=== PATIENT | female | born 1965 | race Caucasian/White ===

== ENCOUNTER → 2017-11-19 | Outpatient (CLI) | payer BC, SELFPAY | PROVIDERS: Visit Provider Internal Medicine Adolescent Medicine | DX: M25.562 Pain in left knee (principal); M25.462 Effusion, left knee | CPT/HCPCS: 73721 ==

== ENCOUNTER → 2018-12-17 15:16 | Outpatient (CLI) | payer MEDICAID, SELFPAY ==
[2018-12-17 15:31] LABS: Basophils # 0.1 K/mm3 (0-0.2); Basophils % 0.6 % (0.1-2.0); Eosinophils # 0.6 K/mm3 (0.0-0.4); Eosinophils % 4.9 % (0.1-12.0); Hematocrit 44.2 % (37.0-47.0); Hemoglobin 14.8 g/dL (12.2-16.2); Lymphocytes # 3.5 K/mm3 (0.7-4.5); Lymphocytes % 28.2 % (10-50); Mean Corpuscular HGB Conc 33.4 g/dL (31.8-35.4); Mean Corpuscular Volume 86.8 fl (81-99); Mean Platelet Volume 7.2 fl (7.4-10.4); Monocytes # 0.8 K/mm3 (0.1-1.0); Monocytes % 6.2 % (1.7-9.3); Neutrophils # 7.4 K/mm3 (1.8-7.8); Neutrophils % 60.1 % (37.0-80.0); Platelet Count 372 K/mm3 (142-424); Red Blood Count 5.09 M/mm3 (4.20-5.40); Red Cell Distribution Width 12.8 % (11.5-17.5); White Blood Count 12.3 K/mm3 (4.8-10.8)
[2018-12-17 17:32] LABS: Hemoglobin A1C 5.9 % (0.0-7.0)
[2018-12-17 18:03] LABS: Alanine Aminotransferase 42 U/L (12-78); Albumin Level 3.7 gm/dL (3.4-5.0); Alkaline Phosphatase 106 U/L (46-116); Anion Gap 14.8 mEq/L (5-15); Aspartate Amino Transferase 24 U/L (15-37); Bilirubin,Total 0.4 mg/dL (0.2-1.0); Blood Urea Nitrogen 11 mg/dL (7-18); Calcium 9.1 mg/dL (8.5-10.1); Carbon Dioxide 27 mmol/L (21.0-32.0); Chloride 102 mmol/L (98-107); Creatinine,Serum 0.85 mg/dL (0.55-1.02); Estimated Glomerular Filt Rate 69 ml/min (>60); GFR (African American) 84 ML/MIN (>60); Globulin 3.7 gm/dl (1.3-3.2); Glucose 114 mg/dL (74-106); Potassium 3.8 mmoL/L (3.5-5.1); Sodium 140 mmol/L (136-145); Thyroid Stimulating Hormone 2.11 uIU/ml (0.358-3.740); Total Protein,Serum 7.4 gm/dL (6.4-8.2)
== END ==
PROVIDERS: Visit Provider Internal Medicine Adolescent Medicine
DX: I10 Essential (primary) hypertension (principal)
CPT/HCPCS: 36415; 80053; 83036; 84443; 85025

== ENCOUNTER 2019-03-16 12:28 | Inpatient (IN) ==
[2019-03-16 13:45] LABS: Basophils # 0.1 K/mm3 (0-0.2); Basophils % 0.5 % (0.1-2.0); Eosinophils # 0.1 K/mm3 (0.0-0.4); Eosinophils % 0.6 % (0.1-12.0); Hematocrit 46.3 % (37.0-47.0); Hemoglobin 15.5 g/dL (12.2-16.2); Lymphocytes # 2.9 K/mm3 (0.7-4.5); Lymphocytes % 25.6 % (10-50); Mean Corpuscular HGB Conc 33.5 g/dL (31.8-35.4); Mean Corpuscular Volume 86.6 fl (81-99); Monocytes # 0.5 K/mm3 (0.1-1.0); Monocytes % 4.7 % (1.7-9.3); Neutrophils # 7.7 K/mm3 (1.8-7.8); Neutrophils % 68.6 % (37.0-80.0); Platelet Count 374 K/mm3 (142-424); Red Blood Count 5.34 M/mm3 (4.20-5.40); Red Cell Distribution Width 13.2 % (11.5-17.5); White Blood Count 11.3 K/mm3 (4.8-10.8)
[2019-03-16 13:56] LABS: Albumin Level 3.5 gm/dL (3.4-5.0); Albumin/Globulin Ratio 0.8 (1.1-1.8); Bilirubin,Total 0.5 mg/dL (0.2-1.0); C-Reactive Protein 0.9 mg/L (0.0-0.9); Calcium 9.3 mg/dL (8.5-10.1); Globulin 4.3 gm/dl (1.3-3.2); Total Protein,Serum 7.8 gm/dL (6.4-8.2)
--- NOTE | 2019-03-16 14:15 | Pharmacy Consult Notes ---
[facility] Pharmacy VTE Monitoring - Patient Demographics Admission date: 03/16/19 Report Date: 03/16/19 Time: 14:14 Allergies/Adverse Reactions: Patient Allergies No Known Allergies Allergy (Verified 03/16/19 13:32) Height: 1.8 m Weight: 110.903 kg - VTE Risk Labs: VTE Related Lab Results Hgb 15.5 g/dL (12.2-16.2) 03/16/19 13:20 Hct 46.3 % (37.0-47.0) 03/16/19 13:20 Plt Count 374 K/mm3 (142-424) 03/16/19 13:20 BUN 12 mg/dL (7-18) 03/16/19 13:20 Creatinine 0.77 mg/dL (0.55-1.02) 03/16/19 13:20 Estimated Creat Clear 143 mL/min (50-200) 03/16/19 13:20 Was VTE Risk Assessment Performed: Yes VTE Score: 4 VTE Risk Level: Low Risk - Prophylaxis VTE Prophylaxis Ordered?: Yes Types of VTE Prophylaxis: TEDS Knee High Location of Applied Device: Bilateral Lower Extremeties - VTE Diagnosis Confirmed Treatment or plan recommended: Continue Current Treatment
--- NOTE | 2019-03-16 21:07 | History & Physical Report ---
*Admission Date: 03/16/19 *Chief complaint: cough, soa *History of present illness: 54-year-old white female with history of asthma, exacerbated by prior history of smoking, who over the past couple of weeks has had 2 different antibiotic therapies for community acquired bronchitis but has failed to improve. Came to my office today, coughing, congested, relatively low oxygen saturations, crackles in left base, and admitted to hospital for IV therapy and hospitalization with oxygen therapy, nebulizer treatments and fluids given failure of 2 rounds of outpatient antibiotics. [facility] History I have reviewed the patient's past medical history: Yes Medical History: Reports:: Hypertension Denies:: Diabetes Mellitus Type 1, Diabetes Mellitus Type 2, MRSA *Have you ever received a pneumonia vaccine?: No *Have you received a flu vaccine this season?: Yes Other Medical History: Reports: Arthritis, Hypothyroidism Other Surgeries: Yes: Appendectomy, - *Social History Educational Level: Completed College Smoking Status: Former smoker Alcohol Intake: never *Occupational Status:: employed *Travel in the last 8 weeks: None - Psychiatric History Expresses thoughts of harming self/others: None Suicide Plan Description: No Plan Family Hx:: No significant family history Review of Systems - Review of Systems Review of systems:: pertinent systems reviewed and negative unless documented below - Constitutional Reports lack of energy, Reports malaise - ENT Reports post nasal drip, Reports sinus pain, Reports sinus pressure - *Cardiovascular Reports shortness of breath - *Respiratory Reports change in phlegm color, Reports shortness of breath with activity, Reports excessive phlegm production Meds Home Medications Medication Instructions Recorded Confirmed Type ALPRAZolam [Xanax 0.5mg tab] 1 mg PO HSP PRN 03/16/19 03/16/19 History Albuterol Sulfate [Proair 1 - 2 puffs IH Q4HP PRN 03/16/19 03/16/19 History Respiclick] Aspirin [Aspirin 81mg EC Tab] 81 mg PO DAILY 03/16/19 03/16/19 History Atorvastatin Calcium [Atorvastatin 80 mg PO HS 03/16/19 03/16/19 History 80mg Tab] Bisoprolol Fumarate [Bisoprolol 10 mg PO DAILY 03/16/19 03/16/19 History 10mg Tablet] Fluticasone/Salmeterol [Advair 1 puff INHALATION BID 03/16/19 03/16/19 History 250/50mcg Diskus] Levalbuterol HCl [Xopenex] 1.25 mg IH TIDP PRN 03/16/19 03/16/19 History Levothyroxine Sodium [Synthroid 50 mcg PO DAILY 03/16/19 03/16/19 History 50mcg (0.05mg) tab] Losartan Potassium 50 mg PO DAILY 03/16/19 03/16/19 History Potassium Chloride [Klor-con 20 20 meq PO DAILY 03/16/19 03/16/19 History mEq tablet] hydroCHLOROthiazide [HCTZ 25mg 25 mg PO DAILY 03/16/19 03/16/19 History tab] Allergies Allergy/AdvReac Type Severity Reaction Status Date / Time codeine AdvReac Verified 03/16/19 16:52 Exam Vital signs and Labs for Last 24 Hours: Temp Pulse Resp BP Pulse Ox 98.3 F 74 18 170/100 H 95 03/16/19 15:52 03/16/19 17:51 03/16/19 15:52 03/16/19 15:52 03/16/19 17:51 Laboratory Results - last 24 hr 03/16/19 13:20: WBC 11.3 H, RBC 5.34, Hgb 15.5, Hct 46.3, MCV 86.6, MCH 29.0, MCHC 33.5, RDW 13.2, Plt Count 374, MPV 7.0 L, Neut % (Auto) 68.6, Lymph % (Auto) 25.6, [place] % (Auto) 4.7, Eos % (Auto) 0.6, Baso % (Auto) 0.5, Neut # (Auto) 7.7, Lymph # (Auto) 2.9, [place] # (Auto) 0.5, Eos # (Auto) 0.1, Baso # (Auto) 0.1 03/16/19 13:20: Sodium 140, Potassium 3.0 L, Chloride 101, Carbon Dioxide 30, Anion Gap 12.0, BUN 12, Creatinine 0.77, Estimated Creat Clear 143, Estimated GFR 78, Est GFR ( Amer) 94, Glucose 109 H, Calcium 9.3, Total Bilirubin 0.5, AST 24, ALT 51, Alkaline Phosphatase 95, C-Reactive Protein 0.9, Total Protein 7.8, Albumin 3.5, Globulin 4.3 H, Albumin/Globulin Ratio 0.8 L 03/16/19 13:20: Mycoplasma pneumon IgM Reactive A I & O for Last 24 hours: Intake & Output 03/14/19 03/15/19 03/16/19 03/17/19 11:59 11:59 11:59 11:59 Intake Total 480 / 480 Balance 480 / 480 Weight 244 lb 8 oz - Constitutional mild distress, average body habitus - *Routine HEENT Exam Head: Present: normocephalic, atraumatic Eye: Present: EOMI, PERRL ENT: Present: mucous membranes dry, sinus tenderness - *Routine Neck Exam Present: supple, full ROM - *Routine Respiratory Exam Present: decreased breath sounds, rales, wheezes - *Routine Cardiovascular Exam Present: RRR, Normal S1, Normal S2 - *Routine Abdominal Exam Present: soft, normoactive bowel sounds - *Routine Extremities Exam Present: full ROM, pulses intact - *Routine Neurological Exam Present: alert, oriented X3, CN II-XII intact Assessment and Plan (1) CAP (community acquired pneumonia) Current visit: Yes Status: Acute Category: Medical Code(s): J18.9 - Pneumonia, unspecified organism Failed OP abx. admit for IV tx... solumedrol, nebs. (2) Wheezing Current visit: Yes Status: Acute Category: Medical Code(s): R06.2 - Wheezing Nebs, IV steroids.
--- NOTE | 2019-03-17 07:29 | Progress Note ---
Internal Medicine - PN: Subj *Date: 03/17/19 *Time: 07:27 Interval history: Feels somewhat better overnight. Continues to have a cough, productive of some yellow sputum. Nebs seem to be helping. Exam Vital signs and Labs for Last 24 Hours: Temp Pulse Resp BP Pulse Ox 97.7 F 79 16 151/83 H 91 L 03/17/19 04:00 03/17/19 06:30 03/17/19 04:00 03/17/19 04:00 03/17/19 06:30 Laboratory Results - last 24 hr 03/16/19 13:20: WBC 11.3 H, RBC 5.34, Hgb 15.5, Hct 46.3, MCV 86.6, MCH 29.0, MCHC 33.5, RDW 13.2, Plt Count 374, MPV 7.0 L, Neut % (Auto) 68.6, Lymph % (Auto) 25.6, [place] % (Auto) 4.7, Eos % (Auto) 0.6, Baso % (Auto) 0.5, Neut # (Auto) 7.7, Lymph # (Auto) 2.9, [place] # (Auto) 0.5, Eos # (Auto) 0.1, Baso # (Auto) 0.1 03/16/19 13:20: Sodium 140, Potassium 3.0 L, Chloride 101, Carbon Dioxide 30, Anion Gap 12.0, BUN 12, Creatinine 0.77, Estimated Creat Clear 143, Estimated GFR 78, Est GFR ( Amer) 94, Glucose 109 H, Calcium 9.3, Total Bilirubin 0.5, AST 24, ALT 51, Alkaline Phosphatase 95, C-Reactive Protein 0.9, Total Protein 7.8, Albumin 3.5, Globulin 4.3 H, Albumin/Globulin Ratio 0.8 L 03/16/19 13:20: Mycoplasma pneumon IgM Reactive A I & O for Last 24 hours: Intake & Output 03/14/19 03/15/19 03/16/19 03/17/19 11:59 11:59 11:59 11:59 Intake Total 3433 / 3433 Balance 3433 / 3433 Weight 245 lb 5 oz Microbiology Reports for the Last 24 Hours: Microbiology 03/16/19 19:30 Sputum - Expectorated Sputum Gram Stain - Final Narrative: Patient is awake, alert, oriented x3. ENT exam clear. No JVD. Lungs have rhonchi and crackles in both lower lung aponte, especially the left, but air movement is better with less wheezing. No clubbing, no cyanosis, no edema. Logic exam intact. Assessment and Plan (1) CAP (community acquired pneumonia) Current visit: Yes Status: Acute Category: Medical Code(s): J18.9 - Pneumonia, unspecified organism (2) Wheezing Current visit: Yes Status: Acute Category: Medical Code(s): R06.2 - Wheezing (3) Hypokalemia Current visit: Yes Status: Acute Category: Medical Code(s): E87.6 - Hypokalemia (4) BMI 34.0-34.9,adult Current visit: Yes Status: Acute Category: Medical Code(s): Z68.34 - Body mass index (BMI) 34.0-34.9, adult - Assessment and plan all Dx Assessment and Plan for all problems:: Overall improving. Replace potassium today. Continue antibiotics. Await culture results.
[2019-03-18 07:10] LABS: Anion Gap 14.1 mEq/L (5-15); Basophils % 0.1 % (0.1-2.0); Calcium 8.9 mg/dL (8.5-10.1); Hematocrit 41.8 % (37.0-47.0); Hemoglobin 13.9 g/dL (12.2-16.2); Lymphocytes # 1.5 K/mm3 (0.7-4.5); Lymphocytes % 13.9 % (10-50); Mean Corpuscular HGB Conc 33.4 g/dL (31.8-35.4); Mean Corpuscular Hemoglobin 29.1 pg (27.0-31.2); Mean Corpuscular Volume 87.1 fl (81-99); Mean Platelet Volume 7.3 fl (7.4-10.4); Monocytes # 0.5 K/mm3 (0.1-1.0); Monocytes % 4.1 % (1.7-9.3); Neutrophils # 9.1 K/mm3 (1.8-7.8); Platelet Count 340 K/mm3 (142-424); Potassium 3.1 mmoL/L (3.5-5.1); Red Blood Count 4.79 M/mm3 (4.20-5.40); White Blood Count 11.1 K/mm3 (4.8-10.8)
--- NOTE | 2019-03-18 09:01 | Discharge Summary ---
General - General Admission date:: 03/16/19 Discharge date: 03/18/19 HPI HPI: 54-year-old white female with history of asthma, exacerbated by prior history of smoking, who over the past couple of weeks has had 2 different antibiotic therapies for community acquired bronchitis but has failed to improve. Came to my office today, coughing, congested, relatively low oxygen saturations, crackles in left base, and admitted to hospital for IV therapy and hospitalization with oxygen therapy, nebulizer treatments and fluids given failure of 2 rounds of outpatient antibiotics. Hospital Course Hospital Course: Patient with difficult to treat pneumonia in the outpatient setting. Admitted due to acute hypoxic respiratory failure in the setting of pneumonia. Sputum cultures grew mycoplasma. Completed 3 doses of 500 mg azithromycin as an inpatient. Tolerated steroids and breathing treatments. Additionally was treated with ceftriaxone. Plan to continue Cefdinir for total of 14-day course. During admission initially required oxygen due to hypoxemia. On day of discharge was walked with sustained O2 sat of 92 or greater. No criteria met for home oxygen. Plan to continue breathing treatments and antibiotics. Blood pressure remains slightly elevated. Has made titration to the outpatient setting we will adjust her losartan to 100 mg daily for improved blood pressure control. Plan to follow-up over the next week as an outpatient. Remains afebrile, no nausea or vomiting, shortness of breath interval improved. Medically stable for discharge home. Objective Vital signs: Temp Pulse Resp BP Pulse Ox 97.7 F 85 18 147/91 H 92 L 03/18/19 08:00 03/18/19 08:00 03/18/19 08:00 03/18/19 08:00 03/18/19 08:39 Narrative: Patient is awake, alert, oriented x3. ENT exam clear. No JVD. Lungs have rhonchi and minimal crackles in both lower lung aponte, especially the left, but air movement is good bilaterally with no wheeze No clubbing, no cyanosis, no edema. Neurologic exam intact. Results Labs on day of discharge: Labs from last 24 hours 03/18/19 03/18/19 06:07 06:07 WBC 11.1 H RBC 4.79 Hgb 13.9 Hct 41.8 MCV 87.1 MCH 29.1 MCHC 33.4 RDW 13.0 Plt Count 340 MPV 7.3 L Neut % (Auto) 82.0 H Lymph % (Auto) 13.9 [place] % (Auto) 4.1 Eos % (Auto) 0.0 L Baso % (Auto) 0.1 Neut # (Auto) 9.1 H Lymph # (Auto) 1.5 [place] # (Auto) 0.5 Eos # (Auto) 0.0 Baso # (Auto) 0.0 Sodium 141 Potassium 3.1 L Chloride 103 Carbon Dioxide 27 Anion Gap 14.1 BUN 14 Creatinine 0.88 Estimated Creat Clear 126 Estimated GFR 66 Est GFR ( Amer) 80 Glucose 159 H Calcium 8.9 Preliminary micro results at discharge 03/16/19 19:30 Sputum Culture - Preliminary Sputum - Expectorated Sputum DS: Diagnosis - Discharge Diagnosis (1) CAP (community acquired pneumonia) Status: Acute (2) Wheezing Status: Resolved (3) Hypokalemia Status: Resolved (4) BMI 34.0-34.9,adult Status: Chronic (5) Hypertension Status: Chronic Discharge Plan - Patient Discharge Instructions ACTIVITY: Continue current activity DIET: continue same diet Patient Instructions: DI for Pneumonia -- Adult - Follow up Plan Follow up with: Tariq Johnston MD [Staff Physician] - Disposition: Home, Self-Correction Medications: Home Medications Medication Instructions Recorded Confirmed Type ALPRAZolam [Xanax 0.5mg tab] 1 mg PO HSP PRN 03/16/19 03/16/19 History Aspirin [Aspirin 81mg EC Tab] 81 mg PO DAILY 03/16/19 03/16/19 History Atorvastatin Calcium [Atorvastatin 80 mg PO HS 03/16/19 03/16/19 History 80mg Tab] Bisoprolol Fumarate [Bisoprolol 10 mg PO DAILY 03/16/19 03/16/19 History 10mg Tablet] Fluticasone/Salmeterol [Advair 1 puff INHALATION BID 03/16/19 03/16/19 History 250/50mcg Diskus] Levalbuterol HCl [Xopenex] 1.25 mg IH TIDP PRN 03/16/19 03/16/19 History Levothyroxine Sodium [Synthroid 50 mcg PO DAILY 03/16/19 03/16/19 History 50mcg (0.05mg) tab] Potassium Chloride [Klor-con 20 20 meq PO DAILY 03/16/19 03/16/19 History mEq tablet] hydroCHLOROthiazide [HCTZ 25mg 25 mg PO DAILY 03/16/19 03/16/19 History tab] Cefdinir [Omnicef 300mg Capsule] 300 mg PO BID 12 Days #15 cap 03/18/19 Rx Ipratropium/Albuterol Sulfate 3 ml IH Q6RT 30 Days #100 ampul.neb 03/18/19 Rx [Duoneb 3mL neb] Losartan Potassium 100 mg PO DAILY 30 Days #60 tab 03/18/19 Rx Prescriptions/Medication Reconciliation: New Ipratropium/Albuterol Sulfate [Duoneb 3mL neb] 3 ml IH Q6RT 30 Days #100 ampul.neb Cefdinir [Omnicef 300mg Capsule] 300 mg PO BID 12 Days #15 cap Continued Potassium Chloride [Klor-con 20 mEq tablet] 20 meq PO DAILY hydroCHLOROthiazide [HCTZ 25mg tab] 25 mg PO DAILY Aspirin [Aspirin 81mg EC Tab] 81 mg PO DAILY Bisoprolol Fumarate [Bisoprolol 10mg Tablet] 10 mg PO DAILY ALPRAZolam [Xanax 0.5mg tab] 1 mg PO HSP PRN PRN Reason: Sleep Fluticasone/Salmeterol [Advair 250/50mcg Diskus] 1 puff INHALATION BID Atorvastatin Calcium [Atorvastatin 80mg Tab] 80 mg PO HS Levalbuterol HCl [Xopenex] 1.25 mg IH TIDP PRN PRN Reason: Wheezing Levothyroxine Sodium [Synthroid 50mcg (0.05mg) tab] 50 mcg PO DAILY Changed Losartan Potassium 100 mg PO DAILY 30 Days #60 tab Discontinued Albuterol Sulfate [Proair Respiclick] 1 - 2 puffs IH Q4HP PRN PRN Reason: shortness of air
== END 2019-03-18 10:40 | disposition home or self-care (01) | DRG 189 ==
LOC: 2ND 12:33
PROVIDERS: ADMIT Internal Medicine Adolescent Medicine; ATTEND Internal Medicine Adolescent Medicine
CPT/HCPCS: 36415; 71020; 71046; 80048; 80053; 85025; 86140; 86738; 87040; 87070; 87205; 93005; 94640; 94761; J0456

== ENCOUNTER → 2019-08-23 13:51 | Outpatient (CLI) | payer BC, SELFPAY | PROVIDERS: PCP Internal Medicine Adolescent Medicine; Visit Provider Internal Medicine Adolescent Medicine | DX: R55 Syncope and collapse (principal); R29.818 Other symptoms and signs involving the nervous system; R00.2 Palpitations | CPT/HCPCS: 93225; 93226 ==

== ENCOUNTER → 2019-08-29 09:44 | Outpatient (CLI) | payer BC, SELFPAY ==
--- NOTE | 2019-08-29 09:47 | MR_ITS ---
PROCEDURE: MR HEAD/BRAIN WO CON CLINICAL INDICATION: SYNCOPE COMPARISON: CT HEAD/BRAIN WO CON from 08/12/2019 TECHNIQUE: Routine multi-echo multiplanar images. FINDINGS: There are no areas restricted diffusion. There is a 1.1 centimeter extra-axial lesion from the mesial superior right frontal area. This has smooth margins and is of equal signal compared to the cortical areas. There is no extra-axial fluid collection or other mass lesions. There is no acute hemorrhage. Ventricles, sulci, cortical areas and brainstem structures are normal. Visualized portions of the optic pathway structures are normal. The visualized vessels are patent and the area of the foramen magnum is normal. There is partially empty sella turcica likely age related. There are no other changes to suggest intracranial hypertension. IMPRESSION: No acute process and no acute ischemic areas. 1.1 centimeters mesial superior right frontal extra-axial lesion likely benign meningioma. Dictated by: Pablo David 08/29/2019 11:56 Electronically signed by Pablo David in [facility] 08/29/2019 11:56
--- NOTE | 2019-08-29 10:42 | CA_ITS ---
APPROVED REPORT EXAM: Comprehensive 2D, Doppler, and color-flow Echocardiogram Staff Auditor: Cecile Salmon RVT Ht: 5 ft 11 in Wt: 250lbs BSA: 2.32 BP: 146/83 mmHg Indications: Syncope, Dizziness and Vertigo, Hyperlipidemia, Hypertension,Hx of smoking, Bubble Study Echo Enhancing Agent Indication: Rule out Shunt Agent(s) / Amount(s) Used: Agitated Saline 5 cc 2D Dimensions IVSd 1.00 cm F: 0.6-1.0 LVEF (Visual) 61.30 % PWd 1.30 cm F: 0.6 - 1.0 LVDd 4.30 cm F: 3.9 - 5.3 LVDs 2.90 cm F: 2.2 - 3.5 LVOT 2.50 cm (M/F) 1.5-2.5 M-Mode Dimensions LA Diam 4.10 cm (1.9-4.0) LVDd 7.80 cm (3.5-5.7) Ao Diam 2.20 cm (2.0-3.7) LVDs 5.70 cm (3.5-5.7) AV Cusp 2.30 cm (1.5-2.6) IVSd 1.40 cm (0.6-1.1) PWd 0.80 cm (0.6-1.1) EF (Teich) 50.90% FS 26.90% EDV (Teich) 326.00 mL ESV (Teich) 160.00 mL LV Diastology E/A Ratio 0.9 MED E' 5.85 (< 7 cm/sec) E'/MED E' Ratio 10.50 (>14) LAT E' 13.20 (<10 cm/sec) E/LAT E' Ratio 4.70 (>14) Aortic Valve AoV Peak Solis. 94.30 (50-130 cm/s) AO Peak GR. 4.00 mmHg Mitral Valve MV E Max Solis. 61.70 (40-130 cm/s) MV A Velocity 72.10 (40-130 cm/s) E/A Ratio 0.90 Pulmonary Valve PA Accel Time 155.00 (>120 msec) Left Ventricle Left atrium is mildly enlarged, left ventricle is normal size, mild concentric left ventricular hypertrophy, visually estimated ejection fraction 55% with no regional wall motion abnormality. Grade 1 diastolic dysfunction seen without tissue Doppler evidence of raise left atrial pressure. Right Ventricle Right atrium and right ventricular mildly enlarged with normal contractility. Atria Interatrial septum is intact, there is no flow across the interatrial septum, agitated saline contrast study fails to identify intracardiac shunt. Aortic Valve Aortic valve is minimally thickened and fibrosed. Mitral Valve Mitral valve is grossly normal, there is mild mitral regurgitation. Tricuspid Valve Tricuspid valve is grossly normal, there is mild tricuspid regurgitation. Tricuspid regurgitation jet velocity is inadequate for calculation of the right ventricular systolic pressure. Pulmonic Valve Pulmonic valve is poorly visualized. Great Vessels Aortic root is normal size. Pericardium No significant pericardial effusion noted. Conclusion 1. Mild biatrial enlargement, normal left ventricular size, mild concentric left ventricular hypertrophy, visually estimated ejection fraction 55% with no regional wall motion abnormality, grade 1 diastolic dysfunction seen without tissue Doppler evidence of raise left atrial pressure. 2. Mildly enlarged right ventricle with normal contractility. 3. Intra-atrial septum is intact, there is no flow across the interatrial septum, agitated saline contrast study fails to identify intracardiac shunt. 4. Mild mitral and tricuspid regurgitation. 5. No significant pericardial effusion noted. Electronically signed by : Jorge Uriostegui, 09/01/2019 16:17:38
== END ==
PROVIDERS: PCP Internal Medicine Adolescent Medicine; Visit Provider Internal Medicine Adolescent Medicine
DX: R55 Syncope and collapse (principal); R00.2 Palpitations; R29.818 Other symptoms and signs involving the nervous system
CPT/HCPCS: 70551; 93306

== ENCOUNTER → 2019-08-31 09:47 | Outpatient (CLI) | payer BC, MEDICAID, SELFPAY | PROVIDERS: PCP Internal Medicine Adolescent Medicine; Visit Provider Internal Medicine Adolescent Medicine | DX: R55 Syncope and collapse (principal) | CPT/HCPCS: 95816 ==

== ENCOUNTER → 2020-05-01 12:27 | Outpatient (CLI) | payer BC, SELFPAY ==
[2020-05-01 13:46] LABS: Alanine Aminotransferase 110 U/L (12-78); Albumin Level 4.8 g/dl (3.5-5.0); Albumin/Globulin Ratio 1.4 (1.1-1.8); Alkaline Phosphatase 122 U/L (38-126); Anion Gap 12.7 mEq/L (5-15); Aspartate Amino Transferase 123 U/L (14-36); Bilirubin,Total 0.9 mg/dl (0.2-1.3); Blood Urea Nitrogen 17 mg/dl (7-17); Calcium 10.6 mg/dl (8.4-10.2); Carbon Dioxide 33 mmol/L (22.0-30.0); Chloride 97 mmol/L (98-107); Chol/HDL Ratio 3.2 (1-3.5); Cholesterol 177 mg/dl (140-200); Estimated Glomerular Filt Rate 103 ml/min (>60); GFR (African American) 125 ML/MIN (>60); Globulin 3.4 g/dL (1.3-3.2); Glucose 115 mg/dl (74-100); HDL Cholesterol 56 mg/dl (40-60); Potassium 3.7 mmoL/L (3.5-5.1); Sodium 139 mmol/L (136-145); Total Protein,Serum 8.2 g/dl (6.3-8.2); Triglycerides 174 mg/dl (30-150); VLDL Cholesterol 35 mg/dL (0-40)
[2020-05-01 13:57] LABS: Direct LDL Cholesterol 104.53 mg/dL (100-129)
[2020-05-04 08:42] LABS: Parathyroid Hormone Intact 34 pg/mL (15-65)
== END ==
PROVIDERS: Visit Provider Internal Medicine Adolescent Medicine
DX: E78.5 Hyperlipidemia, unspecified (principal); I10 Essential (primary) hypertension; E03.9 Hypothyroidism, unspecified
CPT/HCPCS: 36415; 80053; 80061; 82652; 83036; 83970; 84443

== ENCOUNTER → 2020-08-16 10:40 | Outpatient (CLI) | payer BC, SELFPAY ==
[2020-08-17 20:26] LABS: Covid-19 Nasal PCR Sendout Lex Not Detected
== END ==
PROVIDERS: PCP Nurse Practitioner Family; Visit Provider Nurse Practitioner Family
DX: Z03.818 Encounter for observation for suspected exposure to other biological agents ruled out (principal)
CPT/HCPCS: U0004

== ENCOUNTER 2020-12-01 11:58 | Observation (INO) | payer BC, SELFPAY ==
[2020-12-01] VITALS (11 sets, daily range): BP systolic 119–152; BP diastolic 86–102; PULSE 66–87; RESP 14–20; TEMP 36.4–37.4; O2SAT 92–98; BMI 35.9; BMI 34.8; BMI 37.3
--- NOTE | 2020-12-01 13:41 | CT_ITS ---
PROCEDURE: CT ABDOMEN PELVIS WO CON CLINICAL INDICATION: abd pain COMPARISON: CT ABDPELW CT ABD PELVIS W/ CONTRAST from 09/13/2013 TECHNIQUE: Axial images obtained with sagittal and coronal reformats. All CT scans at the facility use one or more dose reduction, viz: automated exposure control, ma/kV adjustment per patient size (including targeted exams where dose is matched to indication, i.e. head), or iterative reconstruction technique. FINDINGS: Lower thorax: [place] are clear of infiltrate and there is no pleural fluid. There is a noncalcified pulmonary nodule approximately 7 mm within the right middle lobe and a possible 2-3 mm noncalcified nodules superior segment right lower lobe. Consider follow-up CT scan of the chest without contrast for better evaluation of these pulmonary nodules ABDOMEN: Liver: There is mild diffuse hypodensity suggesting mild fatty infiltration. There are no focal lesions. Gallbladder: Nondistended. No radio opaque stones. Pancreas: No masses or peripancreatic fluid collections. Spleen: unremarkable Adrenals: unremarkable Kidneys/ureters: The kidneys are normal in size and no calculi and there is no obstructive uropathy. ABDOMEN & PELVIS: Stomach bowel: There is a small hiatal hernia. The stomach duodenal sweep and small bowel appear normal. There is scattered stool and gas seen throughout the colon. There is no diverticulosis identified. Peritoneum: There are few small surgical clips seen just beneath the anterior peritoneal cavity and just beneath the rectus abdominus muscles and these were seen previously. There is a tiny umbilical hernia containing fat only. Lymph nodes: No enlarged lymph nodes apparent. Vasculature: No evidence of abdominal aortic aneurysm. No retroperitoneal hemorrhage evident. Bones: There are moderate degenerative changes T11-12 level. PELVIS: Reproductive: Post hysterectomy Bladder: Moderately decompressed, there is no free fluid in the pelvis. Appendix: Post appendectomy IMPRESSION: Mild fatty infiltration of the liver, no acute abdominal or pelvic pathology identified Dictated by: Dr. Efra Claudio MD 12/01/2020 14:19 Dr. Efra Claudio MD in [place] 12/01/2020 14:19
[2020-12-01 13:51] LABS: Basophils # 0.1 K/mm3 (0-0.2); Basophils % 0.6 % (0.1-2.0); Eosinophils # 0.2 K/mm3 (0.0-0.4); Eosinophils % 1.7 % (0.1-12.0); Hematocrit 43.1 % (37.0-47.0); Hemoglobin 14.8 g/dL (12.2-16.2); Lymphocytes # 2.9 K/mm3 (0.7-4.5); Lymphocytes % 21.9 % (10-50); Mean Corpuscular HGB Conc 34.3 g/dL (31.8-35.4); Mean Corpuscular Hemoglobin 30.1 pg (27.0-31.2); Mean Corpuscular Volume 87.8 fl (81-99); Mean Platelet Volume 7.5 fl (7.4-10.4); Monocytes # 0.7 K/mm3 (0.1-1.0); Monocytes % 5.1 % (1.7-9.3); Neutrophils # 9.4 K/mm3 (1.8-7.8); Neutrophils % 70.7 % (37.0-80.0); Platelet Count 460 K/mm3 (142-424); Red Blood Count 4.91 M/mm3 (4.20-5.40); Red Cell Distribution Width 13.8 % (11.5-17.5); White Blood Count 13.2 K/mm3 (4.8-10.8)
[2020-12-01 13:55] LABS: Amylase 42 U/L (30-110); Anion Gap 14.7 mEq/L (5-15); Blood Urea Nitrogen 12 mg/dl (7-17); Calcium 9.4 mg/dl (8.4-10.2); Carbon Dioxide 32 mmol/L (22.0-30.0); Chloride 97 mmol/L (98-107); Creatinine Clearance Estimated 123 mL/min (50-200); Estimated Glomerular Filt Rate 65 ml/min (>60); GFR (African American) 78 ML/MIN (>60); Glucose 134 mg/dl (74-100); Lipase 93 U/L (23-300); Sodium 141 mmol/L (136-145)
--- NOTE | 2020-12-01 13:56 | HMH.EDGENADL ---
ED Disposition Clinical Impression: Upper abdominal pain, Hypokalemia, Hypomagnesemia Disposition: Admitted As Inpatient Condition on Discharge: Good - Critical Care Critical Care Time: Yes Attestation: On 12/01/20, the high probability of a clinically significant, sudden or life threatening deterioration of the following system(s) required my full and direct attention, intervention and personal management. The time I documented below is in addition to time spent performing reported procedures but includes the following listed in this critical care notation. Total Critical Care Time: 20 Vital system(s) involved:: Metabolic Failure My critical care processes included: Assessment & monitoring of V/S, Initial and Re-exams, Data Review/Interpretation, Coordinating Care, Medication Orders and management, Documentation Medical Decision Making - Carlos Inquiry Pt receiving controlled substance: No Vital Signs: 12/01/20 13:00 12/01/20 13:20 12/01/20 14:52 Temperature 99.3 F 98.3 F Temperature Source Oral Oral Pulse Rate Pulse Rate [Left Radial] 68 66 67 Respiratory Rate 14 20 18 Blood Pressure Blood Pressure [Right Arm] 152/96 H 145/102 H 142/88 H Blood Pressure Mean [Right Arm] 114 116 106 Blood Pressure Source Blood Pressure Source [Right Arm] Automatic Cuff Automatic Cuff Automatic Cuff Blood Pressure Position Blood Pressure Position [Right Arm] Sitting Supine Sitting 02 Sat by Pulse Oximetry 95 98 95 Oxygen Delivery Method Room Air Room Air 12/01/20 15:40 12/01/20 16:34 12/01/20 16:55 Temperature Temperature Source Pulse Rate Pulse Rate [Left Radial] 66 66 71 Respiratory Rate 18 18 20 Blood Pressure Blood Pressure [Right Arm] 149/97 H 131/93 H 131/93 H Blood Pressure Mean [Right Arm] 114 105 105 Blood Pressure Source Blood Pressure Source [Right Arm] Automatic Cuff Automatic Cuff Automatic Cuff Blood Pressure Position Blood Pressure Position [Right Arm] Sitting Sitting Sitting 02 Sat by Pulse Oximetry 96 94 L 92 L Oxygen Delivery Method Room Air 12/01/20 17:00 12/01/20 17:18 Temperature 98.2 F Temperature Source Oral Pulse Rate 87 Pulse Rate [Left Radial] Respiratory Rate 16 Blood Pressure 129/90 Blood Pressure [Right Arm] Blood Pressure Mean [Right Arm] Blood Pressure Source Automatic Cuff Blood Pressure Source [Right Arm] Blood Pressure Position Sitting Blood Pressure Position [Right Arm] 02 Sat by Pulse Oximetry Oxygen Delivery Method Room Air Room Air - Lab Data Lab Results 12/01/20 13:30: Total Bilirubin 0.8, Direct Bilirubin 0.3, Conjugated Bilirubin 0.0, Indirect Bilirubin 0.5, Unconjugated Bilirubin 0.5, AST 65 H, ALT 67, Alkaline Phosphatase 101, Total Protein 8.3 H, Albumin 4.5 12/01/20 13:38: WBC 13.2 H, RBC 4.91, Hgb 14.8, Hct 43.1, MCV 87.8, MCH 30.1, MCHC 34.3, RDW 13.8, Plt Count 460 H, MPV 7.5, Neut % (Auto) 70.7, Lymph % (Auto) 21.9, Iron % (Auto) 5.1, Eos % (Auto) 1.7, Baso % (Auto) 0.6, Neut # (Auto) 9.4 H, Lymph # (Auto) 2.9, Iron # (Auto) 0.7, Eos # (Auto) 0.2, Baso # (Auto) 0.1 12/01/20 13:38: Sodium 141, Potassium 2.7 L*, Chloride 97 L, Carbon Dioxide 32 H, Anion Gap 14.7, BUN 12, Creatinine 0.90, Estimated Creat Clear 123, Estimated GFR 65, Est GFR ( Amer) 78, Glucose 134 H, Calcium 9.4, Magnesium 0.7 L, Amylase 42, Lipase 93 12/01/20 13:38: Troponin I < 0.01 12/01/20 13:39: SARS-CoV-2 IgG Ab (Rapid) Negative, SARS-CoV-2 IgM Ab (Rapid) Negative Result diagrams: 12/01/20 13:38 12/01/20 13:38 Orders (Tests/Meds): ED MEDICATIONS Generic Name Dose Route Start Last Admin Trade Name Freq PRN Reason Stop Dose Admin Sodium Chloride 1,000 mls @ 50 mls/hr 12/01/20 15:30 12/01/20 15:31 Sod Chlor 0.9% 1000ml Bag IV 12/31/20 15:29 50 mls/hr .Q20H JESSICA Administration Magnesium Sulfate 2 gm/ Sodium 104 mls @ 100 mls/hr 12/01/20 18:15 12/01/20 18:47 Chloride IV 12/01/20 20:14 100 mls/hr Q1H JESSICA
[2020-12-01 13:57] LABS: Magnesium 0.7 mg/dl (1.6-2.3); Potassium 2.7 mmoL/L (3.5-5.1)
[2020-12-01 14:06] LABS: Alanine Aminotransferase 67 U/L (12-78); Albumin Level 4.5 g/dl (3.5-5.0); Alkaline Phosphatase 101 U/L (38-126); Aspartate Amino Transferase 65 U/L (14-36); Bilirubin,Direct 0.3 mg/dl (0.0-0.4); Bilirubin,Indirect 0.5 mg/dL (0.0-0.9); Bilirubin,Total 0.8 mg/dl (0.2-1.3); Bilirubin,Unconjugated 0.5 mg/dL (0.0-1.1); Total Protein,Serum 8.3 g/dl (6.3-8.2)
--- NOTE | 2020-12-01 14:41 | ECG_ITS ---
APPROVED REPORT Exam: Resting ECG HR:63 bpm ECG Measurements Heart Rate 63 AXES CO 146 P 70 QRSd 102 QRS -12 QT 450 T 2 QTc 460 Conclusion Normal sinus rhythm Incomplete right bundle branch block Abnormal ECG Electronically signed by : Adolfo Weber, 12/02/2020 13:35:32
--- NOTE | 2020-12-01 15:11 | PC.NURSE ---
speaking with Dr. Headley
[2020-12-01 15:13] LABS: Troponin I < 0.01 ng/ml (0.00-0.034)
[2020-12-01 16:14] LABS: Coronavirus 19 IgG Antibody Negative (Negative); Coronavirus 19 IgM Antibody Negative (Negative)
--- NOTE | 2020-12-01 17:58 | PC.NURSE ---
spoke with pharmacist [employer]al food service supervisor theo nguyen about mixing magnesium. order is for 4gm in a 100 ml bag. pharmacist stated to mix only 2gm in a 100ml ns bag and to give two runs. each will run over 1 hour.
[2020-12-01 18:41] LABS: Troponin I < 0.01 ng/ml (0.00-0.034)
--- NOTE | 2020-12-01 19:28 | PC.NURSE ---
SHE IS AOX4, ABLE OT MAKE NEEDS KNOWN TO STAFF, NSR ON TELE, TOLERATING RA WELL, AMBULATES TOLERATED, DENIES PAIN AT THIS TIME, TOLERATING REGULAR DIET WELL, NO NEEDS AT THIS TIME
[2020-12-01 22:51] LABS: Anion Gap 11.5 mEq/L (5-15); Blood Urea Nitrogen 10 mg/dl (7-17); Calcium 9.1 mg/dl (8.4-10.2); Carbon Dioxide 32 mmol/L (22.0-30.0); Chloride 97 mmol/L (98-107); Creatinine Clearance Estimated 149 mL/min (50-200); Estimated Glomerular Filt Rate 74 ml/min (>60); GFR (African American) 89 ML/MIN (>60); Glucose 114 mg/dl (74-100); Sodium 138 mmol/L (136-145)
[2020-12-01 22:53] LABS: Magnesium 2.2 mg/dl (1.6-2.3); Potassium 2.5 mmoL/L (3.5-5.1)
--- NOTE | 2020-12-01 23:03 | P.CONPHA_ITS ---
[facility] VTE Monitoring - Patient Demographics Admission date: 12/01/20 Report Date: 12/01/20 Time: 23:04 Allergies/Adverse Reactions: Patient Allergies codeine Adverse Reaction (Verified 03/16/19 16:52) Height: 1.8 m Weight: 121.251 kg Patient Problems: Current Active Problems Upper abdominal pain (Acute) Hypokalemia (Acute) Hypomagnesemia (Acute) - VTE Risk Labs: VTE Related Lab Results Hgb 14.8 g/dL (12.2-16.2) 12/01/20 13:38 Hct 43.1 % (37.0-47.0) 12/01/20 13:38 Plt Count 460 K/mm3 (142-424) H 12/01/20 13:38 BUN 10 mg/dl (7-17) 12/01/20 22:30 Creatinine 0.80 mg/dl (0.52-1.04) 12/01/20 22:30 Estimated Creat Clear 149 mL/min (50-200) 12/01/20 22:30 Was VTE Risk Assessment Performed: Yes VTE Score: 8 VTE Risk Level: Moderate Risk Clinical Trial Participant: No - Prophylaxis VTE Prophylaxis Ordered?: Yes Types of VTE Prophylaxis: TEDS Knee High
--- NOTE | 2020-12-01 23:11 | HMH.PHAINT ---
COMPLETED HOME MEDICATION RECONCILIATION LIST USING LIST FROM CLINIC PHARMACY
[2020-12-02] VITALS: PULSE 60
[2020-12-02 04:00] VITALS: BP 139/85; PULSE 60; PULSE 61; RESP 18; TEMP 36.4; O2SAT 91
[2020-12-02 05:01] VITALS: BMI 37.5
--- NOTE | 2020-12-02 06:04 | PC.NURSE ---
pt iv infusing per order. pt did report having a panic attack this shift. pt was able to calm down quickly after reassured that telemetry was NSR and a break from iv infusion. vss. alert and oriented. ambulates independently. call light in reach. will continue to monitor pt condition.
[2020-12-02 07:00] LABS: Blood Urea Nitrogen 9 mg/dl (7-17); Carbon Dioxide 33 mmol/L (22.0-30.0); Chloride 99 mmol/L (98-107); Creatinine Clearance Estimated 149 mL/min (50-200); Estimated Glomerular Filt Rate 74 ml/min (>60); GFR (African American) 89 ML/MIN (>60); Glucose 116 mg/dl (74-100); Magnesium 1.9 mg/dl (1.6-2.3); Sodium 140 mmol/L (136-145)
--- NOTE | 2020-12-02 07:51 | HMH.HPDC ---
General - General Admission date:: 12/01/20 Discharge date: 12/02/20 *Admission Date: 12/01/20 *Chief complaint: Abdominal pain *History of present illness: Ms. Chandler is a 55-year-old female who presented to the ER yesterday because of worsening abdominal pain over the past week. Pain is prominent across her upper abdomen when she lays down, better when she sits up. Has had poor p.o. intake for a day or 2. Denies any vomiting but complains of nausea. No shortness of breath or chest pain. On initial assessment was found to have significant electrolyte disturbances with hypokalemia and hypomagnesemia. Was given a dose of Protonix with some slight improvement in her abdominal discomfort. Poor p.o. tolerance during stay in ER. Admitted for further management of her electrolyte disturbances and abdominal pain. CT obtained of her abdomen that showed some steatohepatitis but otherwise no significant abnormalities. Gallbladder and kidneys appeared normal. [facility] History I have reviewed the patient's past medical history: Yes Medical History: Reports:: Hypertension Denies:: Cancer, Diabetes Mellitus Type 1, Diabetes Mellitus Type 2, MRSA *Have you ever received a pneumonia vaccine?: Yes *Have you received a flu vaccine this season?: Yes Other Medical History: Reports: Arthritis, Hypothyroidism Laterality Cases: Bilateral: Tonsillectomy Other Surgeries: Yes: Appendectomy, Amputation: No - *Social History Last grade of school completed: Advanced degree Smoking Status: Former smoker Tobacco Type: cigarettes Alcohol Intake: current Alcohol Intake Frequency:: holidays/special occasions only *Occupational Status:: employed Housing: house Household Members: spouse *Travel in the last 8 weeks: None Family Hx:: Cancer, Hypertension Review of Systems - Review of Systems Review of systems:: pertinent systems reviewed and negative unless documented below (14 point review of systems performed, pertinent positives and negatives as per HPI) Exam Vital signs and Labs for Last 24 Hours: Temp Pulse Resp BP Pulse Ox 97.6 F 61 18 139/85 91 L 12/02/20 04:00 12/02/20 04:00 12/02/20 04:00 12/02/20 04:00 12/02/20 04:00 Laboratory Results - last 24 hr 12/01/20 13:30: Total Bilirubin 0.8, Direct Bilirubin 0.3, Conjugated Bilirubin 0.0, Indirect Bilirubin 0.5, Unconjugated Bilirubin 0.5, AST 65 H, ALT 67, Alkaline Phosphatase 101, Total Protein 8.3 H, Albumin 4.5 12/01/20 13:38: WBC 13.2 H, RBC 4.91, Hgb 14.8, Hct 43.1, MCV 87.8, MCH 30.1, MCHC 34.3, RDW 13.8, Plt Count 460 H, MPV 7.5, Neut % (Auto) 70.7, Lymph % (Auto) 21.9, Bond % (Auto) 5.1, Eos % (Auto) 1.7, Baso % (Auto) 0.6, Neut # (Auto) 9.4 H, Lymph # (Auto) 2.9, Bond # (Auto) 0.7, Eos # (Auto) 0.2, Baso # (Auto) 0.1 12/01/20 13:38: Sodium 141, Potassium 2.7 L*, Chloride 97 L, Carbon Dioxide 32 H, Anion Gap 14.7, BUN 12, Creatinine 0.90, Estimated Creat Clear 123, Estimated GFR 65, Est GFR ( Amer) 78, Glucose 134 H, Calcium 9.4, Magnesium 0.7 L, Amylase 42, Lipase 93 12/01/20 13:38: Troponin I < 0.01 12/01/20 13:39: SARS-CoV-2 IgG Ab (Rapid) Negative, SARS-CoV-2 IgM Ab (Rapid) Negative 12/01/20 18:03: Troponin I < 0.01 12/01/20 22:30: Sodium 138, Potassium 2.5 L*, Chloride 97 L, Carbon Dioxide 32 H, Anion Gap 11.5, BUN 10, Creatinine 0.80, Estimated Creat Clear 149, Estimated GFR 74, Est GFR ( Amer) 89, Glucose 114 H, Calcium 9.1, Magnesium 2.2 D 12/02/20 06:26: Sodium 140, Potassium 3.0 L, Chloride 99, Carbon Dioxide 33 H, Anion Gap 11.0, BUN 9, Creatinine 0.80, Estimated Creat Clear 149, Estimated GFR 74, Est GFR ( Amer) 89, Glucose 116 H, Calcium 9.0, Magnesium 1.9 D I & O for Last 24 hours: Intake & Output 12/11/30/20 12/01/20 12/02/20 23:59 23:59 23:59 23:59 Intake Total 653 / 653 Output Total 550 / 550 950 / 950 Balance -550 / -550 -297 / -297 Weight 121.251 kg 121.619 kg - Constitutional no acute distress, obese
[2020-12-02 07:57] VITALS: BP 135/90; PULSE 75; RESP 18; TEMP 36.6; O2SAT 96
[2020-12-02 08:00] VITALS: PULSE 80
--- NOTE | 2020-12-02 09:24 | PC.NURSE ---
PT STATES THAT SHE DOES NOT WANT TO TAKE HOSPITAL MEDS AND THAT SHE WILL TAKE MEDICATIONS UPON D/C. SHE IS AGREEABLE TO RECEIVING HER 2 RUNS OF KCL ORDERED. DISCHARGE ORDER HAS BEEN ENTERED. WILL CONTINUE TO MONITOR PT.
== END 2020-12-02 12:00 | disposition home or self-care (01) ==
LOC: UTC 12:00 → ER 13:16 → 2ND 17:38
PROVIDERS: Emergency Medicine; Admitting Provider Family Medicine; Emergency Provider Nurse Practitioner Family; PCP Internal Medicine Adolescent Medicine; Visit Provider Internal Medicine Adolescent Medicine
DX: R10.9 Unspecified abdominal pain (principal); I10 Essential (primary) hypertension; Z87.891 Personal history of nicotine dependence; E87.6 Hypokalemia; E83.42 Hypomagnesemia; Z79.899 Other long term (current) drug therapy; Z79.51 Long term (current) use of inhaled steroids
CPT/HCPCS: 36415; 74176; 80048; 80076; 82150; 83690; 83735; 84484; 85025; 86328; 93005; 96365; 96375; 99284; G0378

== ENCOUNTER → 2022-09-19 07:37 | Outpatient (CLI) | payer BC, SELFPAY ==
--- NOTE | 2022-09-19 07:42 | CT_ITS ---
FINAL REPORT CLINICAL HISTORY: H/O NICOTINE DEPENDENCE. former smoker quit 4 years ago. smoked 1/2 ppd x 30 years. no family hx of cancer. FINDINGS: Low-Dose Chest CT Axial images were obtained from the lung apex to the mid abdomen by computed tomography. Low-dose protocol was utilized. CTDI vol (mGy): 2.90 DLP (mGy-cm): 110.98 There is no axillary adenopathy. There is no hilar or mediastinal adenopathy. The heart is proper size. There are moderate left coronary artery calcifications. There is no pericardial or pleural effusion. Lung window images demonstrate mild changes of emphysema with mild pulmonary scarring. There is a 5 mm medial right upper lobe nodule on image 29. There is a 5 mm right lower lobe nodule on image 53. There is a 6 mm nodule along the minor fissure which is likely an intra fissural lymph node. Limited images of the upper abdomen are unremarkable. IMPRESSION: Pulmonary nodules as above. Lung RADS category 2. Recommend 12 month follow-up low-dose chest CT. Reviewed, Interpreted and Dictated by Ranjit Mcgee III, MD Transcribed by Stephanie Patton Authenticated and [facility]
--- NOTE | 2022-09-19 07:43 | XR_ITS ---
FINAL REPORT TECHNIQUE: Bone densitometry calculations of the lumbar spine and hip were obtained. CLINICAL HISTORY: . screening FINDINGS: DEXA BONE DENSITY AXIAL SKELETON Using L1-4, the bone mineral density of the spine is 1.076 g/cm2, corresponding to T-score of 0.3. Normal bone mineral density. Using the right hip, the bone mineral density of the femoral neck is 0.720 g/cm2, corresponding to a T-score of -1.2. Diminished bone mineral density. NOTE: T-score: Standard deviation compared with peak bone mass of young adult mean. *Following the recommendations of the International Society of Bone densitometry, classification of hip BMD is based on the lower of two T-scores; total hip or femoral neck. IMPRESSION: Diminished bone mineral density of the lumbar spine and left hip consistent with osteopenia. FRAX 10 year fracture risk is 0.7% for a hip fracture and 11% for a major osteoporotic fracture. Reviewed, Interpreted and Dictated by Ranjit Mcgee III, MD Transcribed by Stephanie Patton Authenticated and [facility]
--- NOTE | 2022-09-19 07:43 | MM_ITS ---
PROCEDURE INFORMATION: Exam: MG Bilateral Screening 3D Mammography Exam date and time: 09/19/2022 8:03 AM Age: 57 years old Clinical indication: Screening examination. A maternal cousin and a maternal aunt had breast cancer. TECHNIQUE: Imaging protocol: Bilateral Screening tomosynthesis and 2D mammography including computer-aided detection (CAD) when performed. COMPARISON: 1. MG DMSB DIG MAMM-SCREEN MARQUEZ 06/20/2016 9:57 AM 2. MG DMDXUR DIG MAMM-DX UNILATERAL-RT 02/10/2012 10:20 AM 3. MG DMDXUAVR DIG MAMM-DX UNIL ADD VIEWS-RT 06/23/2011 8:24 AM 4. MG DMSB DIGITAL MAMM-SCREEN BILATERAL 06/09/2011 8:45 AM FINDINGS: MAMMOGRAPHY: Breast composition: There are scattered areas of fibroglandular density. Mass: None. Architectural distortion: None. Calcifications: No suspicious calcifications. Asymmetric density: None. Skin thickening: None. Axillary adenopathy: None. IMPRESSION: No mammographic evidence of malignancy. Annual screening is recommended unless otherwise clinically indicated. ASSESSMENT: BI-RADS Category 1: Negative
== END ==
PROVIDERS: PCP Internal Medicine Adolescent Medicine; Visit Provider Internal Medicine Adolescent Medicine
DX: Z00.00 Encounter for general adult medical examination without abnormal findings (principal); Z12.31 Encounter for screening mammogram for malignant neoplasm of breast; Z78.0 Asymptomatic menopausal state; Z87.891 Personal history of nicotine dependence; Z12.2 Encounter for screening for malignant neoplasm of respiratory organs
CPT/HCPCS: 71271; 77063; 77067; 77080

== ENCOUNTER → 2023-10-09 07:43 | Outpatient (CLI) | payer BC, SELFPAY ==
--- NOTE | 2023-10-09 07:47 | CT_ITS ---
FINAL REPORT TECHNIQUE: Thin section axial images were obtained through the lungs using a low-dose technique per lung cancer screening protocol. Reconstruction images were obtained using the axial data. Exam was performed using dose reduction technique. CLINICAL HISTORY: H/O TOBACCO USE FORMER SMOKER, QUIT 5 YEARS AGO, 1PPD X40 YEARS WHEN SMOKING COMPARISON: 09/19/2022 FINDINGS: CTDLvol: 2.90 DLP: 109.94 Former smoker 40 pack year history Lungs: There is a stable 7 mm nodule along the right major fissure which is likely an intrafissural lymph node. There is a 4 mm nodule in the medial right upper lobe on image 24 which is stable. A right lower lobe 5 mm nodule on image 47 is stable. There is no new mass or nodule. There is no consolidation. Lymph nodes: No thoracic lymphadenopathy. Mediastinum: Heart size is normal. Pleura/pericardium: No pleural or pericardial effusion. Other: No acute abnormality in the upper abdomen. IMPRESSION: Stable pulmonary nodules. Lung RADS: 2 Recommendation: 12-month low-dose chest CT Reviewed, Interpreted and Dictated by Carolina Moralez MD Transcribed by Irma Lucero Authenticated and [facility]
--- NOTE | 2023-10-09 07:47 | MM_ITS ---
PROCEDURE INFORMATION: Exam: MG Bilateral Screening 3D Mammography Exam date and time: 10/09/2023 7:48 AM Age: 58 years old Clinical indication: Screening examination. A maternal cousin and a maternal aunt had breast cancer. TECHNIQUE: Imaging protocol: Bilateral Screening tomosynthesis and 2D mammography including computer-aided detection (CAD) when performed. COMPARISON: 1. MG MM DIG SCREENING MAMM BI W/CAD 09/19/2022 8:03 AM 2. MG DMSB DIG MAMM-SCREEN MARQUEZ 06/20/2016 9:57 AM 3. MG DMDXUR DIG MAMM-DX UNILATERAL-RT 02/10/2012 10:20 AM 4. MG DMDXUAVR DIG MAMM-DX UNIL ADD VIEWS-RT 06/23/2011 8:24 AM FINDINGS: MAMMOGRAPHY: Breast composition: There are scattered areas of fibroglandular density. Mass: None. Architectural distortion: None. Calcifications: No suspicious calcifications. Asymmetric density: None. Skin thickening: None. Axillary adenopathy: None. IMPRESSION: No mammographic evidence of malignancy. Annual screening is recommended unless otherwise clinically indicated. ASSESSMENT: BI-RADS Category 1: Negative
== END ==
PROVIDERS: PCP Internal Medicine Adolescent Medicine; Visit Provider Internal Medicine Adolescent Medicine
DX: Z00.00 Encounter for general adult medical examination without abnormal findings (principal); Z87.891 Personal history of nicotine dependence
CPT/HCPCS: 71271; 77063; 77067

== ENCOUNTER 2024-01-15 08:10 | Emergency (ER) | payer OTHER, SELFPAY ==
--- NOTE | 2024-01-15 08:19 | XR_ITS ---
FINAL REPORT CLINICAL HISTORY: epigastric/chest pain COMPARISON: 08/12/2019 FINDINGS: A single portable view of the chest was obtained. The heart size and pulmonary vascularity are within normal limits. The mediastinum is within normal limits. Mild bibasilar pulmonary opacities are favored to represent atelectasis. The bony thorax is intact. IMPRESSION: Mild bibasilar pulmonary opacities favor atelectasis. Reviewed, Interpreted and Dictated by Ranjit Mcgee III, MD Transcribed by Ros Merrill Authenticated and [facility] [place] [place]
--- NOTE | 2024-01-15 08:20 | CT_ITS ---
PROCEDURE INFORMATION: Exam: CT Abdomen And Pelvis With Contrast Exam date and time: 01/15/2024 9:11 AM Age: 58 years old Clinical indication: Abdominal pain; Generalized; Additional info: Gnawing epigastric pain radiating to back TECHNIQUE: Imaging protocol: Computed tomography of the abdomen and pelvis with contrast. Radiation optimization: All CT scans at this facility use at least one of these dose optimization techniques: automated exposure control; mA and/or kV adjustment per patient size (includes targeted exams where dose is matched to clinical indication); or iterative reconstruction. Contrast material: ISOVUE; Contrast volume: 75 ml; Contrast route: IV; COMPARISON: CT ABDOMEN PELVIS WO CON 12/01/2020 1:52 PM FINDINGS: Lungs: visualized portions of the lung bases normal other than mild atelectasis within the middle lobe.. Diaphragm: Elevation left hemidiaphragm Liver: Mild nodularity of the liver is present. Correlate regarding risk factors for hepatocellular disease. Gallbladder and bile ducts: Possible gallstones. Pancreas: Normal. No ductal dilation. Spleen: Normal. No splenomegaly. Adrenal glands: Normal. No mass. Kidneys and ureters: Question subtle masslike region midpole left kidney. Likely fortuitous imaging of the adjacent cortex. See image number 39 series 3. Follow-up ultrasound recommended. Subcentimeter cystic lesion left kidney superiorly. Stomach and bowel: Large amount of stool throughout the large bowel. Question mild thickening of the gastric antrum. Correlate. Followup. Appendix: The appendix is not visualized. Intraperitoneal space: No acute intra-abdominal process. No inflammatory process. No obstruction. No free fluid within the pelvis or within the dependent portions of the peritoneum. Vasculature: Calcification of the aorta. Flow within the superior mesenteric artery, celiac trunk and inferior mesenteric arteries. Lymph nodes: Unremarkable. No enlarged lymph nodes. Urinary bladder: Unremarkable as visualized. Reproductive: Prior hysterectomy. Bones/joints: osseous structures are unremarkable other than mild degenerative disk disease. No fracture. Soft tissues: Unremarkable. IMPRESSION: 1. No acute intra-abdominal process. No inflammatory process. No obstruction. 2. No free fluid within the pelvis or within the dependent portions of the peritoneum. 3. Large amount of stool throughout the large bowel. 4. Mild nodularity of the liver is present. Correlate regarding risk factors for hepatocellular disease. 5. Possible gallstones. 6. Question subtle masslike region midpole left kidney. Likely fortuitous imaging of the adjacent cortex. See image number 39 series 3. Follow-up ultrasound recommended. Non emergent. 7. Question mild thickening of the gastric antrum. Correlate. Followup. COMMENTS: Consistent with the [employer]'s Incidental Findings Committee white paper (J Am Magaly Radiol 2018): Any incidental renal lesion less than 1 cm or classified as too small to characterize, or any incidental cystic renal lesion characterized as simple-appearing, is likely benign. No follow-up imaging is recommended for these lesions per consensus recommendations based on imaging criteria.
--- NOTE | 2024-01-15 08:21 | HMH.EDGENADL ---
Discharge Plan Disposition Patient Disposition: Home, Self-Care Condition: Good Prescriptions Prescriptions: No Action losartan 25 MG tablet 100 mg PO DAILY cholecalciferol (vitamin D3) 1,000 UNIT capsule 1,000 unit PO DAILY magnesium oxide 500 MG capsule 500 mg PO DAILY ergocalciferol (vitamin D2) 50,000 UNIT capsule 50,000 units PO WEEKLY Patient Comments: TAKE 1 CAPSULE BY MOUTH ONCE A WEEK alprazolam 0.5 MG tablet extended release 24 hr 1 mg PO HS pantoprazole 40 MG tablet,delayed release (DR/EC) 40 mg PO BID 30 Days Qty: 60 1RF bisoprolol fumarate 10 MG Tablet 20 mg PO DAILY potassium chloride 20 MEQ Tablet 20 meq PO DAILY fluticasone propion-salmeterol [Advair Diskus] 28 PUFFS/50 MCG Inhaler 1 puff inhalation BID Patient Comments: INHALE 1 DOSE BY MOUTH TWICE DAILY. RINSE MOUTH AFTER USE atorvastatin 80 MG Tablet 80 mg PO HS Referrals Follow up/Referrals: Rosy Plummer MD [Physician] - See instructions (Dyspepsia, antral thickening, on pantoprazole) Adolfo Weber MD [Primary Care Provider] - See instructions Activity Restrictions/Add. Instructions Additional Instructions/Restrictions: You were evaluated in the ER today for abdominal pain. Increase your pantoprazole to twice daily as was previously prescribed. As discussed, avoid antacids that contain calcium since yours is already a little high. You have been referred to GI for follow-up. Make an appointment with them as soon as possible for reevaluation. As discussed, you had a few abnormalities on your CT scan including nodularity of the liver which you are already aware of. He also had questionable gallstones as discussed. With the slight abnormality in your left kidney, please discuss scheduling an outpatient ultrasound for reevaluation of the kidney with your primary care physician. Make an appointment with your primary care physician for reevaluation as soon as possible. Return to the ER with new, worsening, or otherwise concerning symptoms. Clinical Impressions Clinical Impression: Abdominal pain, epigastric, Hypercalcemia Instructions Patient Instructions: DI for Acute Abdominal Pain Discharge ED Provider: Almita Giordano General Adult HPI General Chief complaint: Abdominal Pain Stated complaint: ABD Pain Time Seen by Provider: 01/15/24 08:19 History of Present Illness HPI narrative: This 58-year-old female with a history of dyspepsia, hypomagnesemia, hypokalemia presents to the ER with 1 month of epigastric abdominal pain. Patient states she has a history of dyspepsia and had been on twice a day omeprazole. She states she decreased her dose to once a day over a year ago because she was doing well. She states in the last months she has been having gnawing epigastric pain and her primary care physician placed her on Levaquin and steroids empirically to cover possible diverticulitis. Patient states she has not had any diarrhea, no bloody or black stools. She will have occasional nausea but no vomiting. Patient states they are trying to get prior authorization for CT abdomen pelvis but that has not yet happened and her pain continues to be persistent and worsening. She states it is now radiating to her mid back as well which is new. She does state it improves with eating. Patient takes a statin but does not have a history of [place] or stents. No fevers, no shortness of breath, no dysuria. Related Data Home Medications Medication Instructions Recorded Confirmed atorvastatin 80 mg tablet 80 mg PO HS Cholesterol 03/16/19 12/02/20 bisoprolol fumarate 10 mg tablet 20 mg PO DAILY Hypertension 03/16/19 12/02/20 fluticasone 250 mcg-salmeterol 50 1 puff inhalation BID COPD 03/16/19 12/02/20 mcg/dose blistr powdr for inhalation (Advair Diskus) potassium chloride 20 mEq 20 meq PO DAILY Supplement 03/16/19 12/02/20 tablet,extended release(part/cryst) alprazolam 0.5 mg tablet,extended 1 mg PO HS SLEEP 12/01/20 12/02/20 release 24 hr cholecalciferol (vitamin D3) 25 1,000 unit PO DAILY Supplement 12/01/20 12/02/20 mcg (1,000 unit) capsule ergocalciferol (vitamin D2) 1,250 50,000 units PO WEEKLY Supplement 12/01/20 12/02/20 mcg (50,000 unit) capsule losartan 25 mg tablet 100 mg PO DAILY High blood pressure 12/01/20 12/02/20 magnesium oxide 500 mg capsule 500 mg PO DAILY Supplement 12/01/20 12/02/20 Previous Rx's Medication Instructions Recorded pantoprazole 40 mg tablet,delayed 40 mg PO BID 30 days #60 tabs 12/02/20 release Allergies Allergy/AdvReac Type Severity Reaction Status Date / Time codeine AdvReac Verified 03/16/19 16:52 [facility] Disclaimer: The information contained in this section may have been updated after the patient was seen, as this information can be updated by other users. Social History Smoking Status: Former smoker tobacco type: cigarettes alcohol intake: current current occupational status: employed Travel in the last 8 weeks: None household members: spouse housing: house current occupation: TEACHER current occupational exposures/hazards: No caffeine: Yes ROS Obtained: Yes All systems reviewed & no additional complaints except as documented Constitutional Constitutional: Denies chills, Denies fever(s), Denies headache(s) and Denies weakness Eyes Eyes: Denies change in vision ENT Ears, Nose, Mouth, and Throat: Denies dizziness, Denies headache(s), Denies nasal congestion and Denies sore throat Cardiovascular Cardiovascular: Denies chest pain, Denies dyspnea and Denies leg edema Respiratory Respiratory: Denies cough and Denies dyspnea Gastrointestinal Gastrointestingal: Reports abdominal pain and nausea; Denies constipation, diarrhea or vomiting Genitourinary Female Genitourinary: Denies dysuria Musculoskeletal Musculoskeletal: Denies arthralgias, Denies myalgias, Denies numbness and Denies tingling Integumentary/Breasts Skin/Breast: Denies change in pigmentation Neurologic Neurologic: Denies dizziness, Denies headache(s), Denies numbness, Denies tingling and Denies weakness Physical Exam General General appearance: alert and in no apparent distress Head Head exam: atraumatic and normocephalic Eye Eye exam: Present PERRL and EOMI ENT ENT exam: Present mucous membranes moist Neck Neck exam: Present normal inspection and full ROM Chest Chest inspection: Present symmetric chest wall rise Respiratory Respiratory exam: Present normal lung sounds bilaterally; Absent respiratory distress or stridor Cardiovascular Cardiovascular exam: Present regular rate and normal rhythm Abdominal Exam Abdominal exam: Present soft and tenderness (Epigastric); Absent distention, guarding or rebound Extremities Exam Extremities exam: Present full ROM Back Exam Back exam: Absent CVA tenderness (R), CVA tenderness (L) or paraspinal tenderness Neurological Exam Neurological exam: Present alert and oriented X3; Absent motor sensory deficit Psychiatric Psychiatric exam: Present normal affect and normal mood Skin Skin exam: Present warm and dry Medical Decision Making Medical Records Medical records reviewed: Yes I reviewed the patient's medical records. Carlos Inquiry Pt receiving controlled substance: No Vital Signs: 01/15/24 08:23 01/15/24 09:43 Temperature 98.3 F Temperature Source Oral Pulse Rate 58 L Pulse Rate [Left] 69 Respiratory Rate 16 Blood Pressure 139/89 Blood Pressure [Right Arm] 152/105 H Blood Pressure Mean 105 Blood Pressure Mean [Right Arm] 120 Blood Pressure Source [Right Arm] Automatic Cuff Blood Pressure Position [Right Arm] Sitting 02 Sat by Pulse Oximetry 98 95 Oxygen Delivery Method Room Air Lab Data Lab Results 01/15/24 08:21: WBC 11.5 H, RBC 5.22, Hgb 15.6, Hct 45.4, MCV 87.0, MCH 29.9, MCHC 34.3, RDW 13.6, Plt Count 477 H, MPV 8.2, Neut % (Auto) 59.8, Lymph % (Auto) 31.7, [place] % (Auto) 6.5, Eos % (Auto) 1.2, Baso % (Auto) 0.7, Neut # (Auto) 6.9, Lymph # (Auto) 3.6, [place] # (Auto) 0.8, Eos # (Auto) 0.1, Baso # (Auto) 0.1, Sodium 140, Potassium 3.5, Chloride 103, Carbon Dioxide 33 H, Anion Gap 7.5, BUN 19 H, Creatinine 0.90, Estimated Creat Clear 119, Estimated GFR 64, Est GFR ( Amer) 77, Glucose 115 H, Lactate 1.2, Calcium 10.3 H, Magnesium 2.0, Total Bilirubin 1.1, AST 37 H, ALT 44, Alkaline Phosphatase 108, Troponin I < 0.01, Total Protein 8.1, Albumin 4.5, Globulin 3.6 H, Albumin/Globulin Ratio 1.3, Lipase 105 01/15/24 08:52: Urine Color Yellow, Urine Appearance Sl cloudy, Urine pH 5.5, Ur Specific [place] 1.025, Urine Protein Negative, Urine Glucose (UA) Negative, Urine Ketones Negative, Urine Blood Trace-i, Urine Nitrate Negative, Urine Bilirubin Negative, Urine Urobilinogen 0.2, Ur Leukocyte Esterase 1+ A, Urine RBC Occasional, Urine WBC 10-20, Ur Squamous Epith Cells 3-5, Urine Bacteria 1+ 02/16/24 08:21 01/15/24 08:21 Orders (Tests/Meds): ED MEDICATIONS Discontinued Medications Generic Name Dose Route Start Last Admin Trade Name Norma PRN Reason Stop Dose Admin Belladonna Alkaloids 60 ml 01/15/24 08:20 01/15/24 08:36 Belladonna Alkaloids 60 Ml Ml PO 01/15/24 08:21 60 ml ONCE ONE Administration Lactated Ringer's 500 mls @ 999 mls/hr 01/15/24 09:14 01/15/24 09:25 Lactated Ringer's 500ml IV 01/15/24 09:44 999 mls/hr .Q31M ONE Administration Iopamidol 75 ml 01/15/24 09:13 01/15/24 09:13 Iopamidol-370 (76%);100ml Bottle IV 01/15/24 09:14 75 ml ONCE ONE Administration Sodium Chloride 10 ml 01/15/24 09:13 01/15/24 09:13 Sodium Chloride 0.9% 10ml Syr (Rad Only) IV 01/15/24 09:14 10 ml ONCE ONE Administration ORDERS Category Date Time Status CT abdomen pelvis w con Stat Cat Scan 01/15/24 08:20 Completed CXR --portable [XR chest portable] Stat Exams 01/15/24 08:19 Taken CBC w/Auto Diff [Complete Blood Count Auto Diff] Stat Lab 01/15/24 08:21 Received CMP [Comprehensive Metabolic Panel] Stat Lab 01/15/24 08:21 Completed Lactic Acid Stat Lab 01/15/24 08:21 Completed Lipase Stat Lab 01/15/24 08:21 Completed Magnesium Stat Lab 01/15/24 08:21 Completed Trop I [Troponin I] Stat Lab 01/15/24 08:21 Completed Troponin I Q3H Lab 01/15/24 11:30 Ordered Troponin I Q3H Lab 01/15/24 14:30 Ordered Urinalysis and Microscopic Stat Lab 01/15/24 08:52 Completed Urine Culture Stat Micro 01/15/24 08:52 Received ECG Request Stat Y 01/15/24 08:19 Ordered Medical Decision Narrative: In summary, this 58year old female presents to the emergency department today with concerns of gnawing epigastric abdominal pain now radiating to the back after having pain for 1 month. On initial evaluation patient is hemodynamically stable, afebrile, abdominal exam notable from epigastric tenderness without rebound or guarding, nonacute abdomen. Differential diagnosis includes but is not limited to pancreatitis, lactic acidosis, bowel obstruction, enteritis, GI bleed, pyelonephritis, cholecystitis, cholelithiasis, nephrolithiasis, ACS, viral syndrome, medication noncompliance, given patient's medical history of electrolyte derangements which are comorbidities of current condition, she will be evaluated for electrolyte abnormalities today. Given patient's symptoms improved with eating, the possibility of peptic ulcer disease cannot be ruled out. Based on these concerns, I ordered basic labs, magnesium, lipase, lactic, CT imaging, cardiac workup. Review of recent records demonstrates patient had screening mammogram in September 2023 which did not demonstrate any findings that would be concerning for malignancy. ECG personally interpreted demonstrates normal sinus rhythm, rate 60, borderline left axis deviation, no interval abnormalities, no STEMI. Patient received IV fluids, GI cocktail for treatment. Labs personally reviewed demonstrate CMP with trace prerenal azotemia so patient is receiving IV fluids, potassium and magnesium as well as other electrolytes are normal except for trace hyperkalemia at 10.3, nonactionable at this time, initial troponin undetectably low at less than 0.01, given patient's duration of symptoms I do not believe repeat troponin is necessary. Lipase normal at 105 reassuring against pancreatitis, CBC with trace leukocytosis, no anemia, mild thrombocythemia, nonspecific and nonactionable. UA with 10-20 WBCs but contaminated with squamous cells. Bacteria is present without nitrates. Given patient does not have any dysuria or lower abdominal pain, will not treat for urinary tract infection at this time. XR personally interpreted demonstrates likely faint pulmonary edema versus atelectasis at the bases, no lobar infiltrate. See radiology read for final interpretation. CT imaging personally interpreted demonstrate no obvious epigastric mass, no findings of bowel obstruction, stool present throughout the colon. See radiology read for final interpretation which is notable for questionable masslike structure on the kidney as well as mild thickening of the gastric antrum which would correlate with patient's symptoms, possible hepatocellular disease and gallstones. I discussed incidental findings with the patient, she was already aware of fatty liver disease and I encouraged her to have outpatient ultrasound of the kidney for follow-up. On reassessment patient states she has had improvement of symptoms after receiving GI cocktail. She still states that she has mild generalized abdominal discomfort but the epigastric pain has improved. Patient's prescriptions were reviewed and I recommended that the patient continue taking her PPI twice daily as previously prescribed since she had reduced it to once daily herself. I provided referral to GI for follow-up. Patient is appropriate for discharge at this time. Patient was given instructions on symptomatic management, follow up instructions, and return precautions for the emergency department. Patient indicated understanding and was discharged in stable condition. Critical Care Critical Care Time Critical Care Time: No
[2024-01-15 08:23] VITALS: BP 152/105; PULSE 69; RESP 16; TEMP 36.8; O2SAT 98; BMI 34.8
--- NOTE | 2024-01-15 08:25 | PC.NURSE ---
xray at bs
--- NOTE | 2024-01-15 08:31 | ECG_ITS ---
APPROVED REPORT Exam: Resting ECG HR:60 bpm ECG Measurements Heart Rate 60 AXES KS 164 P 43 QRSd 106 QRS -21 QT 392 T 1 QTc 393 Conclusion SINUS RHYTHM LEFT AXIS DEVIATION [QRS AXIS < -20] MINIMAL ST DEPRESSION [0.025+ mV ST DEPRESSION] BORDERLINE ECG UNCONFIRMED REPORT Electronically signed by : Adolfo Weber MD 01/16/2024 08:19:41
[2024-01-15] MEDS: BELLADONNA ALKALOIDS 60 ML ML PO (08:36)
[2024-01-15 08:48] LABS: Chloride 103 mmol/L (98-107); Potassium 3.5 mmoL/L (3.5-5.1); Sodium 140 mmol/L (136-145)
[2024-01-15 08:50] LABS: Blood Urea Nitrogen 19 mg/dl (7-17); Creatinine Clearance Estimated 119 mL/min (50-200); Estimated Glomerular Filt Rate 64 ml/min (>60); GFR (African American) 77 ML/MIN (>60)
[2024-01-15 08:51] LABS: Alanine Aminotransferase 44 U/L (12-78); Albumin Level 4.5 g/dl (3.5-5.0); Albumin/Globulin Ratio 1.3 (1.1-1.8); Alkaline Phosphatase 108 U/L (38-126); Anion Gap 7.5 mEq/L (5-15); Aspartate Amino Transferase 37 U/L (14-36); Bilirubin,Total 1.1 mg/dl (0.2-1.3); Calcium 10.3 mg/dl (8.4-10.2); Carbon Dioxide 33 mmol/L (22.0-30.0); Globulin 3.6 g/dL (1.3-3.2); Glucose 115 mg/dl (74-100); Lactic Acid 1.2 mmol/L (0.7-2.1); Lipase 105 U/L (23-300); Total Protein,Serum 8.1 g/dl (6.3-8.2)
[2024-01-15 09:08] LABS: Troponin I < 0.01 ng/ml (0.00-0.034)
[2024-01-15] MEDS: IOPAMIDOL-370 (76%);100ML BOTTLE 75 ML IV (09:13)
[2024-01-15] MEDS: SODIUM CHLORIDE 0.9% 10ML SYR (RAD ONLY) 10 ML IV (09:13)
[2024-01-15] MEDS: RINGERS SOLUTION,LACTATED 500 ML 999 ML IV (09:25)
[2024-01-15 09:35] LABS: Microscopic, Urine URINE MICROSCOPIC (MICROSCOPIC)
[2024-01-15 09:39] LABS: Appearance,Urine SL CLOUDY (Clear); Bilirubin,Urine Negative (Negative); Blood, Urine TRACE-I (Negative); Color,Urine YELLOW (Yellow); Glucose,Urine (UA) Negative (Negative); Ketones,Urine Negative (Negative); Leukocyte Esterase,Urine 1+ (Negative); Nitrate,Urine Negative (Negative); PH,Urine 5.5 (5.0-8.5); Protein,Urine Negative (Negative); Specific Gravity, Urine 1.025 (1.005-1.030); Urobilinogen,Urine 0.2 EU/dl (0.2)
[2024-01-15 09:43] VITALS: BP 139/89; PULSE 58; O2SAT 95
--- NOTE | 2024-01-15 09:46 | PC.NURSE ---
rounded on pt states she was fine no needs at this time,call light placed back at pt bs
[2024-01-15 09:56] LABS: Bacteria,Urine 1+ /lpf; RBC,Urine Occasional #/hpf (0-3)
[2024-01-15 10:12] LABS: Basophils # 0.1 K/mm3 (0-0.2); Basophils % 0.7 % (0.1-2.0); Eosinophils # 0.1 K/mm3 (0.0-0.4); Eosinophils % 1.2 % (0.1-12.0); Hematocrit 45.4 % (37.0-47.0); Hemoglobin 15.6 g/dL (12.2-16.2); Lymphocytes # 3.6 K/mm3 (0.7-4.5); Lymphocytes % 31.7 % (10-50); Mean Corpuscular HGB Conc 34.3 g/dL (31.8-35.4); Mean Corpuscular Hemoglobin 29.9 pg (27.0-31.2); Mean Platelet Volume 8.2 fl (7.4-10.4); Monocytes # 0.8 K/mm3 (0.1-1.0); Monocytes % 6.5 % (1.7-9.3); Neutrophils # 6.9 K/mm3 (1.8-7.8); Neutrophils % 59.8 % (37.0-80.0); Platelet Count 477 K/mm3 (142-424); Red Blood Count 5.22 M/mm3 (4.20-5.40); Red Cell Distribution Width 13.6 % (11.5-17.5); White Blood Count 11.5 K/mm3 (4.8-10.8)
[2024-01-15 10:53] VITALS: BP 139/89; PULSE 58; RESP 18; TEMP 36.8; O2SAT 95
== END 2024-01-15 10:54 | disposition home or self-care (01) ==
PROVIDERS: Emergency Provider Emergency Medicine; PCP Internal Medicine Adolescent Medicine
DX: R10.13 Epigastric pain (principal); E83.52 Hypercalcemia
CPT/HCPCS: 71045; 74177; 80053; 81001; 83605; 83690; 83735; 84484; 85025; 87086; 93005; 99285; Q9967

== ENCOUNTER 2024-01-28 06:46 | Outpatient (CLI) | payer OTHER, SELFPAY ==
--- NOTE | 2024-01-28 | US_ITS ---
FINAL REPORT TECHNIQUE: Sonographic images of the abdomen were obtained in all four quadrants. CLINICAL HISTORY: ? renal cyst FINDINGS: LIVER: There is fatty infiltration of the liver.. No focal hepatic lesion or intrahepatic biliary dilatation. GALLBLADDER: No gallstones. No pericholecystic fluid collection or gallbladder wall thickening. The common duct measures mm. This is within normal limits for age. PANCREAS: Unremarkable. RIGHT KIDNEY: 11.1 cm. No hydronephrosis, mass or stone. LEFT KIDNEY: 11.1 cm. No hydronephrosis, cyst or stone. SPLEEN: 10.4 cm. No focal splenic lesion. AORTA/IVC: No abdominal aortic aneurysm. Visualized IVC within normal limits. OTHER: No ascites. IMPRESSION: Fatty liver. No left renal cyst identified. Reviewed, Interpreted and Dictated by Carolina Moralez MD Transcribed by Gabi Tripp Authenticated and [facility]
== END 2024-01-28 23:59 ==
LOC: RAD 06:47
PROVIDERS: PCP Internal Medicine Adolescent Medicine; Visit Provider Internal Medicine Adolescent Medicine
DX: N28.1 Cyst of kidney, acquired (principal)
CPT/HCPCS: 76700

== ENCOUNTER 2024-06-28 10:33 | Emergency (ER) | payer OTHER, SELFPAY ==
--- NOTE | 2024-06-28 10:32 | ECG_ITS ---
APPROVED REPORT Exam: Resting ECG HR:70 bpm ECG Measurements Heart Rate 70 AXES SC 158 P 70 QRSd 97 QRS -20 QT 360 T -6 QTc 381 Conclusion SINUS RHYTHM NORMAL ECG Electronically signed by : FRANCO MEZA, 06/29/2024 07:30:49
[2024-06-28 10:34] VITALS: BP 170/86; PULSE 79; RESP 16; TEMP 36.8; O2SAT 97; BMI 32.1
[2024-06-28 11:01] VITALS: BP 130/63; PULSE 59; RESP 10; O2SAT 92
[2024-06-28 11:01] LABS: Basophils # 0.1 K/mm3 (0-0.2); Basophils % 1.2 % (0.1-2.0); Eosinophils # 0.5 K/mm3 (0.0-0.4); Eosinophils % 5.1 % (0.1-12.0); Hematocrit 40.7 % (37.0-47.0); Hemoglobin 14.4 g/dL (12.2-16.2); Lymphocytes # 2.3 K/mm3 (0.7-4.5); Lymphocytes % 25.8 % (10-50); Mean Corpuscular HGB Conc 35.5 g/dL (31.8-35.4); Mean Corpuscular Hemoglobin 30.7 pg (27.0-31.2); Mean Corpuscular Volume 86.4 fl (81-99); Mean Platelet Volume 8.5 fl (7.4-10.4); Monocytes # 0.5 K/mm3 (0.1-1.0); Monocytes % 5.7 % (1.7-9.3); Neutrophils # 5.5 K/mm3 (1.8-7.8); Neutrophils % 62.1 % (37.0-80.0); Platelet Count 321 K/mm3 (142-424); Red Blood Count 4.71 M/mm3 (4.20-5.40); Red Cell Distribution Width 14.7 % (11.5-17.5); White Blood Count 8.8 K/mm3 (4.8-10.8)
[2024-06-28 11:03] LABS: Albumin Level 4.5 g/dl (3.5-5.0); Chloride 107 mmol/L (98-107); Potassium 3.6 mmoL/L (3.5-5.1); Sodium 144 mmol/L (136-145)
[2024-06-28 11:06] LABS: Alanine Aminotransferase 24 U/L (12-78); Albumin/Globulin Ratio 1.3 (1.1-1.8); Alkaline Phosphatase 115 U/L (38-126); Anion Gap 12.6 mEq/L (5-15); Aspartate Amino Transferase 29 U/L (14-36); Bilirubin,Total 0.8 mg/dl (0.2-1.3); Blood Urea Nitrogen 11 mg/dl (7-17); Calcium 10.4 mg/dl (8.4-10.2); Carbon Dioxide 28 mmol/L (22.0-30.0); Creatinine Clearance Estimated 97 mL/min (50-200); Estimated Glomerular Filt Rate 64 ml/min (>60); GFR (African American) 77 ML/MIN (>60); Globulin 3.5 g/dL (1.3-3.2); Glucose 116 mg/dl (74-100); Magnesium 1.6 mg/dl (1.6-2.3)
--- NOTE | 2024-06-28 11:06 | HMH.EDCP ---
Discharge Plan Disposition Patient Disposition: Home, Self-Care Condition: Good Prescriptions Prescriptions: No Action losartan 25 MG tablet 100 mg PO DAILY cholecalciferol (vitamin D3) 1,000 UNIT capsule 1,000 unit PO DAILY magnesium oxide 500 MG capsule 500 mg PO DAILY ergocalciferol (vitamin D2) 50,000 UNIT capsule 50,000 units PO WEEKLY Patient Comments: TAKE 1 CAPSULE BY MOUTH ONCE A WEEK alprazolam 0.5 MG tablet extended release 24 hr 1 mg PO HS pantoprazole 40 MG tablet,delayed release (DR/EC) 40 mg PO BID 30 Days Qty: 60 1RF bisoprolol fumarate 10 MG Tablet 20 mg PO DAILY potassium chloride 20 MEQ Tablet 20 meq PO DAILY fluticasone propion-salmeterol [Advair Diskus] 28 PUFFS/50 MCG Inhaler 1 puff inhalation BID Patient Comments: INHALE 1 DOSE BY MOUTH TWICE DAILY. RINSE MOUTH AFTER USE atorvastatin 80 MG Tablet 80 mg PO HS Referrals Follow up/Referrals: Gutierrez Yeager MD [Staff Physician] - See instructions () Activity Restrictions/Add. Instructions Additional Instructions/Restrictions: You were evaluated in the ER. You are appropriate for discharge at this time. Make an appointment with your primary care physician for reevaluation. Also follow-up with cardiology for reevaluation and to discuss your medication side effects. Return to the ER with new, worsening, or otherwise concerning symptoms. Clinical Impressions Clinical Impression: Chest pain Print Language Print Language: [place] Discharge ED Provider: Almita Giordano General Chief Complaint: Chest Pain Stated Complaint: chest pain Time Seen by Provider: 06/28/24 10:40 Mode of Arrival: Ambulatory Source of Information: Patient Limitations: No Limitations Description of Symptoms (Recalled from ER Triage Doc. by RN): Patient complaint of chest discomfort since Thursday. States that she saw Cardiology on in regards to her Bisoprolol and they changed the dose. Thursday she began to have chest pressure and SOB. Today she began to have chest discomfort and sweaty palms and came to the ER to make sure it wasn't her heart. History of Present Illness HPI narrative: 59-year-old female presents to the ER for concerns of chest discomfort. Patient has a protracted history of chest and epigastric pain, she had a recent scope with chronic gastritis. She states this discomfort is different than her previous epigastric pain. Patient has lost weight and was being weaned off her bisoprolol, approximately 9 days ago she had a spike in her heart rate and was started back on the bisoprolol but then became bradycardic at a dose of 2.5 mg. She was guided by her primary care physician to decrease the dose to 1.25 which she has tolerated but she has continued to have chest pressure in the left side of the chest since and it worsened on Thursday. She has felt slightly lightheaded if she moves too quickly and states she occasionally gets short of breath when walking the dog but nothing seems to specifically exacerbate or palliate the pain. Today she had chest discomfort and sweaty palms and came to the ER to rule out cardiac abnormality. Related Data Home Medications ?Medication ?Instructions ?Recorded ?Confirmed atorvastatin 80 mg tablet 80 mg PO HS Cholesterol 03/16/19 12/02/20 bisoprolol fumarate 10 mg tablet 20 mg PO DAILY Hypertension 03/16/19 12/02/20 fluticasone 250 mcg-salmeterol 50 1 puff inhalation BID COPD 03/16/19 12/02/20 mcg/dose blistr powdr for inhalation (Advair Diskus) potassium chloride 20 mEq 20 meq PO DAILY Supplement 03/16/19 12/02/20 tablet,extended release(part/cryst) alprazolam 0.5 mg tablet,extended 1 mg PO HS SLEEP 12/01/20 12/02/20 release 24 hr cholecalciferol (vitamin D3) 25 1,000 unit PO DAILY Supplement 12/01/20 12/02/20 mcg (1,000 unit) capsule ergocalciferol (vitamin D2) 1,250 50,000 units PO WEEKLY Supplement 12/01/20 12/02/20 mcg (50,000 unit) capsule losartan 25 mg tablet 100 mg PO DAILY High blood pressure 12/01/20 12/02/20 magnesium oxide 500 mg capsule 500 mg PO DAILY Supplement 12/01/20 12/02/20 Previous Rx's ?Medication ?Instructions ?Recorded pantoprazole 40 mg tablet,delayed 40 mg PO BID 30 days #60 tabs 12/02/20 release Allergies Allergy/AdvReac Type Severity Reaction Status Date / Time codeine AdvReac Verified 03/16/19 16:52 [facility] Disclaimer: The information contained in this section may have been updated after the patient was seen, as this information can be updated by other users. Social History Smoking Status: Never smoker alcohol intake: current alcohol intake frequency: holidays/special occasions only current occupational status: employed Travel in the last 8 weeks: None household members: spouse housing: house current occupation: TEACHER current occupational exposures/hazards: No caffeine: Yes ROS Obtained: Yes All systems reviewed & no additional complaints except as documented Constitutional Constitutional: Denies chills, Denies fever(s), Denies headache(s) and Denies weakness Eyes Eyes: Denies change in vision ENT Ears, Nose, Mouth, and Throat: Denies dizziness, Denies headache(s), Denies nasal congestion and Denies sore throat Cardiovascular Cardiovascular: Reports chest pain, Reports dyspnea and Denies leg edema Respiratory Respiratory: Denies cough and Reports dyspnea Gastrointestinal Gastrointestingal: Denies constipation, diarrhea, nausea or vomiting Genitourinary Female Genitourinary: Denies dysuria Musculoskeletal Musculoskeletal: Denies arthralgias, Denies myalgias, Denies numbness and Denies tingling Integumentary/Breasts Skin/Breast: Denies change in pigmentation Neurologic Neurologic: Denies dizziness, Denies headache(s), Denies numbness, Denies tingling and Denies weakness Physical Exam General General appearance: alert and in no apparent distress Head Head exam: atraumatic and normocephalic Eye Eye exam: Present PERRL and EOMI ENT ENT exam: Present mucous membranes moist Neck Neck exam: Present normal inspection and full ROM Chest Chest inspection: Present symmetric chest wall rise Respiratory Respiratory exam: Present normal lung sounds bilaterally; Absent respiratory distress, wheezes or stridor Cardiovascular Cardiovascular exam: Present regular rate and normal rhythm Abdominal Exam Abdominal exam: Present soft; Absent distention or tenderness Extremities Exam Extremities exam: Present full ROM and edema Neurological Exam Neurological exam: Present alert and oriented X3; Absent motor sensory deficit Psychiatric Psychiatric exam: Present normal affect and normal mood Skin Skin exam: Present warm and dry HEART Score HEART Score HEART Score assessment performed?: Yes History (anamnesis): Slightly suspicious ECG: Non-specific disturbance Age: 45-65 years Risk factors: 1-2 risk factors Troponin: </= normal limit HEART Score: 3 Critical Care Critical Care Time Critical Care Time: No Medical Decision Making Medical Records Medical records reviewed: Yes I reviewed the patient's medical records. MR Comment: Patient had admission in 2020 for hypertension and electrolyte abnormalities. She has been on electrolyte supplementation since that time. Carlos Inquiry Pt receiving controlled substance: No Vital Signs Vital Signs: 06/28/24 10:34 06/28/24 11:01 06/28/24 11:31 Temperature 98.2 F Temperature Source Oral Pulse Rate 59 L 60 Pulse Rate [Radial] 79 Respiratory Rate 16 10 L Blood Pressure 130/63 115/61 Blood Pressure [Right Arm] 170/86 H Blood Pressure Mean 93 Blood Pressure Mean [Right Arm] 114 Blood Pressure Source [Right Arm] Automatic Cuff Blood Pressure Position [Right Arm] Sitting 02 Sat by Pulse Oximetry 97 92 L 97 Oxygen Delivery Method Room Air Room Air 06/28/24 12:00 06/28/24 12:30 06/28/24 13:05 Temperature 98.2 F Temperature Source Oral Pulse Rate 57 L 62 60 Pulse Rate [Radial] Respiratory Rate 14 14 17 Blood Pressure 125/84 123/84 120/84 Blood Pressure [Right Arm] Blood Pressure Mean Blood Pressure Mean [Right Arm] Blood Pressure Source [Right Arm] Blood Pressure Position [Right Arm] 02 Sat by Pulse Oximetry 98 93 L Oxygen Delivery Method Room Air Room Air Room Air Lab Data Labs: Lab Results 06/28/24 10:40: WBC 8.8, RBC 4.71, Hgb 14.4, Hct 40.7, MCV 86.4, MCH 30.7, MCHC 35.5 H, RDW 14.7, Plt Count 321, MPV 8.5, Neut % (Auto) 62.1, Lymph % (Auto) 25.8, [place] % (Auto) 5.7, Eos % (Auto) 5.1, Baso % (Auto) 1.2, Neut # (Auto) 5.5, Lymph # (Auto) 2.3, [place] # (Auto) 0.5, Eos # (Auto) 0.5 H, Baso # (Auto) 0.1, Sodium 144, Potassium 3.6, Chloride 107, Carbon Dioxide 28, Anion Gap 12.6, BUN 11, Creatinine 0.90, Estimated Creat Clear 97, Estimated GFR 64, Est GFR ( Amer) 77, Glucose 116 H, Calcium 10.4 H, Magnesium 1.6, Total Bilirubin 0.8, AST 29, ALT 24, Alkaline Phosphatase 115, Troponin I < 0.01, Total Protein 8.0, Albumin 4.5, Globulin 3.5 H, Albumin/Globulin Ratio 1.3 06/28/24 11:08: PT 11.0, INR 0.98, D-Dimer 0.54 H 06/28/24 10:40 06/28/24 10:40 Response Orders (Tests/Meds): ORDERS Category Date Time Status CXR --portable [XR chest portable] Stat Exams 06/28/24 12:35 Completed CBC w/Auto Diff [Complete Blood Count Auto Diff] Stat Lab 06/28/24 10:40 Completed CMP [Comprehensive Metabolic Panel] Stat Lab 06/28/24 10:40 Completed D-Dimer Stat Lab 06/28/24 11:08 Completed Magnesium Stat Lab 06/28/24 10:40 Completed PT INR [Prothrombin Time INR] Stat Lab 06/28/24 11:08 Completed Trop I [Troponin I] Stat Lab 06/28/24 10:40 Completed MDM Narrative Medical Decision Narrative: In summary, this 59-year-old female presents to the emergency department today with chest discomfort, mild intermittent shortness of breath. On initial evaluation patient is hemodynamically stable, afebrile, cardiopulmonary exam is reassuring. Differential diagnosis includes but is not limited to ACS, PE, electrolyte abnormality, medication side effect. Based on these concerns, I ordered cardiac workup, D-dimer, serum labs. ECG personally interpreted demonstrates normal sinus rhythm, rate 70, normal axis, normal AL and QTc, no STEMI, no significant changes from ECG performed in December which I reviewed. Patient received [] for treatment. Labs personally reviewed demonstrate CBC with no leukocytosis or anemia, PT/INR normal, D-dimer slightly elevated at 0.54, however when adjusted for age this is within normal limits and patient is very low risk of VTE, no further action necessary regarding D-dimer, CMP with trace hypercalcemia consistent with prior, initial troponin undetectably low at less than 0.01, given duration of symptoms and reassuring ECG, patient does not require serial troponin and this is very reassuring. Chest x-ray was interpreted does not demonstrate any acute intrathoracic abnormality. See radiology read for final interpretation. Patient is appropriate for discharge at this time. She continues to be stable and has not had any changes on the monitor. Her workup is very reassuring. I believe her symptoms are related to medication side effect. I have referred her to cardiology due to her history of heart rate variability and now increasing sensitivity to beta-blockers. Patient was given instructions on symptomatic management, follow up instructions, and return precautions for the emergency department. Patient indicated understanding and was discharged in stable condition.
[2024-06-28 11:19] LABS: Troponin I < 0.01 ng/ml (0.00-0.034)
[2024-06-28 11:31] VITALS: BP 115/61; PULSE 60; O2SAT 97
[2024-06-28 11:32] LABS: INR 0.98 (0.9-1.1)
[2024-06-28 12:00] VITALS: BP 125/84; PULSE 57; RESP 14; O2SAT 98
--- NOTE | 2024-06-28 12:17 | PC.NURSE ---
Called lab to check on the time remaining on d-dimer results, Kalei states 12 min left as they had to re-run the other coag studies with the same tube .Dr. Giordano notified of this.
[2024-06-28 12:25] LABS: D-Dimer 0.54 ug/mL (0.0-0.5)
[2024-06-28 12:30] VITALS: BP 123/84; PULSE 62; RESP 14; O2SAT 93
--- NOTE | 2024-06-28 12:35 | XR_ITS ---
FINAL REPORT CLINICAL HISTORY: Nonspecific chest pain COMPARISON: 01/15/2024 FINDINGS: The heart size is normal. The mediastinum is normal. The lungs are underinflated. Right lower lobe atelectasis is increased compared to the prior study. There are no pleural effusions. There is no pneumothorax. There is no osseous abnormality. IMPRESSION: Increased right lower lobe atelectasis. Reviewed, Interpreted and Dictated by Alberto Reina MD Transcribed by Ros Merrill Authenticated and [facility]
[2024-06-28 13:05] VITALS: BP 120/84; PULSE 60; RESP 17; TEMP 36.8; O2SAT 98
== END 2024-06-28 13:06 | disposition home or self-care (01) ==
PROVIDERS: Emergency Provider Emergency Medicine
DX: R07.9 Chest pain, unspecified (principal); R06.02 Shortness of breath; R42 Dizziness and giddiness; I10 Essential (primary) hypertension
CPT/HCPCS: 71045; 80053; 83735; 84484; 85025; 85378; 85610; 93005; 99284

== ENCOUNTER 2024-07-04 10:39 | Outpatient (CLI) | payer OTHER, SELFPAY | END 2024-07-04 23:59 | disposition home or self-care (01) | LOC: RT 10:41 | PROVIDERS: PCP Internal Medicine Adolescent Medicine; Visit Provider Obstetrics & Gynecology | DX: R00.2 Palpitations (principal); R07.9 Chest pain, unspecified; I10 Essential (primary) hypertension | CPT/HCPCS: 93270 ==

== ENCOUNTER 2024-08-04 10:10 | Outpatient (CLI) | payer OTHER, SELFPAY ==
[2024-08-04 10:29] LABS: Basophils # 0.1 K/mm3 (0-0.2); Basophils % 1.1 % (0.1-2.0); Eosinophils # 0.5 K/mm3 (0.0-0.4); Eosinophils % 4.9 % (0.1-12.0); Hematocrit 43.6 % (37.0-47.0); Lymphocytes # 2.4 K/mm3 (0.7-4.5); Mean Corpuscular HGB Conc 32.1 g/dL (31.8-35.4); Mean Corpuscular Hemoglobin 28.1 pg (27.0-31.2); Mean Corpuscular Volume 87.6 fl (81-99); Mean Platelet Volume 8.4 fl (7.4-10.4); Monocytes # 0.6 K/mm3 (0.1-1.0); Monocytes % 6.8 % (1.7-9.3); Neutrophils # 5.9 K/mm3 (1.8-7.8); Neutrophils % 62.4 % (37.0-80.0); Platelet Count 360 K/mm3 (142-424); Red Blood Count 4.98 M/mm3 (4.20-5.40); Red Cell Distribution Width 14.5 % (11.5-17.5); White Blood Count 9.5 K/mm3 (4.8-10.8)
[2024-08-04 11:58] LABS: Alanine Aminotransferase 19 U/L (12-78); Albumin Level 4.1 g/dl (3.5-5.0); Alkaline Phosphatase 97 U/L (38-126); Aspartate Amino Transferase 28 U/L (14-36); Bilirubin,Direct 0.2 mg/dl (0.0-0.4); Bilirubin,Indirect 0.4 mg/dL (0.0-0.9); Bilirubin,Total 0.6 mg/dl (0.2-1.3); Bilirubin,Unconjugated 0.4 mg/dL (0.0-1.1); Blood Urea Nitrogen 16 mg/dl (7-17); Calcium 10.1 mg/dl (8.4-10.2); Carbon Dioxide 30 mmol/L (22.0-30.0); Chloride 107 mmol/L (98-107); Chol/HDL Ratio 3.7 (1-3.5); Cholesterol 145 mg/dl (140-200); Estimated Glomerular Filt Rate 85 ml/min (>60); GFR (African American) 103 ML/MIN (>60); Glucose 97 mg/dl (74-100); HDL Cholesterol 39 mg/dl (40-60); Magnesium 1.8 mg/dl (1.6-2.3); Sodium 141 mmol/L (136-145); Total Protein,Serum 7.4 g/dl (6.3-8.2); Triglycerides 192 mg/dl (30-150); VLDL Cholesterol 38 mg/dL (0-40)
[2024-08-04 12:09] LABS: Direct LDL Cholesterol 60.89 mg/dL (100-129)
[2024-08-04 12:15] LABS: Free T4 (Free Thyroxine) 1.05 ng/dl (0.78-2.19)
[2024-08-04 12:29] LABS: Thyroid Stimulating Hormone 2.02 uIU/mL (0.465-4.68)
[2024-08-04 14:24] LABS: Anion Gap 8.1 mEq/L (5-15); Potassium 4.1 mmoL/L (3.5-5.1)
== END 2024-08-04 23:59 | disposition home or self-care (01) ==
LOC: LAB 10:10
PROVIDERS: PCP Internal Medicine Adolescent Medicine; Visit Provider Nurse Practitioner Family
DX: R00.2 Palpitations (principal); E78.2 Mixed hyperlipidemia; E83.42 Hypomagnesemia; E87.6 Hypokalemia; I10 Essential (primary) hypertension
CPT/HCPCS: 36415; 80048; 80061; 80076; 83735; 84439; 84443; 85025

== ENCOUNTER 2024-09-22 07:46 | Outpatient (CLI) | payer OTHER, SELFPAY ==
--- NOTE | 2024-09-22 07:49 | MM_ITS ---
PROCEDURE INFORMATION: Exam: MG Bilateral Screening 3D Mammography Exam date and time: 09/22/2024 7:46 AM Age: 59 years old Clinical indication: Screening examination TECHNIQUE: Imaging protocol: Bilateral Screening tomosynthesis and 2D mammography including computer-aided detection (CAD) when performed. COMPARISON: 1. MG MM DIG SCREENING MAMM BI W/CAD 10/09/2023 7:48 AM 2. MG MM DIG SCREENING MAMM BI W/CAD 09/19/2022 8:03 AM FINDINGS: MAMMOGRAPHY: Breast composition: There are scattered areas of fibroglandular density. Mass: No suspicious masses. Architectural distortion: None. Calcifications: No suspicious calcifications. Asymmetric density: None. Skin thickening: None. Axillary adenopathy: None. IMPRESSION: No mammographic evidence of malignancy. Annual screening is recommended unless otherwise clinically indicated. ASSESSMENT: BI-RADS Category 1: Negative.
--- NOTE | 2024-09-22 07:49 | CT_ITS ---
FINAL REPORT TECHNIQUE: Thin section axial images were obtained from the lung apices to the upper abdomen by computed tomography. Reformatted images were obtained and reviewed. This study was performed with techniques to keep radiation doses al low as reasonably achievable (ALARA). Individualized dose reduction techniques using automated exposure control or adjustment of mA and/or kV according to the patient's size were employed. CLINICAL HISTORY: former smoker quit 5 years ago 1ppd x30 years whens smoking COMPARISON: 10/09/2023 FINDINGS: CHEST CT LOW DOSE CTDI vol (mGy): 2.90 DLP (mGy-cm): 108.90 There is no axillary adenopathy. There is no mediastinal or hilar mass or adenopathy. The heart is normal in size. There are moderate to severe left coronary artery calcifications. There is no pericardial or pleural effusion. Lung window images demonstrate stable nodules including a medial right upper lobe 4 mm nodule on series 3 image 25, a 7 mm nodule at the minor fissure likely representing an intrafissural node, and a posterior right lower lobe 5 mm nodule on series 3 image 48. No new mass or pulmonary nodule identified. Limited images of the upper abdomen are unremarkable. IMPRESSION: Stable lung nodules. Lung-RADS category 2S. Recommend 12 month follow up low dose chest CT. Modifier S: Moderate to severe left coronary artery calcifications. Reviewed, Interpreted and Dictated by Ranjit Mcgee III, MD Transcribed by Ros Merrill Authenticated and [facility]
== END 2024-09-22 23:59 | disposition home or self-care (01) ==
LOC: RAD 07:47
PROVIDERS: PCP Internal Medicine Adolescent Medicine; Visit Provider Internal Medicine Adolescent Medicine
DX: Z12.31 Encounter for screening mammogram for malignant neoplasm of breast (principal); Z87.891 Personal history of nicotine dependence
CPT/HCPCS: 71271; 77063; 77067

== ENCOUNTER 2025-05-22 11:22 | Emergency (ER) | payer OTHER, SELFPAY ==
[2025-05-22] VITALS (10 sets, daily range): BP systolic 125–162; BP diastolic 83–111; PULSE 72–82; RESP 16–18; TEMP 37–37.2; O2SAT 94–97; BMI 31.9
--- NOTE | 2025-05-22 11:31 | ECG_ITS ---
APPROVED REPORT Exam: Resting ECG HR:81 bpm ECG Measurements Heart Rate 81 AXES MD 149 P 37 QRSd 101 QRS -24 QT 364 T -3 QTc 401 Conclusion SINUS RHYTHM BORDERLINE LEFT AXIS DEVIATION [QRS AXIS < -20] LOW QRS VOLTAGE IN PRECORDIAL LEADS [QRS DEFLECTION < 1.0 mV IN CHEST LEADS] PATTERN CONSISTENT WITH PULMONARY DISEASE MINIMAL ST DEPRESSION [0.025+ mV ST DEPRESSION] ABNORMAL ECG UNCONFIRMED REPORT Electronically signed by : BRIAN STARR, 05/23/2025 06:34:17
--- OUTSIDE RECORDS SUMMARY | 2025-05-22 11:49 | XMS_ITS | Clinical Summary ---
Author Organization [facility] Address [address] [place] [address] Care Team Providers Care Websphere Architect Name Role Phone Adolfo Weber MD Primary Care Provider [phone] Allergies No known active allergies Medications ALPRAZolam (Xanax) 0.5 MG tablet TAKE 2 TAB(S) ORALLY EVERY NIGHT NEEDED 90 DAYS 2 Active bisoprolol (Zebeta) 10 MG tablet TAKE 2 TABLETS ORALLY ONCE A DAY 2 Active busPIRone (Buspar) 10 MG tablet TAKE 1 TABLET BY MOUTH TWICE A DAY FOR 90 DAYS 2 Active ergocalciferol 1.25 MG (64135 UT) capsule Take 1 capsule by mouth 1 (one) time per week. 2 Active Advair Diskus 250-50 MCG/ACT diskus inhaler USE 1 INHALATION BY MOUTH TWICE A DAY DIRECTED FOR 90 DAYS 30 2 Active furosemide (Lasix) 40 MG tablet Take 40 mg by mouth 1 (one) time each day. 2 Active losartan (Cozaar) 100 MG tablet TAKE 1 TABLET BY MOUTH EVERY DAY FOR 90 DAYS 2 Active omeprazole (PriLOSEC) [address] capsule 2 Active KLOR-CON 20 MEQ ER tablet Take 20 mEq by mouth 1 (one) time each day. 2 Active magnesium oxide (Mag-Ox) 400 mg tablet 400 mg 1 (one) time each day. Active Active Problems Problem Noted Date Diagnosed Date Dysphonia 10/20/2022 Social History Tobacco Use Types Packs/Day Years Used Date Smoking Tobacco: Former Cigarettes Smokeless Tobacco: Never Tobacco Cessation:Counseling Given: Not Answered Comments Unknown Sex and Gender Information Value Date Recorded Sex Assigned at Not on file Legal Sex Female 8:00 PM EDT Gender Identity Not on file Sexual Orientation Not on file Last Filed Vital Signs Vital Sign Reading Time Taken Comments Blood Pressure 146/90 10/20/2022 10:00 AM EST Pulse 62 10/20/2022 10:00 AM EST Temperature - - Respiratory Rate - - Oxygen Saturation - - Inhaled Oxygen Concentration - - Weight 107 kg (235 lb) 09/22/2022 8:54 AM EDT Height 180.3 cm (5' 11 ) 09/22/2022 8:54 AM EDT Body Mass Index 32.78 09/22/2022 8:54 AM EDT Plan of Treatment Health Maintenance Due Date Last Done Comments [facility]-Depression Screening 1965 [facility]-HIV Screening 1965 [facility]-Hepatitis C Screening 1965 [facility]-/Child/Adol SDOH Screenings 1965 [facility]- SDOH Screenings 1981 [facility]-Adult SDOH Screenings 1981 [facility]-Pap Smear 02/04/1984 [facility]-Cervical Cancer Screening 1993 [facility]-HPV/Cotest 1993 CT Colonography 02/04/2008 Colonoscopy 02/04/2008 FIT-DNA 02/04/2008 FIT 02/04/2008 FOBT 02/04/2008 Sigmoidoscopy 02/04/2008 [facility]-Colorectal Cancer Screening 02/04/2008 [facility]-Breast Cancer Screening 2013 [facility]-Zoster Vaccines (1 of 2) 2013 [facility]-Pneumococcal Vaccine: 50+ Years (2 of 2 - PCV) 03/25/2020 03/25/2019 [id number] Vaccine (4 - season) 2024 08/23/2021, 01/09/2021, 12/12/2020 [facility]-Influenza Vaccine (Season Ended) 2025 09/08/2022, 09/10/2021, 10/02/2020, Additional history exists [facility]-DTaP,Tdap,and Td Vaccines (3 - Td or Tdap) 03/06/2027 03/06/2017, 07/24/2008 [facility]-RSV Vaccine: 60+ Years or (1 - 1-dose 75+ series) 2038 [facility]-Obesity Intervention Completed , 10/20/2022, 10/20/2022, Additional history exists HPV Vaccines Aged Out No longer eligi ble based on patient's age to complete this topic [facility]-HIB Vaccines Aged Out No longer e ligible based on patient's age to complete this topic [facility]-Hepatitis A Vaccines Aged Out No longer eligible based on patient's age to complete this topic [facility]-IPV Vaccines Aged Out No longer e ligible based on patient's age to complete this topic [facility]-Rotavirus Vaccines Aged Out No lo nger eligible based on patient's age to complete this topic Insurance Care Teams Websphere Architect Relationship Specialty Start Date End Date Adolfo Weber MD [address] [place] [id number] PCP - General Internal Medicine 09/22/22
--- NOTE | 2025-05-22 12:05 | CT_ITS ---
FINAL REPORT TECHNIQUE: Thin section axial CT with contrast with multiplanar reconstruction This study was performed with techniques to keep radiation doses as low as reasonably achievable, (ALARA). Individualized dose reduction techniques using automated exposure control or adjustment of mA and/or kV according to the patient's size were employed. CLINICAL HISTORY: Palpitations, shortness of breath COMPARISON: LDCT 09/22/2024 FINDINGS: Pulmonary vessels enhance in normal fashion without evidence of embolism. Thoracic aorta shows no dissection or aneurysm. Motion artifact is present without obvious pneumonia. There are right sided lung nodules on images #31, 63, and 64, which are stable when compared to the prior LDCT, all measuring 6 mm or less in size. The left lung is clear. There is no significant pleural effusion. There is no significant pericardial effusion. No mediastinal or hilar adenopathy is present. IMPRESSION: 1. No evidence of pulmonary embolism 2. Stable nodules as described above, 6 mm or less in size, in the right lung. Continue LDCT follow-up, which will be due in August 2025. Reviewed, Interpreted and Dictated by Fiona Puga MD Transcribed by Rakel Daniels Authenticated and [facility]
--- NOTE | 2025-05-22 12:05 | ED_ITS ---
Discharge Plan Disposition Patient Disposition: Home, Self-Care Condition: Good Prescriptions Prescriptions: New cefadroxil 500 mg capsule 500 mg PO Q12H 7 Days Qty: 14 0RF No Action furosemide 40 mg tablet 40 mg PO DAILY Patient Comments: TAKE 1 TABLET BY MOUTH EVERY DAY omeprazole 40 mg capsule,delayed release(DR/EC) 40 mg PO BID buspirone 10 mg tablet 10 mg PO BID Patient Comments: TAKE 1 TABLET BY MOUTH TWICE A DAY FOR 90 DAYS Trelegy Ellipta 100-62.5-25 mcg blister with device 1 inh inhalation DAILY Patient Comments: INHALE 1 PUFF ONCE DAILY alprazolam 0.5 mg tablet 0.5 mg PO DAILY metoprolol succinate 25 mg tablet extended release 24 hr 25 mg PO DIRECTED Qty: 180 5RF Rx Instructions: take 25 mg am and 50mg pm. aspirin 81 mg tablet,delayed release (DR/EC) See Rx Instructions .ROUTE .COMPLEX Qty: 30 5RF Dose Instruction: TAKE 1 TABLET BY MOUTH EVERY DAY Rx Instructions: TAKE 1 TABLET BY MOUTH EVERY DAY losartan 25 MG tablet 100 mg PO DAILY magnesium oxide 500 mg capsule 1,000 mg PO DAILY potassium chloride 20 MEQ tablet 20 meq PO DAILY atorvastatin 80 MG tablet 80 mg PO HS Referrals Follow up/Referrals: Adolfo Weber MD [Primary Care Provider, Internal Medicine] - See instructions Activity Restrictions/Add. Instructions Additional Instructions/Restrictions: Please follow-up with the bureau director tomorrow for your echo. Please take your updated metoprolol dosing as prescribed. If you continue to have symptoms please come back to the emergency department. Clinical Impressions Clinical Impression: Heart palpitations Print Language Print Language: Persian Discharge ED Provider: Ronaldo Hull Adult HPI General Chief complaint: Arrhythmia/Palpitations Stated complaint: elevated HR, brought by cardiology Time Seen by Provider: 05/22/25 11:39 Mode of Arrival: Ambulatory Source of Information: Patient Description of Symptoms (Recalled from ER Triage Doc. by RN): Patient states she has been feeling like her heart is racing since Thursday05/19/25- was seen at the ER in [place] that day, had bloodwork done, had fluids and magnesium replaced. Was sent from PCP office this morning after no improvement in symptoms, states increasing her metoprolol had been discussed but no changes have been made to her medication yet. History of Present Illness HPI narrative: Krissy Chandler is a 60-year-old female past medical history of CAD, hypertension, hypomagnesemia presenting for palpitations. Patient is on metoprolol every day but noticed over the last 2 days that she has had an episode of her heart racing. She initially presented to an outside facility and was given a dose of metoprolol which improved her tachycardia. Over the last 2 days she has been feeling off and increased her magnesium and potassium supplements as she was told that they were low at the outside hospital. She then saw her primary doctor today as she had another episode while she was at breakfast for these symptoms. She typically checks her heart rate by palpation and said that it was around 100 this morning. She has not recently changed her metoprolol dose, and has been about 6 months. At this time denies leg swelling, chest pain, shortness of breath, abdominal pain, nausea, vomiting, fevers or chills Related Data Home Medications ?Medication ?Instructions ?Recorded ?Confirmed atorvastatin 80 mg tablet 80 mg PO HS Cholesterol 02/2805/22/25 potassium chloride 20 mEq 20 meq PO DAILY Supplement 0 03/16/19 05/22/25 tablet,extended release(part/cryst) losartan 25 mg tablet 100 mg PO DAILY High blood p ressure 12/01/20 05/22/25 buspirone 10 mg tablet 10 mg PO BID 07/04/24 fluticasone fur. 100 mcg-umeclid 1 inh inhalation CAMMY Y 07/04/24 05/22/25 62.5 mcg-vilant 25 mcg inhalat.powder (Trelegy Ellipta) furosemide 40 mg tablet 40 mg PO DAILY 07/04/2405/01 magnesium oxide 500 mg capsule 1,000 mg PO DAILY Suppl ement 07/04/24 05/22/25 omeprazole 40 mg capsule,delayed 40 mg PO BID 07/04/24 05/22/25 release alprazolam 0.5 mg tablet 0.5 mg PO DAILY 05/22/25 Previous Rx's ?Medication ?Instructions ?Recorded aspirin 81 mg tablet,delayed See Rx Instructions .Rout e 01/17/25 release .COMPLEX #30 tabs cefadroxil 500 mg capsule 500 mg PO Q12H 7 days #14 ca ps 05/22/25 metoprolol succinate 25 mg 25 mg PO DIRECTED #180 t abs 05/22/25 tablet,extended release 24 hr Allergies Allergy/AdvReac Type Severity Reaction Status Date / Time codeine AdvReac Nausea Verified 05/22/25 10:43 [facility] Disclaimer: The information contained in this section may have been updated after the patient was seen, as this information can be updated by other users. Medical History Skin cancer PVC (premature ventricular contraction) PAC (premature atrial contraction) SVT (supraventricular tachycardia) HLD (hyperlipidemia) Tonsillectomy planned Colonoscopy planned Asthma High cholesterol Surgical History History of appendectomy H/O: hysterectomy Family History Mother Cancer Hypertension Father Cancer Sister Heart attack Hypertension Social History Smoking Status: Former smoker tobacco type: cigarettes alcohol intake: never current occupational status: retired Travel in the last 8 weeks?: None household members: spouse housing: house current occupation: TEACHER current occupational exposures/hazards: No caffeine: Yes Have you lived/traveled outside [place] in past 30 days?: No Contact w/someone who lives/traveled outside US past 30 days?: No Exposure to someone with infectious disease in past 14 days?: No Do you have a fever (greater than 100.4 F or 38 C)?: No Have you tested positive for COVID-19?: No Exposed to someone with COVID-19 in past 14 days?: No Do you have a sore throat?: No Do you have a cough?: No Do you have any weakness?: No Do you have any diarrhea?: No Are you experiencing any unusual bleeding?: No Do you have any muscle aches/pain?: No Do you have any abdominal pain?: No Are you experiencing loss of taste or smell?: No Other Medical History Have you received the Flu Vaccine for this season: No Have you received the Pneumonia Vaccine: No ROS Obtained: Yes All systems reviewed & no additional complaints except as documented Physical Exam General General appearance: alert and in no apparent distress ENT ENT exam: Present normal exam Neck Neck exam: Present normal inspection Chest Chest inspection: Present normal inspection and symmetric chest wall rise Respiratory Respiratory exam: Present normal lung sounds bilaterally; Absent respiratory distress or wheezes Cardiovascular Cardiovascular exam: Present regular rate and normal rhythm Abdominal Exam Abdominal exam: Present soft; Absent distention or tenderness Back Exam Back exam: Present normal inspection Neurological Exam Neurological exam: Present alert; Absent oriented X3 Skin Skin exam: Present warm Medical Decision Making Medical Records Screening: Per USPSTF and CDC recommendations, given the prevalence of disease in our region, it is our hospital?s policy to screen for HIV and viral Hepatitis for all patients aged 18 and over and those with ongoing risk factors. Carlos Inquiry Pt receiving controlled substance: No Vital Signs: 05/22/25 11:30 05/22/25 11:33 05/22/25 11:33 Temperature 98.9 F Temperature Source Oral Pulse Rate 77 75 Pulse Rate [Right Radial] 72 Respiratory Rate 17 Blood Pressure 162/111 H 155/92 H Blood Pressure [Right Arm] 155/92 H Blood Pressure Mean 136 113 Blood Pressure Mean [Right Arm] 113 Blood Pressure Source Blood Pressure Source [Right Arm] Automatic Cuff Blood Pressure Position Blood Pressure Position [Right Arm] Sitting 02 Sat by Pulse Oximetry 96 96 94 L Oxygen Delivery Method Room Air 05/22/25 12:00 05/22/25 12:30 05/22/25 13:01 Temperature Temperature Source Pulse Rate 75 77 82 Pulse Rate [Right Radial] Respiratory Rate 18 18 Blood Pressure 133/97 H 135/94 H 125/95 H Blood Pressure [Right Arm] Blood Pressure Mean 116 107 100 Blood Pressure Mean [Right Arm] Blood Pressure Source Blood Pressure Source [Right Arm] Blood Pressure Position Blood Pressure Position [Right Arm] 02 Sat by Pulse Oximetry 94 L 94 L 94 L Oxygen Delivery Method 05/22/25 13:30 05/22/25 14:00 05/22/25 14:12 Temperature Temperature Source Pulse Rate 72 72 Pulse Rate [Right Radial] Respiratory Rate Blood Pressure 135/83 145/103 H 148/100 H Blood Pressure [Right Arm] Blood Pressure Mean 108 118 114 Blood Pressure Mean [Right Arm] Blood Pressure Source Blood Pressure Source [Right Arm] Blood Pressure Position Blood Pressure Position [Right Arm] 02 Sat by Pulse Oximetry 96 96 Oxygen Delivery Method 05/22/25 14:30 05/22/25 15:11 Temperature 98.6 F Temperature Source Oral Pulse Rate 81 81 Pulse Rate [Right Radial] Respiratory Rate 16 Blood Pressure 135/85 135/85 Blood Pressure [Right Arm] Blood Pressure Mean 107 Blood Pressure Mean [Right Arm] Blood Pressure Source Automatic Cuff Blood Pressure Source [Right Arm] Blood Pressure Position Supine Blood Pressure Position [Right Arm] 02 Sat by Pulse Oximetry 97 Oxygen Delivery Method Room Air Lab Data Lab Results 05/22/25 11:31: Urine Color Yellow, Urine Appearance Clear, Urine pH 5.5, Ur Specific [place] 1.010, Urine Protein Negative, Urine Glucose (UA) Negative, Urine Ketones Negative, Urine Blood Trace-l, Urine Nitrate Negative, Urine Bilirubin Negative, Urine Urobilinogen 0.2, Ur Leukocyte Esterase 1+ A, Urine RBC Occasional, Urine WBC 10-20, Ur Squamous Epith Cells 3-5, Urine Bacteria 2+ 05/22/25 11:34: WBC 10.7, RBC 5.49 H, Hgb 15.0, Hct 46.9, MCV 85.4, MCH 27.3, MCHC 32.0, RDW 13.5, Plt Count 412, MPV 10.5 H, Neut % (Auto) 71.7, Lymph % (Auto) 19.3, [place] % (Auto) 5.5, Eos % (Auto) 2.5, Baso % (Auto) 0.6, Neut # (Auto) 7.7, Lymph # (Auto) 2.1, [place] # (Auto) 0.6, Eos # (Auto) 0.3, Baso # (Auto) 0.1, Sodium 142, Potassium 4.2, Chloride 102, Carbon Dioxide 30, Anion Gap 14.2, BUN 13, Creatinine 0.90, Estimated Creat Clear 96, Estimated GFR 63, Est GFR ( Amer) 77, Glucose 135 H, Calcium 9.9, Phosphorus 2.6, Magnesium 1.9, Total Bilirubin 0.5, AST 32, ALT 18, Alkaline Phosphatase 119, Troponin I < 0.01, NT-Pro-B Natriuret Pep 147 H, Total Protein 8.8 H, Albumin 4.7, Globulin 4.1 H, Albumin/Globulin Ratio 1.1, TSH 2.42, Free T4 1.28 05/22/25 14:29: Troponin I < 0.01 05/22/25 11:34 05/22/25 11:34 Orders (Tests/Meds): ED MEDICATIONS Discontinued Medications Generic Name Dose Route Start Last Admin Trade Name Ananthq PRN Reason Stop Dose Admin Iopamidol 80 ml 05/22/25 13:16 05/22/25 13:17 Iopamidol-370 (76%);100ml Bottle IV 05/22/25 13:17 80 ml ONCE ONE Administration Nitroglycerin 0.4 mg 05/22/25 12:06 Nitroglycerin 0.4mg Sl Tablet SL 05/23/25 12:06 Q5MINP PRN Chest Pain Sodium Chloride 50 ml 05/22/25 13:16 05/22/25 13:17 0.9 % Sodium Chloride 50 Ml Vial IV 05/22/25 13:17 50 ml ONCE ONE Administration Sodium Chloride 10 ml 05/22/25 13:16 Sodium Chloride 0.9% 10ml Syr (Rad Only) IV 06/21/25 13:15 NEEDED PRN Maintain IV Site ORDERS Category Date Time Status CT angio chest PE protocol Stat Cat Scan 05/22/25 12:05 Completed CA 2 week event monitor Routine Exams 05/22/25 14:53 Completed Complete Blood Count Auto Diff Stat Lab 05/22/25 11:34 Completed Comprehensive Metabolic Panel Stat Lab 05/22/25 11:34 Completed Free T4 (Free Thyroxine) Stat Lab 05/22/25 11:34 Completed Magnesium Stat Lab 05/22/25 11:34 Completed NT Pro Brain Natriuretic Pep. Stat Lab 05/22/25 11:34 Completed Phosphorous Stat Lab 05/22/25 11:34 Completed Thyroid Stimulating Hormone Stat Lab 05/22/25 11:34 Completed Troponin I Q3H Lab 05/22/25 14:29 Completed Troponin I Stat Lab 05/22/25 11:34 Completed Urinalysis and Microscopic Stat Lab 05/22/25 11:31 Completed Urine Culture Stat Micro 05/22/25 11:31 Received Medical Decision Narrative: In summary, this 60-year-old female presents to the emergency department today with palpitations. On initial evaluation patient is hemodynamically stable, nontachycardic and hemodynamically stable. She was initially seen in cardiology office that showed no obvious arrhythmia on EKG. She has been seen recently and had electrolyte abnormalities. Differential diagnosis includes but is not limited to arrhythmia, electrolyte abnormality, dehydration. Based on these concerns, I ordered labs and imaging as she was seen a couple of days ago and did not have a CT at that time ECG personally interpreted demonstrates sinus rhythm, no ST elevation, QTc within normal limits. Labs personally reviewed demonstrate no electrolyte abnormality, no leukocytosis, questionable UTI on urinalysis. CT imaging personally interpreted demonstrate no large pulmonary embolism or pneumothorax. I had an interactive discussion with the cardiology service and they came down to see her and changed her metoprolol dosing. On reassessment hemodynamically stable in no acute distress. She has not had an episode of tachycardia while in the emergency department but has been on telemetry. I discussed with patient at bedside about her urine and patient's again said that she had no dysuria, weird smells with urination, fevers or abdominal pain. With shared decision making I prescribed her antibiotics but discussed that she does not necessarily have to start them today and we can watch and wait. Additionally cardiology set her up for a echo tomorrow. Patient given strict return precautions, discharged in stable condition. Admission as considered and ultimately patient was discharged. I offered admission for her symptoms and she did not want to be admitted at this time.. . Critical Care Critical Care Time Critical Care Time: No
[2025-05-22 12:15] LABS: Microscopic, Urine URINE MICROSCOPIC (MICROSCOPIC)
[2025-05-22 12:16] LABS: Basophils # 0.1 K/mm3 (0-0.2); Basophils % 0.6 % (0.1-2.0); Eosinophils # 0.3 Kmm3 (0.0-0.4); Eosinophils % 2.5 % (0.1-12.0); Hematocrit 46.9 % (37.0-47.0); Immature Granulocytes # 0.04 10^3uL; Immature Granulocytes % 0.4 %; Lymphocytes # 2.1 K/mm3 (0.7-4.5); Lymphocytes % 19.3 % (10-50); Mean Corpuscular Hemoglobin 27.3 pg (27.0-31.2); Mean Corpuscular Volume 85.4 fl (81-99); Mean Platelet Volume 10.5 fl (7.4-10.4); Monocytes # 0.6 K/mm3 (0.1-1.0); Monocytes % 5.5 % (1.7-9.3); Neutrophils # 7.7 K/mm3 (1.8-7.8); Neutrophils % 71.7 % (37.0-80.0); Nucleated Red Blood Cells # 0 10^3/uL; Nucleated Red Blood Cells % 0 %; Platelet Count 412 K/mm3 (142-424); Red Blood Count 5.49 M/mm3 (4.20-5.40); Red Cell Distribution Width 13.5 % (11.5-17.5); Red Cell Distribution Width-SD 42.1 fL; White Blood Count 10.7 K/mm3 (4.8-10.8)
[2025-05-22 12:20] LABS: Appearance,Urine CLEAR (Clear); Bilirubin,Urine Negative (Negative); Blood, Urine TRACE-L (Negative); Color,Urine YELLOW (Yellow); Glucose,Urine (UA) Negative (Negative); Ketones,Urine Negative (Negative); Leukocyte Esterase,Urine 1+ (Negative); Nitrate,Urine Negative (Negative); PH,Urine 5.5 (5.0-8.5); Protein,Urine Negative (Negative); Urobilinogen,Urine 0.2 EU/dl (0.2)
[2025-05-22 12:25] LABS: Chloride 102 mmol/L (98-107)
[2025-05-22 12:26] LABS: Albumin Level 4.7 g/dl (3.5-5.0); Potassium 4.2 mmoL/L (3.5-5.1); Sodium 142 mmol/L (136-145)
[2025-05-22 12:28] LABS: Alanine Aminotransferase 18 U/L (12-78); Anion Gap 14.2 mEq/L (5-15); Aspartate Amino Transferase 32 U/L (14-36); Bilirubin,Total 0.5 mg/dl (0.2-1.3); Blood Urea Nitrogen 13 mg/dl (7-17); Carbon Dioxide 30 mmol/L (22.0-30.0); Creatinine Clearance Estimated 96 mL/min (50-200); Estimated Glomerular Filt Rate 63 ml/min (>60); GFR (African American) 77 ML/MIN (>60); Magnesium 1.9 mg/dl (1.6-2.3); Phosphorous 2.6 mg/dl (2.5-4.5)
[2025-05-22 12:29] LABS: Albumin/Globulin Ratio 1.1 (1.1-1.8); Alkaline Phosphatase 119 U/L (38-126); Calcium 9.9 mg/dl (8.4-10.2); Globulin 4.1 g/dL (1.3-3.2); Glucose 135 mg/dl (74-100); Total Protein,Serum 8.8 g/dl (6.3-8.2)
[2025-05-22 12:33] LABS: NT Pro Brain Natriuretic Pep. 147 pg/mL (0-125)
[2025-05-22 12:34] LABS: Bacteria,Urine 2+ /lpf; RBC,Urine Occasional #/hpf (0-3)
[2025-05-22 12:36] LABS: Troponin I < 0.01 ng/ml (0.00-0.034)
[2025-05-22] MEDS: 0.9 % SODIUM CHLORIDE 50 ML VIAL IV (13:17)
[2025-05-22] MEDS: IOPAMIDOL-370 (76%);100ML BOTTLE 80 ML IV (13:17)
--- NOTE | 2025-05-22 13:17 | PC.NURSE ---
pt back from RAD at this time
--- NOTE | 2025-05-22 14:38 | PC.NURSE ---
Dr Sargent paged for this pt
[2025-05-22 14:56] LABS: Free T4 (Free Thyroxine) 1.28 ng/dl (0.78-2.19)
[2025-05-22 15:07] LABS: Troponin I < 0.01 ng/ml (0.00-0.034)
[2025-05-22 15:10] LABS: Thyroid Stimulating Hormone 2.42 uIU/mL (0.465-4.68)
== END 2025-05-22 15:32 | disposition home or self-care (01) ==
PROVIDERS: Emergency Provider Student in an Organized Health Care Education/Training Program; PCP Internal Medicine Adolescent Medicine
DX: R00.2 Palpitations (principal); I25.10 Atherosclerotic heart disease of native coronary artery without angina pectoris; I10 Essential (primary) hypertension; E78.5 Hyperlipidemia, unspecified; Z87.891 Personal history of nicotine dependence
CPT/HCPCS: 71275; 80053; 81001; 83735; 83880; 84100; 84439; 84443; 84484; 85025; 87086; 93005; 93270; 99285; Q9967

== ENCOUNTER 2025-05-24 09:31 | Outpatient (CLI) | payer OTHER, SELFPAY ==
--- OUTSIDE RECORDS SUMMARY | 2025-03-04 17:30 | XMS_ITS ---
Author Organization [facility] PE D JOHNY Address [address] [facility] [address] [place] [address] Care Team Providers Care Surgical Coordinator Name Role Phone Adolfo Weber Primary Care Provider Migration, Provider Unavailable Unavailable Allergies Allergen (clinical drug ingredient) Drug/Non Drug Allergy documented on EMR Reaction Allergy Type Onset Date Status codeine Codeine stomach upset Drug Allergy Act j[facility] Conversion Encounter Medications Medication SIG (Take, Route, Frequency, Duration) Notes Start Date End Date Status Atorvastatin Calcium 80 MG 1 tab(s) orally once a day; Duration: 90 Active Magnesium Oxide 500 MG 1 TAB ORALLY ONCE A DAY *Please review and pick correct strength-formulatio n from [employer] options. If intended option is not shown, discontinue and re-order from Quick Search* Active Metoprolol Succinate ER 50 MG 1 TAB(S) ORALLY ONCE A DAY *Please review and pick correct strength-formulatio n from [employer] options. If intended option is not shown, discontinue and re-order from Quick Search* Active Combivent Respimat 20-100 MCG/ACT 1 INH inhaled 4 times a day; Duration: 30 days Active Klor-Con M20 20 MEQ TAKE 1 TABLET BY MOUTH EVERY DAY; Duration: 90 Active ALPRAZolam 0.5 MG 2 tab(s) orally every night PRN; Duration: 90 days 01/21/2025 Active Losartan Potassium 100 MG 1 tab(s) orally once a day; Duration: 90 day(s) Active Trelegy Ellipta 100 MCG-62.5 MCG-25 MCG/INH INHALE 1 PUFF ONCE DAILY; Duration: 30 *Please review and pick correct strength-formulatio n from Medispan options. If intended option is not shown, discontinue and re-order from Quick Search* Active Omeprazole 40 MG twice daily; Duration: 90 days Active busPIRone HCl 10 MG 1 tab(s) orally 2 times a day; Duration: 90 days Active Furosemide 40 MG 1 tab(s) orally once a day; Duration: 90 Active Encounters Encounter Location Date Provider Diagnosis 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 Assessments Encounter Date Diagnosis (ICD Code) Assessment Notes Treatment Notes Treatment Clinical Notes Section Notes 03/04/2025 COPD with chronic bronchitis (ICD-10 - J44.89) Plan Of Treatment Medication Medication Name Sig Start Date Stop Date Notes Combivent Respimat 20-100 MCG/ACT 1 INH inhaled 4 times a day; Duration: 30 days Next Appt Details Provider Name:Adolfo Weber, 09/05/2025 10:15:00 AM, [address] [place] [address], [id number], Progress Notes * Krissy CHANDLERDOB:1965 (60 yo F)Acc No.[id number]:03/04/2025 Patient: Krissy KINGSTON Provider: Denton Chowdhury :1965 A ge:60 Y S ex:Female Date:03/04/2025 Address:[address] [place] [address], [address] [place] [id number] Pcp:Adolfo Weber Subjective: * Chief Complaints: * 1 . Multum To Medispan Conversion Encounter. * Medical History: * Medications: T aking Metoprolol Succinate ER 50 MG CAPSULE, EXTENDED RELEASE 1 TAB(S) ORALLY ONCE A DAY , Notes to Pharmacist: *Please review and pick correct strength-formulation from Medispan options. If intended option is not shown, discontinue and re-order from Quick Search*, Taking Magnesium Oxide 500 MG TABLET 1 TAB ORALLY ONCE A DAY , Notes to Pharmacist: *Please review and pick correct strength-formulation from [employer] options. If intended option is not shown, discontinue and re-order from Quick Search*, Taking Atorvastatin Calcium 80 MG Tablet 1 tab(s) orally once a day , Taking Klor-Con M20 20 MEQ Tablet Extended Release TAKE 1 TABLET BY MOUTH EVERY DAY , Taking Furosemide 40 MG Tablet 1 tab(s) orally once a day , Taking busPIRone HCl 10 MG Tablet 1 tab(s) orally 2 times a day , Taking Omeprazole 40 MG Capsule Delayed Release twice daily , Taking Trelegy Ellipta 100 MCG-62.5 MCG-25 MCG/INH POWDER INHALE 1 PUFF ONCE DAILY , Notes to Pharmacist: *Please review and pick correct strength-formulation from [employer] options. If intended option is not shown, discontinue and re-order from Quick Search*, Taking Losartan Potassium 100 MG Tablet 1 tab(s) orally once a day , Taking ALPRAZolam 0.5 MG Tablet 2 tab(s) orally every night PRN * Allergies: C odeine: stomach upset. Objective: * Vitals: Assessment: * Assessment: 1. C OPD with chronic bronchitis - J44.89 Plan: * Treatment: * * Electronic signature of Citlali yin Migration on 05/24/2025 at 09:34 AM EDT Sign off status: Pending * Provider: Denton longoria Migration Date: 0 03/04/2025 Generated for Fatmata villalba/Eugenio/Demi on: 0 05/24/2025 09:34 AM EDT
--- OUTSIDE RECORDS SUMMARY | 2025-05-24 09:34 | XMS_ITS ---
Author Organization Unknown Medications Medication Instructions Effective Dates (start - stop) Status 60 ACTUAT fluticasone propio jaleel 0.25 MG/ACTUAT / salmeterol 0.05 MG/ACTUAT Dry Powder Inhaler [Advair] [id number]:00:00.000+00: 00 - Completed 60 ACTUAT fluticasone propio jaleel 0.25 MG/ACTUAT / salmeterol 0.05 MG/ACTUAT Dry Powder Inhaler [Advair] [id number]:00:00.000+00: 00 - Completed alprazolam 0.5 MG Oral Tablet 21-07-15:00:00.000+00: 00 - Completed - [id number]:00 :00.000+00: 00 - Completed buspirone hydrochloride 10 M G Oral Tablet 5504-13-26L98:00:00.000+00: 00 - Completed buspirone hydrochloride 10 M G Oral Tablet 9926-74-69E31:00:00.000+00: 00 - Completed 60 ACTUAT fluticasone propio jaleel 0.25 MG/ACTUAT / salmeterol 0.05 MG/ACTUAT Dry Powder Inhaler [Advair] [id number]:00:00.000+00: 00 - Completed 60 ACTUAT fluticasone propio jaleel 0.25 MG/ACTUAT / salmeterol 0.05 MG/ACTUAT Dry Powder Inhaler [Advair] [id number]:00:00.000+00: 00 - Completed nystatin 100 UNT/MG Topical Powder 7100-94-04O22:00:00.000+00: 00 - Completed molnupiravir 200 MG Oral Capsule 6809-77-52E10:00:00.000+00: 00 - Completed 60 ACTUAT fluticasone propio jaleel 0.25 MG/ACTUAT / salmeterol 0.05 MG/ACTUAT Dry Powder Inhaler [Advair] 8029-49-19S05:00:00.000+00: 00 - Completed ergocalciferol 1.25 MG Oral Capsule [id number]:00:00.000+00: 00 - Completed 60 ACTUAT fluticasone propio jaleel 0.25 MG/ACTUAT / salmeterol 0.05 MG/ACTUAT Dry Powder Inhaler [Advair] [id number]:00:00.000+00: 00 - Completed atorvastatin 80 MG Oral Tablet 2 708-02-49T72:00:00.000+00: 00 - Completed buspirone hydrochloride 10 M G Oral Tablet 4074-91-17C92:00:00.000+00: 00 - Completed furosemide 40 MG Oral Tablet 02-02-29:00:00.000+00: 00 - Completed atorvastatin 80 MG Oral Tablet 2 308-78-26D54:00:00.000+00: 00 - Completed 60 ACTUAT fluticasone propio jaleel 0.25 MG/ACTUAT / salmeterol 0.05 MG/ACTUAT Dry Powder Inhaler [Advair] [id number]:00:00.000+00: 00 - Completed 60 ACTUAT fluticasone propio jaleel 0.25 MG/ACTUAT / salmeterol 0.05 MG/ACTUAT Dry Powder Inhaler [Advair] 0059-04-21M68:00:00.000+00: 00 - Completed 60 ACTUAT fluticasone propio jaleel 0.25 MG/ACTUAT / salmeterol 0.05 MG/ACTUAT Dry Powder Inhaler [Advair] [id number]:00:00.000+00: 00 - Completed 60 ACTUAT fluticasone propio jaleel 0.25 MG/ACTUAT / salmeterol 0.05 MG/ACTUAT Dry Powder Inhaler [Advair] 4075-02-57Z67:00:00.000+00: 00 - Completed atorvastatin 80 MG Oral Tablet 2 389-42-17F97:00:00.000+00: 00 - Completed ergocalciferol 1.25 MG Oral Capsule 4691-02-13T80:00:00.000+00: 00 - Completed 60 ACTUAT fluticasone propio jaleel 0.25 MG/ACTUAT / salmeterol 0.05 MG/ACTUAT Dry Powder Inhaler [Advair] [id number]:00:00.000+00: 00 - Completed buspirone hydrochloride 10 M G Oral Tablet 7491-42-47M74:00:00.000+00: 00 - Completed ergocalciferol 1.25 MG Oral Capsule 1909-85-10V20:00:00.000+00: 00 - Completed ergocalciferol 1.25 MG Oral Capsule 9654-88-44L65:00:00.000+00: 00 - Completed 60 ACTUAT fluticasone propio jaleel 0.25 MG/ACTUAT / salmeterol 0.05 MG/ACTUAT Dry Powder Inhaler [Advair] 1941-48-90S92:00:00.000+00: 00 - Completed alendronic acid 35 MG Oral Tablet 8465-83-10H76:00:00.000+00: 00 - Completed fluconazole 150 MG Oral Tablet 871-53-11O62:00:00.000+00: 00 - Completed bisoprolol fumarate 10 MG Or al Tablet 8780-27-69N73:00:00.000+00: 00 - Completed furosemide 40 MG Oral Tablet 01-11-29:00:00.000+00: 00 - Completed losartan potassium 100 MG Or al Tablet 5688-94-55O95:00:00.000+00: 00 - Completed losartan potassium 100 MG Or al Tablet 9030-66-29F18:00:00.000+00: 00 - Completed alendronic acid 35 MG Oral Tablet 2503-99-47O09:00:00.000+00: 00 - Completed alendronic acid 35 MG Oral Tablet 9030-35-63E00:00:00.000+00: 00 - Completed bisoprolol fumarate 10 MG Or al Tablet 4460-26-52O05:00:00.000+00: 00 - Completed omeprazole 40 MG Delayed Rel ease Oral Capsule 4438-42-62E00:00:00.000+00: 00 - Completed {21 (methylprednisolone 4 MG Oral Tablet) } Pack [id number]:00:00.000+00: 00 - Completed losartan potassium 100 MG Or al Tablet 9588-09-79Z63:00:00.000+00: 00 - Completed prednisone 20 MG Oral Tablet 01-09-10:00:00.000+00: 00 - Completed omeprazole 40 MG Delayed Rel ease Oral Capsule [id number]:00:00.000+00: 00 - Completed alprazolam 0.5 MG Oral Tablet 21-10-13:00:00.000+00: 00 - Completed furosemide 40 MG Oral Tablet 01-08-10:00:00.000+00: 00 - Completed omeprazole 40 MG Delayed Rel ease Oral Capsule 3264-35-84X86:00:00.000+00: 00 - Completed omeprazole 40 MG Delayed Rel ease Oral Capsule [id number]:00:00.000+00: 00 - Completed bisoprolol fumarate 10 MG Or al Tablet 8421-12-02G72:00:00.000+00: 00 - Completed alendronic acid 35 MG Oral Tablet [id number]:00:00.000+00: 00 - Completed losartan potassium 100 MG Or al Tablet 6664-13-76G05:00:00.000+00: 00 - Completed doxycycline monohydrate 100 MG Oral Tablet 1993-21-66C49:00:00.000+00: 00 - Completed Microencapsulated potassium chloride 20 MEQ Extended Release Oral Tablet [Klor-Con] [id number]:00:00.000+00: 00 - Completed alprazolam 0.5 MG Oral Tablet 22-01-13:00:00.000+00: 00 - Completed Microencapsulated potassium chloride 20 MEQ Extended Release Oral Tablet [Klor-Con] [id number]:00:00.000+00: 00 - Completed furosemide 40 MG Oral Tablet 202 01-30-26:00:00.000+00: 00 - Completed alprazolam 0.5 MG Oral Tablet 20 23-05-14T00:00:00.000+00: 00 - Completed Microencapsulated potassium chloride 20 MEQ Extended Release Oral Tablet [Klor-Con] [id number]:00:00.000+00: 00 - Completed prednisone 20 MG Oral Tablet 01-07-15T:00:00.000+00: 00 - Completed Microencapsulated potassium chloride 20 MEQ Extended Release Oral Tablet [Klor-Con] [id number]:00:00.000+00: 00 - Completed Patient Care team information Name Category Status Period Participants - - Proposed period not known -
--- OUTSIDE RECORDS SUMMARY | 2025-05-24 09:34 | XMS_ITS | Data Portability ---
Author Organization [facility] [place] [facility] Aleman ADMIN Address [address] [place] [id number] Assessment No assessment recorded. Plan of Treatment Reminders Order Date Submit Date Provider Last Modified By Organization Details Last Modified Time Details Appointments None recorded. Lab influenza virus A + B + SARS-CoV-2 (COVID19) Ag panel, rapid IA, upper respiratory specimen 2022 023 [email or web address] Not available 11:36:15 Referral None recorded. Procedures None recorded. Surgeries None recorded. Imaging None recorded. Medication Orders None recorded. Patient TargetsNo targets recorded. Patient Instructions Encounter Date Encounter Id Patient Instructions Last Modified By Organization Details Last Modified Time 12/16/2022 [id number] viral infections : care instructions [email or web address] Not available 12/16/2022 10:32:33 Reason for Referral None Reported. Results Created Date Observation Date Name Description Value Unit Range Abnormal Flag Note LastModifiedBy Organization Detail LastModifiedTime 12/16/19 23 12/16/2022 influ garrett virus A + B + SARS- CoV-2 (COVI D19) Ag panel , rapid IA, upper respi rator y speci men FLU A negati ve Not Available [facility] [address], [place], [address], 12/16/2022 10:10:44 12/16/19 23 12/16/2022 influ garrett virus A + B + SARS- CoV-2 (COVI D19) Ag panel , rapid IA, upper respi rator y speci men FLU B negati ve Not Available [facility] [address], [place], [address], 12/16/2022 10:10:44 12/16/19 23 12/16/2022 influ garrett virus A + B + SARS- CoV-2 (COVI D19) Ag panel , rapid IA, upper respi rator y speci men SARS COV + SARS OV 2 negati ve Not Available [facility] [address] [facility] [address], [place], [address], 12/16/2022 10:10:44 01/19/20 24 01/15/2024 CT, abdom en + pelvi s, w/wo contr ast No observ ation record ed. [email or web address] Not Available 01/01 11:25:06 Result Notes None recorded. Medical Equipment None Reported. Allergies No known drug allergies Medications Name Sig Start Date Stop Date Status Note LastModified by Organization Details LastModified Time nifedipine ER 30 mg tablet,exte nded release 24 hr TAKE 1 TABLET BY MOUTH EVERY DAY FOR 30 DAYS active Not Available Not Available No t Available furosemide 40 mg tablet TAKE 1 TABLET BY MOUTH EVERY DAY active Not Available Not Available No t Available ipratropium 0.5 mg-albutero l 3 mg (2.5 mg base)/3 mL nebulizatio n soln USE 1 VIAL BY NEBULIZER 4 TIMES A DAY 30 DAY(S) active Not Available Not Available No t Available fluconazole 150 mg tablet TAKE ONE TABLET BY MOUTH ONCE. MAY REPEAT in 3 DAYS if symptoms persist. 12/16 completed Not Available Not Available Not Available meloxicam 15 mg tablet TAKE 1 TABLET BY MOUTH EVERY DAY active Not Available Not Available No t Available prednisone 20 mg tablet 3 TABS ORALLY ONCE A DAY FOR TWO DAYS, THEN 2 DAILY FOR 2 DAYS, THEN ONE DAILY FOR TWO DAYS 6 DAY(S) 12/16 completed Not Available Not Available Not Available omeprazole 40 mg capsule,del ayed release TAKE 1 CAPSULE ORAL TWICE A DAY DIRECTED TAKE EACH CAPSULE 30 MINUTES PRIOR TO MEALS. 12/16 completed Not Available Not Available Not Available bisoprolol fumarate 10 mg tablet TAKE 2 TABLETS ORALLY ONCE A DAY active Not Available Not Available No t Available alprazolam 0.5 mg tablet TAKE 2 TAB(S) ORALLY EVERY NIGHT NEEDED 90 DAYS active Not Available Not Available No t Available pantoprazol e 40 mg tablet,vanna yed release TAKE 1 TABLET BY MOUTH TWICE A DAY 12/16 completed Not Available Not Available Not Available buspirone 10 mg tablet TAKE 1 TABLET BY MOUTH TWICE A DAY FOR 90 DAYS active Not Available Not Available No t Available Advair Diskus 250 mcg-50 mcg/dose powder for inhalation USE 1 INHALATIO N BY MOUTH TWICE A DAY DIRECTED FOR 90 DAYS 30 active Not Available Not Available No t Available omeprazole 20 mg capsule,del ayed release TAKE 1 CAPSULE BY MOUTH TWICE A DAY 12/16 completed Not Available Not Available Not Available ergocalcife rol (vitamin D2) 1,250 mcg (50,000 unit) capsule TAKE 1 CAPSULE ORALLY ONCE A WEEK 84 active Not Available Not Available No t Available nystatin 100,000 unit/gram topical powder APPLY ONE APPLICATO R TOPICALLY 3 TIMES A DAY FOR 10 DAYS 12/16 completed Not Available Not Available Not Available losartan 100 mg tablet TAKE 1 TABLET BY MOUTH EVERY DAY FOR 90 DAYS active Not Available Not Available No t Available amoxicillin 875 mg-potassiu m clavulanate 125 mg tablet TAKE ONE TABLET BY MOUTH EVERY TWELVE HOURS FOR 10 DAYS -- FINISH ALL MEDICINE -- 12/16 completed Not Available Not Available Not Available Klor-Con M20 mEq tablet,exte nded release TAKE 1 TABLET BY MOUTH EVERY DAY active Not Available Not Available No t Available Combivent Respimat 20 mcg-100 mcg/actuati on solution for inhalation INHALE 1 PUFF(S) INHALED 4 TIMES A DAY 30 DAY(S) active Not Available Not Available No t Available Vitals Date Recorded Body height Body mass index (BMI) Body weight Body temperature Oxygen saturation Oxygen saturation in Arterial blood by Pulse oximetry Heart rate Systolic blood pressure Diastolic blood pressure Provider Name and Address Organization Details Last Updated DateTime 3 180.34 cm 33.1 kg/m2 010773. 83 g 97.2 [degF] 97 % 97 % 60 /min 146 mm[Hg] 75 mm[Hg] Jaki Dos Santos [place] - [facility] - [place] & [place] 3 10:09:06 Social History None recorded. Functional Status None recorded. Mental Status None recorded. Family History Nothing Reported. Medical History No medical history recorded. Gynecological HistoryNo gynecological history recorded. Obstetrics History GPAL:G 0 P 0 0 0 0 Immunizations Vaccine Type Date Status Note Provider Nam e and Address Organization Details Recorded Time Influenza, MDCK, quadrivalent, PF 8 completed Jaki Cowherd null, [place] - [facility] [place] [facility] [place] 12/16/2022 10:09:24 Hep B, adult 1 completed Jaki Cowherd null, [place] - [facility] [place] [facility] [place] 12/16/2022 10:09:24 COVID-19, mRNA, LNP-S, PF, 100 mcg/0.5mL dose or 50 mcg/0.25mL dose 1 completed Jaki Cowherd null, [place] - [facility] [place] & [place] 12/16/2022 10:09:24 pneumococcal polysaccharide PPV23 9 completed Jaki Cowherd null, [place] - [facility] [place] [facility] [place] 12/16/2022 10:09:24 Influenza, recombinant, quadrivalent, PF 2 completed Jaki Cowherd null, [place] - [facility] [place] [facility] [place] 12/16/2022 10:09:24 COVID-19, mRNA, LNP-S, PF, 100 mcg/0.5mL dose or 50 mcg/0.25mL dose 1 completed Jaki Cowherd null, [place] - [facility] [place] [facility] [place] 12/16/2022 10:09:24 Hep B, adult 0 completed Jaki Cowherd null, [place] [facility] [place] [facility] [place] 12/16/2022 10:09:24 Influenza, split virus, quadrivalent, PF 9 completed Jaki Cowherd null, [place] - [facility] [place] [facility] [place] 12/16/2022 10:09:24 Influenza, recombinant, quadrivalent, PF 0 completed Jaki Cowherd null, [place] - [facility] [place] [facility] [place] 12/16/2022 10:09:24 Influenza, split virus, quadrivalent, PF 1 completed Jaki Cowherd null, [place] - [facility] [place] [facility] [place] 12/16/2022 10:09:25 Td (adult), 5 Lf tetanus toxoid, preservative free, adsorbed 7 completed Jaki reina, [facility] & [place] 12/16/2022 10:09:25 COVID-19, mRNA, LNP-S, PF, 100 mcg/0.5mL dose or 50 mcg/0.25mL dose 1 completed [facility] & [place] 12/16/2022 10:09:25 Past Encounters Encounter ID Performer Location Encounter Start Date Encounter Closed Date Diagnosis/Indication Diagnosis SNOMED-CT Code Diagnosis ICD10 Code Diagnosis Note [id number] Bridget Conner DNP, MANAGER BODY-C, DISTILLERY MANAGER [facility] [address] [facility] [address] [place] [address] 12/16/2022 09:57:07 12/16/2022 10:32:29 Cough 70003017 R05.9 Viral syndrome 542272045 B34.9 Health Concerns Section Related Observation LastModified by Organization Detai ls LastModified Time None Recorded Concern Status LastModified by Organization Details LastModified Time None Recorded Advance Directives Directive None Recorded Payers Insurance Date Sequence Insurance Name Policy Number Policy Fonseca Covered Member ID Fonseca Member ID Guarantor Name 01/20/2024 1 [employer] Krissy Chandler [id number] 1 Krissy Chandler 02/04/2024 1 [employer] Krissy Ayalanett [id number] Krissy Chandler 01/20/2024 1 [facility] [place] [id number] Krissy Chandler [id number] Krissy Chandler Notes Date Note Type Note Provider Name and Address Organization Details Recorded Time 12/16/2022 text/html Per patient she started feeling ill yesterday. patient has had body aches, chills, and fever. Patient has not had headache or sore throat. Patient has had nasal congestion and post nasal drip. Patient has had a cough that is worse at night. patient has not had nausea/vomiting or diarrhea. Patient says her daughter and grandaughter had the flu two weeks ago. Bridget Conner DNP, MANAGER BODY-C, DISTILLERY MANAGER [address] [facility], [place], [address], [place] - [facility] [place] & [place] 12/16/2022 10:32:55 OBGyn Episode No OBEpisode recorded.
--- OUTSIDE RECORDS SUMMARY | 2025-05-24 09:34 | XMS_ITS | Clinical Summary ---
Author Organization [facility] Address [address] [place] [address] Care Team Providers Care Supervisor [employer]aning And Anne[employer] Name Role Phone Adolfo Weber MD Primary Care Provider [phone] Allergies No known active allergies Medications ALPRAZolam (Xanax) 0.5 MG tablet TAKE 2 TAB(S) ORALLY EVERY NIGHT NEEDED 90 DAYS 2 Active bisoprolol (Zebeta) 10 MG tablet TAKE 2 TABLETS ORALLY ONCE A DAY 2 Active busPIRone (Buspar) 10 MG tablet TAKE 1 TABLET BY MOUTH TWICE A DAY FOR 90 DAYS 2 Active ergocalciferol 1.25 MG (82545 UT) capsule Take 1 capsule by mouth [...] (2 of 2 - PCV) 03/25/2020 03/25/2019 [id number] Vaccine (4 - season) 2024 08/23/2021, 01/09/2021, [...] to complete this topic Insurance Care Teams Supervisor [employer]aning [employer] Relationship Specialty Start Date End Date Adolfo Weber MD [address] [place] [place] [id number] PCP - General Internal Medicine 09/22/22
--- OUTSIDE RECORDS SUMMARY | 2025-05-24 09:35 | XMS_ITS | Patient Health Record ---
Author Organization [facility] PE D JOHNY Address [address] [place] [address] Care Team Providers Care Wrapper Stripper Name Role Phone Adolfo Weber Primary Care Provider Laly Gunter Unavailable [phone] Migration, Provider Unavailable Unavailable Allergies Allergen (clinical drug ingredient) Drug/Non Drug Allergy documented on EMR Reaction Allergy Type Onset Date Status codeine Codeine stomach upset Drug Allergy Act jordan Results Component Value Reference Range Notes CT Scan : Chest, Lung Cancer Screening Reviewed date:10/11/2024 10:02:40 AM Interpretation: Performing Lab: Notes/Report: Mammogram : Bilateral Reviewed date:09/28/2024 04:29:45 PM Interpretation: Performing Lab: Notes/Report: THYROID PANEL WITH TSH (7444 ) Reviewed date:03/01/2025 02:01:07 PM Interpretation: Performing Lab:CB, [facility] [id number] [facility], [place] HospitalZukeFV[address] Kalin Thakkar Notes/Report: FASTING: NO FASTING:NO NON-FASTING; NON-FASTING; NON-FASTING; NON-FASTING; NON-FAST T3 UPTAKE 27 22-35 % T4 (THYROXINE), TOTAL 7.9 5.1-11.9 mcg/dL FREE T4 INDEX (T7) 2.1 1.4-3.8 TSH 2.64 0.40-4.50 mIU/L LIPID PANEL, STANDARD (7600) Reviewed date:03/01/2025 02:01:07 PM Interpretation: Performing Lab:JANAY [facility] [id number] [facility], [facility] ServicesTgsyVP[address] Kalin Thakkar Notes/Report: NON-FASTING; NON-FASTING; NON-FASTING; NON-FASTING; NON-FAST FASTING:NO FASTING: NO CHOLESTEROL, TOTAL 150 <200 mg/dL HDL CHOLESTEROL 39 > OR = 50 mg/dL TRIGLYCERIDES 216 <150 mg/dL If a non-fasting specimen was collected, consider repeat triglyceride testing on a fasting specimen if clinically indicated. Carmen et al. J. of Clin. Lipidol. 2015;9:129-169. LDL-CHOLESTEROL 80 Reference range: <100 Desirable range <100 mg/dL for primary prevention; <70 mg/dL for patients with CHD or diabetic patients with > or = 2 CHD risk factors. LDL-C is now calculated using the Woo-Yanez calculation, which is a validated novel method providing better accuracy than the Friedewald equation in the estimation of LDL-C. Woo SS et al. HUONG. 2013;310(19): 1709-0655 (http://education.Medopad/faq/RNW258) CHOL/HDLC RATIO 3.8 <5.0 (calc) NON HDL CHOLESTEROL 111 <130 mg/dL (calc) For patients with diabetes plus 1 major ASCVD risk factor, treating to a non-HDL-C goal of <100 mg/dL (LDL-C of <70 mg/dL) is considered a therapeutic option. COMPREHENSIVE METABOLIC [facility] [place] ([address]) Reviewed date:03/01/2025 02:01:07 PM Interpretation: Performing Lab:[facility] Blwv[address] [facility], [facility] ServicesIaljKV[address] Kalin Thakkar Notes/Report: NON-FASTING; NON-FASTING; NON-FASTING; NON-FASTING; NON-FAST FASTING:NO FASTING: NO GLUCOSE 105 65-139 mg/dL Non-fasting reference interval UREA NITROGEN (BUN) 12 7-25 mg/dL CREATININE 0.86 0.50-1.05 mg/dL EGFR 76 > OR = 60 mL/min/1.73m2 BUN/CREATININE RATIO SEE NOTE: 6-22 (calc) Not Reported: BUN and Creatinine are within reference range. SODIUM 141 135-146 mmol/L POTASSIUM 4.5 3.5-5.3 mmol/L CHLORIDE 103 98-110 mmol/L CARBON DIOXIDE 28 20-32 mmol/L CALCIUM 10.4 8.6-10.4 mg/dL PROTEIN, TOTAL 7.6 6.1-8.1 g/dL ALBUMIN 4.4 3.6-5.1 g/dL GLOBULIN 3.2 1.9-3.7 g/dL (calc) ALBUMIN/GLOBULIN RATIO 1.4 1.0-2.5 (calc) BILIRUBIN, TOTAL 0.7 0.2-1.2 mg/dL ALKALINE PHOSPHATASE 128 37-153 U/L AST 15 10-35 U/L ALT 12 6-29 U/L MAGNESIUM (622) Reviewed date:03/01/2025 02:01:08 PM Interpretation: Performing Lab:JANAY [facility] [place], [facility] CenterVjzhEA[address] Kalin Thakkar Notes/Report: NON-FASTING; NON-FASTING; NON-FASTING; NON-FASTING; NON-FAST FASTING:NO FASTING: NO MAGNESIUM 2.2 1.5-2.5 mg/dL CBC (INCLUDES DIFF/PLT) (899 9) Reviewed date:03/01/2025 02:01:08 PM Interpretation: Performing Lab:JANAY [facility] [place], DigiMeldVjjsCB[address] Kalin hTakkar Notes/Report: NON-FASTING; NON-FASTING; NON-FASTING; NON-FASTING; NON-FAST FASTING:NO FASTING: NO WHITE BLOOD CELL COUNT 10.3 3.8-10.8 Thousand/ uL RED BLOOD CELL COUNT 5.30 3.80-5.10 Million/uL HEMOGLOBIN 14.6 11.7-15.5 g/dL HEMATOCRIT 45.5 35.0-45.0 % MCV 85.8 80.0-100.0 fL MCH 27.5 27.0-33.0 pg MCHC 32.1 32.0-36.0 g/dL For adults, a slight decrease in the calculated MCHC value (in the range of 30 to 32 g/dL) is most likely not clinically significant; however, it should be interpreted with caution in correlation with other red cell parameters and the patient's clinical condition. RDW 13.0 11.0-15.0 % PLATELET COUNT 427 140-400 Thousand/uL MPV 10.3 7.5-12.5 fL ABSOLUTE NEUTROPHILS 5923 0425-9545 cells/uL ABSOLUTE LYMPHOCYTES 2771 850-3900 cells/uL ABSOLUTE MONOCYTES 979 200-950 cells/uL ABSOLUTE EOSINOPHILS 546 15-500 cells/uL ABSOLUTE BASOPHILS 82 0-200 cells/uL NEUTROPHILS 57.5 LYMPHOCYTES 26.9 MONOCYTES 9.5 EOSINOPHILS 5.3 BASOPHILS 0.8 VITAMIN D,25-OH,TOTAL,IA (17 306) Reviewed date:03/01/2025 02:01:08 PM Interpretation: Performing Lab:CB, [facility] [address], [place] HospitalZstmPD[address] aKlin Thakkar Notes/Report: NON-FASTING; NON-FASTING; NON-FASTING; NON-FASTING; NON-FAST FASTING:NO FASTING: NO VITAMIN D,25-OH,TOTAL,IA 40 30-100 ng/mL Vitamin D Status 25-OH Vitamin D: Deficiency: <20 ng/mL Insufficiency: 20 - 29 ng/mL Optimal: > or = 30 ng/mL For 25-OH Vitamin D testing on patients on D2-supplementation and patients for whom quantitation of D2 and D3 fractions is required, the QuestAssureD(TM) 25-OH VIT D, (D2,D3), LC/MS/MS is recommended: order code 77351 (patients >2yrs). See Note 1 Note 1 For additional information, please refer to http://education.Rethink Autism/faq/TLX280 (This link is being provided for informational/ educational purposes only.) Reason For Referral No Information Medications Medication SIG (Take, Route, Frequency, Duration) Notes Start Date End Date Status ALPRAZolam 0.5 MG 2 tab(s) orally every night PRN; Duration: 90 days 01/21/2025 Active Losartan Potassium 100 MG 1 tab(s) orally once a day; Duration: 90 day(s) Active Furosemide 40 MG TAKE 1 TABLET BY MOUTH EVERY DAY; Duration: 90 Active Omeprazole 40 MG twice daily; Duration: 90 days Active Atorvastatin Calcium 80 MG 1 tab(s) orally once a day; Duration: 90 Active Magnesium Oxide 500 MG 1 TAB ORALLY ONCE A DAY *Please review and pick correct strength-formulatio n from Med[employer]pan options. If intended option is not shown, discontinue and re-order from Quick Search* Active busPIRone HCl 10 MG TAKE 1 TABLET BY MOUTH TWICE A DAY FOR 90 DAYS; Duration: 90 Active Metoprolol Succinate ER 50 MG 1 TAB(S) ORALLY ONCE A DAY *Please review and pick correct strength-formulatio n from [employer] options. If intended option is not shown, discontinue and re-order from Quick Search* Active Trelegy Ellipta 100-62.5-25 MCG/ACT INHALE 1 PUFF ONCE DAILY; Duration: 30 Active Combivent Respimat 20-100 MCG/ACT 1 INH inhaled 4 times a day; Duration: 30 days Active Klor-Con M20 20 MEQ TAKE 1 TABLET BY MOUTH EVERY DAY; Duration: 90 Active Immunizations Vaccine Route Administration Date Status Comme nts Tenivac (Td) 7 + yrs IM Intramuscular 03/06/2017 Administe red SHINGRIX IM Intramuscular 08/30/2024 Administered Pneumovax 23 IM Intramuscular 03/25/2019 Administered MMR-ll SC Subcutaneous 07/24/2008 Administered Fluzone High Dose IM Intramuscular 09/16/2023 Administered Flublok IM Intramuscular 09/08/2022 Administered Flublok IM Intramuscular 08/30/2024 Administered Adacel (Tdap) IM Intramuscular 07/24/2008 Administered Social History Tobacco Use: Social History Observation Description Date Details (start date - stop date) Former Smoker NA - NA Smoking: Question Answer Notes Are you a: former smoker How long has it been since you last smoked? 1-5 years Problems Problem Type SNOMED Code ICD Code Onset Dates Problem Status W/U Status Risk Notes Problem Generalized anxiety disorder (65149583) Generalized anxiety disorder (F41.1) Active confirmed Problem Allergic rhinitis caused by pollen (disorder) (60889398) Allergic rhinitis due to pollen (J30.1) Active confirmed Problem Palpitations (01448775) Palpitations (R00.2) Active confirmed Problem Hypothyroid (37108677) Hypothyroid (E03.9) Active confirmed Problem Vitamin D deficiency (89166354) Vitamin D deficiency (E55.9) Active confirmed Problem Tobacco use (204036430) Tobacco use disorder (Z72.0) Active confirmed Problem Hyperlipidemia (84611530) Hyperlipidemia (E78.5) Active confirmed Problem Gastroesophageal reflux disease (981963325) GERD without esophagitis (K21.9) Active confirmed Problem Essential hypertension (20389811) Hypertension, essential (I10) Active confirmed Problem Acute exacerbation of chronic obstructive airways disease (454075530) COPD exacerbation (J44.1) Active confirmed Problem Obstructive sleep apnea (73202868) Obstructive sleep apnea (G47.33) Active confirmed Problem Obesity (467566205) Obesity (BMI 35.0-39.9 without comorbidity) (E66.9) Active confirmed Problem Raynaud's disease (666873290) Raynaud's phenomenon without gangrene (I73.00) Active confirmed Problem Gastroesophageal reflux disease with esophagitis (disorder) (986193179) Gastroesophageal reflux disease with esophagitis without hemorrhage (K21.00) Active confirmed Problem COPD with chroni c bronchitis (J44.89) Active confirmed Problem History of hysterectomy (648403812) S/P hysterectomy (Z90.710) Active confirmed Vital Signs Heart Rate 72 /min 02/28/2025 Temperature 98.1 degrees Fahrenheit 02/28/2025 Blood pressure diastolic 90 mm Hg 02/28/2025 Height 5 ft 11 in in 02/28/2025 Blood pressure systolic 122 mm Hg 02/28/2025 Weight 239 lbs 02/28/2025 BMI 33.33 kg/m2 02/28/2025 Encounters Encounter Location Date Provider Diagnosis [facility] [address] [facility] [address] [place] [address] 09/28/2024 Adolfo Besson [facility] [address] [address] 10/21/2024 Adolfo Besson [facility] [address] [facility] [address] [place] [address] 11/28/2024 Adolfo Besson [facility] [address] [address] 02/28/2025 Adolfo Besson [facility] [address] [address] 10/26/2024 Laly Gunter Acute bronchitis, unspecified organism J20.9 [facility] [address] [place] [address] 02/28/2025 Adolfo Besson Hypertension, essential I10 ; Hypothyroid E03.9 ; Hyperlipidemia E78.5 ; Vitamin D deficiency E55.9 ; Palpitations R00.2 ; COPD with chronic bronchitis J44.89 and Encounter for immunization Z23 [facility] [address] [address] 06/21/2024 Adolfo Weber Hypertension, essential I10 and Palpitations R00.2 [facility] [address] [address] 08/30/2024 Adolfo Weber Hypertension, essential I10 ; Generalized anxiety disorder F41.1 ; Raynaud's phenomenon without gangrene I73.00 ; Encounter for immunization Z23 ; Hypothyroid E03.9 ; Palpitations R00.2 ; Obstructive sleep apnea G47.33 ; Personal history of nicotine dependence Z87.891 ; History of mammography, screening Z92.89 ; Short-term memory loss R41.3 ; Routine medical exam Z00.00 and Immunization(s) administered Z23 [facility] [address] [facility] [address] [place] [address] 03/04/2025 Provider Migration COPD with chronic bronchitis J44.89 Assessments Encounter Date Diagnosis (ICD Code) Assessment Notes Treatment Notes Treatment Clinical Notes Section Notes 06/21/2024 Palpitations (ICD-10 - R00.2) One half dose beta-ibeth daily. EKG reassuring. If has palpitations through beta-ibeth would consider event recorder 06/21/2024 Hypertension, essential (ICD-10 - I10) EKG reveal sinus rhythm. Patient is experiencing symtpoms without the bisoprolol that are affecting her daily life. BP and symptoms are well controlled on lower dose of bisoprolol dose, will continue 2.5 mg Bisoprolol dose QD. Follow-up in July scheduled to evaluate symptom and BP progression. 08/30/2024 Generalized anxiety disorder (ICD-10 - F41.1) Remains on as needed low-dose Xanax. No changes 08/30/2024 Hypertension, essential (ICD-10 - I10) Blood pressures under excellent control. No changes in plan. 10/26/2024 Acute bronchitis, unspecified organism (ICD-10 - J20.9) I personally will review final sputum culture results once resulted and sent to me. Discussed the etiology and expected course of bronchitis and covering for pna with R lung crackles. Continue nebs, start Levofloxacin. At patient request sent Diflucan if she develops vaginal yeast symptoms. Refilled inhaler at patient request. Discussed the rationale for antibiotic and the importance of completing the prescription as prescribed. Continue supportive care with PRN antipyretics, OTC cough/cold meds, nasal saline rinses/Neti pot with distilled water, salt water gargles, cough drops, and humidifier. Encourage PO hydration. Discussed the signs and symptoms of worsening infection/respira tory distress that may indicate need for reassessment in clinic/ED. Keep previously scheduled physical exam or f/u sooner PRN. Patient voices understanding and agree to this plan. Patient discussed with Attending Dr. Weber who agrees with the plan of care above. 02/28/2025 Hypothyroid (ICD-10 - E03.9) 02/28/2025 Hypertension, essential (ICD-10 - I10) Well controlled on current regimen, continue as prescribed. 08/30/2024 Raynaud's phenomenon without gangrene (ICD-10 - I73.00) Recommended starting aspirin low-dose. If this does not work especially in the cold weather would consider low-dose diltiazem. Discussed environmental help to help with warming and circulation efforts 02/28/2025 Hyperlipidemia (ICD-10 - E78.5) 02/28/2025 Vitamin D deficiency (ICD-10 - E55.9) Rechecking Vitamin D today. 08/30/2024 Encounter for immunization (ICD-10 - Z23) 08/30/2024 Hypothyroid (ICD-10 - E03.9) Clinically euthyroid. Has had labs over the summer. No changes in plan 02/28/2025 Palpitations (ICD-10 - R00.2) Continue metoprolol 50 mg, may switch to taking at night to see if that improves daytime fatigue. 08/30/2024 Palpitations (ICD-10 - R00.2) Resolved with beta-ibeth 02/28/2025 COPD with chronic bronchitis (ICD-10 - J44.89) Refills for combivent inhaler sent today. 03/04/2025 COPD with chronic bronchitis (ICD-10 - J44.89) 02/28/2025 Encounter for immunization (ICD-10 - Z23) 08/30/2024 Obstructive sleep apnea (ICD-10 - G47.33) Doing well with CPAP. Recommend to discontinue 08/30/2024 Personal history of nicotine dependence (ICD-10 - Z87.891) Has not smoked for 5 years, still in a range to do low-dose CT scans, this will be scheduled 08/30/2024 History of mammography, screening (ICD-10 - Z92.89) 08/30/2024 Short-term memory loss (ICD-10 - R41.3) MoCA testing done, patient scored 28/30. GDS score 13/15. No evidence of dementia. Patient's neurologic exam including gait is normal, patient reassured. Discussed lifestyle modifications-mos t of which she is already done, to help with neurologic and memory retention. 08/30/2024 Routine medical exam (ICD-10 - Z00.00) Up-to-date with cancer screening. Up-to-date with vaccines. Shingrix series begun today. Otherwise no changes in plan. 08/30/2024 Immunization(s) administered (ICD-10 - Z23) 02/28/2025 Other HCM: Shringrix vaccine called into pharmacy. Plan Of Treatment Pending Test Test Name Order Date Ultrasound : Leg, Left 01/18/2007 Ultrasound : Breast, Right 06/20/2011 MRI : Ankle, Left 10/29/2017 Physical Therapy 10/05/2017 Physical Therapy 06/29/2017 Doppler: Venous, L Lower Extremity 10/29 Mammogram : Bilateral 11/26/2010 Mammogram : Bilateral 09/16/2023 Mammogram : Bilateral 12/06/2014 Occupational Therapy : Eval & Treatment 06/29/2017 Holter Monitor, 48 hour 08/19/2019 H-CBC with AUTO DIFF 10/29/2009 H-CBC with AUTO DIFF 11/10/2011 H-CBC with AUTO DIFF 09/01/2013 H-CBC with AUTO DIFF 06/08/2012 H-CBC with AUTO DIFF 05/20/2013 H-CBC with AUTO DIFF 05/13/2011 H-VITAMIN B12 06/08/2012 H-CMP 07/16/2015 H-CMP 05/13/2011 H-CMP 05/20/2013 H-CMP 10/29/2009 H-CMP 06/08/2012 H-CMP 09/01/2013 H-CMP 11/10/2011 H-LIPID PANEL 11/10/2011 H-LIPID PANEL 09/01/2013 H-LIPID PANEL 10/29/2009 H-LIPID PANEL 05/20/2013 H-LIPID PANEL 05/13/2011 H-LIPID PANEL 07/16/2015 H-LIPID PANEL 06/08/2012 H-AMYLASE 09/01/2013 H-TSH 06/08/2012 H-TSH 11/10/2011 H-TSH 10/29/2009 H-TSH 05/20/2013 H-VIT D, 1,25-HYDROXY 06/08/2012 H-URINALYSIS 10/29/2009 C-CMP 12/07/2020 C-MAGNESIUM 12/07/2020 Comp. Metabolic Panel (14) 05/09/2022 TSH 05/25/2020 CBC With Differential/Platelet 0 CBC With Differential/Platelet 1 Lipid Panel 05/25/2020 Magnesium, Serum 04/01/2021 Magnesium, Serum 05/09/2022 Magnesium, Serum 05/25/2020 Doppler: Duplex Renal Artery 05/01/2020 M-Sputum Culture & Gram Stain 10/26/2024 CT Scan : Chest, Lung Cancer Screening 1 CT Scan : Abdomen and Pelvis with Oral a nd IV Contrast 01/09/2024 Next Appt Details Provider Name:Adolfo Rao Tia, 09/05/2025 10:15:00 AM, [address] [place] [address], [phone], Insurance Providers Payer Name Payer Address Payer Phone Subscriber Number Group Number Insured Name Patient Relationship to Insured Coverage Start Date Coverage End Date [facility] [address] [place] [address] [id number] Krissy Chandler Self - patient is the insured Medications Administered Medication Instructions Date of Administration Dosage Notes Kenalog 40mg 06/18/2017 40 mg Kenalog 40mg 11/24/2017 40 mg Triamcinolone Acetonide 40mg Injection 02/25/2019 1 mL Triamcinolone Acetonide 40mg Injection 04/09/2019 1 mL Triamcinolone Acetonide 40mg Injection 04/20/2020 1 mL Kenalog 12/08/2016 1 mL Medical (General) History Medical History History ICD Code hypertension depression/anxiety hypercholesterolemia gerd hormone replacement therapy EGD 04/19 with reactive GERD Colonoscopy 04/19 with multiple hyperplas tic and serrated adenoma polyps Moderate VARGHESE - on CPAP Dexa 09/20 with osteopenia = alendronate started LDCT 09/20 with nodules - Bi rads 2 - repeat one year - repeated 10/23 with no changes Normal mammogram 09/22 Basal Cell Carcinoma removed from Rt Ear 09/2024 Surgical History Surgery Date(Month/Year) hysterectomy T&A appendetomy Basal Cell Carcinoma 09/2024 Hospitalization History Reason Date(Month/Year) hypokalemia 11/2020 Pneumonia 02/2019
--- NOTE | 2025-05-24 10:00 | CA_ITS ---
APPROVED REPORT EXAM: Comprehensive 2D, Doppler, and color-flow Echocardiogram Stud Sheep Farmer: BRAIN [place], RVS Ht: 5 ft 11 in Wt: 240lbs BSA: 2.28 BP: 153/95 mmHg Indications: Palpitations, HTN, HLD, Ex-smoker 2D Dimensions Left Atrium 4.37 cm F: 2.7 - 3.8 LA Volume 74.90 mL LA Volume Index 32.277076 mL/m2 (M/F) 16-34 M-Mode Dimensions RVDd 2.90 cm (0.9-2.6) LA Diam 4.13 cm (1.9-4.0) LVDd 5.80 cm (3.5-5.7) LVDs 3.79 cm (3.5-5.7) IVSd 1.16 cm (0.6-1.1) PWd 1.20 cm (0.6-1.1) EF (Teich) 63.00% EPSs 0.76 cm FS 34.70% EDV (Teich) 166.60 mL TAPSE 2.33 (<1.7) ESV (Teich) 61.60 mL LV Diastology E Decel Time 290 (160-240 msec) E/A Ratio 0.77 MED A' 8.20 cm/s LAT A' 11.70 cm/s Aortic Valve PABLO Index 1.48 cm2/m2 AoV Peak Solis. 120.0 (50-130 cm/s) AO Peak GR. 5.80 mmHg AO Mean GR. 2.90 (<5 mmHg) AO VTI 22.1 (18-25 cm) PABLO (VTI) 3.46 (2.5-4.5 cm2) Mitral Valve MV A Velocity 63.0 (40-130 cm/s) E/A Ratio 0.77 Tricuspid Valve TR P. Velocity 220.00 cm/s Left Ventricle The left ventricle is normal size. The left ventricular systolic function is normal. The left ventricular ejection fraction is within the normal range. There is increased LV wall thickness. There is normal LV segmental wall motion. Transmitral Doppler flow pattern suggests impaired LV relaxation. LVEF is 55%. Right Ventricle The right ventricle is normal size. The right ventricular systolic function is normal. Atria The left atrium is mildly dilated. The right atrium size is normal. There is no Doppler evidence of interatrial shunt. Aortic Valve Aortic valve is mildly thickened. There is no aortic valvular stenosis. No aortic regurgitation is present. Mitral Valve The mitral valve is normal in structure. No evidence of mitral valve stenosis. Mild mitral regurgitation. Tricuspid Valve Tricuspid valve is grossly normal in structure and function. Trace tricuspid regurgitation. There is insufficient TR jet to estimate RVSP. Pulmonic Valve The pulmonary valve is normal in structure. Trace pulmonic regurgitation. Great Vessels The aortic root is normal in size. IVC is normal in size and collapses >50% with inspiration. Pericardium There is no pericardial effusion. Other Information Study Quality: Adequate Conclusion Normal biventricular systolic function. Mild LA dilation. Mild MR. Electronically signed by : Francie Suero MD 05/24/2025 15:15:17
== END 2025-05-24 23:59 | disposition home or self-care (01) ==
LOC: RT 09:31
PROVIDERS: PCP Internal Medicine Adolescent Medicine; Visit Provider Nurse Practitioner
DX: I34.0 Nonrheumatic mitral (valve) insufficiency (principal); I11.9 Hypertensive heart disease without heart failure; E78.5 Hyperlipidemia, unspecified; Z87.891 Personal history of nicotine dependence
CPT/HCPCS: 93306

== ENCOUNTER 2025-06-06 08:08 | Day surgery (SDC) | payer OTHER, SELFPAY ==
[2025-05-19 14:36] VITALS: BMI 32.1
[2025-06-06 08:25] VITALS: BP 156/103; PULSE 83; RESP 17; TEMP 36.3; O2SAT 97
[2025-06-06] MEDS: PHENYLEPHRINE 2.5% OPHTH SOLN 2ML OP (08:31)
[2025-06-06] MEDS: CYCLOPENTOLATE 2% OPHTH SOLN 2ML BOTTLE OP (08:31)
[2025-06-06] MEDS: TETRACAINE 0.5% OPTH SOL 15ML OP (08:31)
[2025-06-06 09:05] VITALS: BP 144/79; PULSE 74; RESP 16; TEMP 36.7; O2SAT 97
[2025-06-06] MEDS: SODIUM CHLORIDE 0.9% 10ML FLUSH SYRINGE 10 ML IV (09:05)
[2025-06-06] MEDS: MIDAZOLAM 2MG/2ML VIAL 1 MG IV (09:05)
[2025-06-06 09:10] VITALS: BP 132/72; PULSE 73; RESP 16; TEMP 36.7; O2SAT 99
[2025-06-06] MEDS: TIMOLOL 0.5% OPTH SOLN 5ML OP (09:12)
[2025-06-06] MEDS: TOBRAMYCIN/DEX OPTH SUSP 2.5ML OP (09:12)
[2025-06-06] MEDS: LIDOCAINE 1% PF 2ML VIAL 2 ML IJ (09:13)
[2025-06-06 09:15] VITALS: BP 147/76; PULSE 73; RESP 16; TEMP 36.7; O2SAT 96
[2025-06-06 09:20] VITALS: BP 136/77; PULSE 68; RESP 16; TEMP 36.7; O2SAT 95
[2025-06-06 09:24] VITALS: BP 158/91; PULSE 75; RESP 18; TEMP 36.4; O2SAT 98
--- NOTE | 2025-06-06 11:05 | P.PCN_ITS ---
[facility] Procedure Note Date: 06/06/25 Time: 11:05 Procedure Note:: Preoperative Diagnosis: Cataract combined NS Cortical Complex [Left] Eye Postop diagnosis: same Operation: Microscopic phacoemulsification with intraocular lens implant [Left] Eye Specimen: None Blood Loss: None The patient was examined in the office with a complaint of poor vision in the [left] eye. The patient reports that this interferes with ADLs such as reading, watching TV and/or driving or the vision is like looking through a foggy haze and is very troubling. The patient was examined and found to have a visually significant cataract with best corrected vision of [20/400] by refraction and/or glare testing. Treatment options, risks and benefits were explained and the patient elected to have cataract surgery in an attempt to improve their vision. The patient had the eye anesthetized with topical tetracaine, the eye ways prepped and draped in the usual fashion for cataract surgery. A paracentesis and a temporal keratotomy were made. 0.2cc of 1% lidocaine PF was placed into the anterior chamber. And aqueous/viscoelastic exchange was done and a 360 degree capsulorexis was performed. Through hydrodissection and delineation with BSS on a cannula was done. The lens nucleus was phecoemulsified with CDE of [7.32]. Residual cortical material was removed using automated I&A The capsular bag was deepened with viscoelastica and a PCIOL was placed in the capsular bag with good centration and stability. Residual viscoelastic was removed using automated I&A. The keratotomy incision was hydrated with BSS on a cannula. The wound were checked and found to be water tight. IOP was checked digitally and adjusted as needed so as not to be too high. 1 drop of timolol 0.5%, ofloxacin, prednisolone acetate and ketorolac was instilled and eye shield taped over the eye. The patient was taken to recovery in good condition and will be seen postoperatively.
== END 2025-06-06 09:34 | disposition home or self-care (01) ==
PROVIDERS: PCP Internal Medicine Adolescent Medicine; Visit Provider Ophthalmology
PROC: (CPT 66984; principal; 2025-06-06 09:30)
DX: H25.812 Combined forms of age-related cataract, left eye (principal); M19.90 Unspecified osteoarthritis, unspecified site; I10 Essential (primary) hypertension; E78.00 Pure hypercholesterolemia, unspecified; J45.909 Unspecified asthma, uncomplicated; F41.9 Anxiety disorder, unspecified; Z87.891 Personal history of nicotine dependence; Z88.5 Allergy status to narcotic agent; Z79.82 Long term (current) use of aspirin; Z79.899 Other long term (current) drug therapy; Z79.51 Long term (current) use of inhaled steroids
CPT/HCPCS: 66984; J2250; V2632

== ENCOUNTER 2025-06-20 08:05 | Day surgery (SDC) | payer OTHER, SELFPAY ==
[2025-06-19 10:05] VITALS: BMI 32.8
[2025-06-20] MEDS: CYCLOPENTOLATE 2% OPHTH SOLN 2ML BOTTLE OP ×3 (08:30→08:40)
[2025-06-20] MEDS: TETRACAINE 0.5% OPTH SOL 15ML OP ×3 (08:30→08:40)
[2025-06-20] MEDS: PHENYLEPHRINE 2.5% OPHTH SOLN 2ML OP ×3 (08:30→08:40)
[2025-06-20 08:33] VITALS: BP 136/89; PULSE 70; RESP 20; TEMP 36.6; O2SAT 97
[2025-06-20 09:28] VITALS: BP 158/72; PULSE 71; RESP 16; TEMP 36.6; O2SAT 98
[2025-06-20] MEDS: MIDAZOLAM 2MG/2ML VIAL 1 MG IV (09:28)
[2025-06-20] MEDS: TIMOLOL 0.5% OPTH SOLN 5ML OP (09:28)
[2025-06-20 09:33] VITALS: BP 143/69; PULSE 66; RESP 16; TEMP 36.6; O2SAT 98
[2025-06-20 09:38] VITALS: BP 132/74; PULSE 67; RESP 16; TEMP 36.6; O2SAT 98
[2025-06-20] MEDS: SODIUM CHLORIDE 0.9% 10ML FLUSH SYRINGE 10 ML IV (09:38)
[2025-06-20] MEDS: TOBRAMYCIN/DEX OPTH SUSP 2.5ML OP (09:38)
[2025-06-20] MEDS: LIDOCAINE 1% PF 2ML VIAL 2 ML IJ (09:38)
[2025-06-20 09:43] VITALS: BP 123/68; PULSE 67; RESP 16; TEMP 36.6; O2SAT 97
[2025-06-20 09:46] VITALS: BP 129/74; PULSE 70; RESP 17; TEMP 36.1; O2SAT 98
--- NOTE | 2025-06-20 11:39 | P.PCN_ITS ---
[facility] Procedure Note Date: 06/20/25 Time: 11:39 Procedure Note:: Preoperative Diagnosis: Cataract combined NS Cortical Complex [Right] Eye Postop diagnosis: same Operation: Microscopic phacoemulsification with intraocular lens implant [Right] Eye Specimen: None Blood Loss: None The patient was examined in the office with a complaint of poor vision in the [right] eye. The patient reports that this interferes with ADLs such as reading, watching TV and/or driving or the vision is like looking through a foggy haze and is very troubling. The patient was examined and found to have a visually significant cataract with best corrected vision of [20/400] by refraction and/or glare testing. Treatment options, risks and benefits were explained and the patient elected to have cataract surgery in an attempt to improve their vision. The patient had the eye anesthetized with topical tetracaine, the eye ways prepped and draped in the usual fashion for cataract surgery. A paracentesis and a temporal keratotomy were made. 0.2cc of 1% lidocaine PF was placed into the anterior chamber. And aqueous/viscoelastic exchange was done and a 360 degree capsulorexis was performed. Through hydrodissection and delineation with BSS on a cannula was done. The lens nucleus was phecoemulsified with CDE of [8.09]. Residual cortical material was removed using automated I&A The capsular bag was deepened with viscoelastica and a PCIOL was placed in the capsular bag with good centration and stability. Residual viscoelastic was removed using automated I&A. The keratotomy incision was hydrated with BSS on a cannula. The wound were checked and found to be water tight. IOP was checked digitally and adjusted as needed so as not to be too high. 1 drop of timolol 0.5%, ofloxacin, prednisolone acetate and ketorolac was instilled and eye shield taped over the eye. The patient was taken to recovery in good condition and will be seen postoperatively.
== END 2025-06-20 09:57 | disposition home or self-care (01) ==
PROVIDERS: PCP Internal Medicine Adolescent Medicine; Visit Provider Ophthalmology
PROC: (CPT 66984; principal; 2025-06-20 10:00)
DX: H25.811 Combined forms of age-related cataract, right eye (principal); F41.9 Anxiety disorder, unspecified; M19.90 Unspecified osteoarthritis, unspecified site; E78.00 Pure hypercholesterolemia, unspecified; J45.909 Unspecified asthma, uncomplicated; I10 Essential (primary) hypertension; Z87.891 Personal history of nicotine dependence; Z88.5 Allergy status to narcotic agent; Z79.82 Long term (current) use of aspirin; Z79.899 Other long term (current) drug therapy; Z79.51 Long term (current) use of inhaled steroids; Z96.1 Presence of intraocular lens
CPT/HCPCS: 66984; J2250; V2632

== ENCOUNTER 2025-09-25 09:08 | Outpatient (CLI) | payer OTHER, SELFPAY ==
--- OUTSIDE RECORDS SUMMARY | 2025-09-05 06:15 | XMS_ITS ---
Author Organization [facility] Address [address] [place] [address] Care Team Providers Care Logistic Specialist Name Role Phone Adolfo Weber Primary Care Provider REASON FOR VISIT 6 month ck Encounters Encounter Location Date Provider Diagnosis [facility] [address] [address] 09/05/2025 Adolfo Weber Plan Of Treatment Next Appt Details Provider Name:Adolfo Weber, 10/05/2025 10:00:00 AM, [address] [place] [address], [phone], Progress Notes * Krissy CHANDLERDOB:1965 (60 yo F)Acc No.[id number]:09/05/2025 Progress Notes Patient: Krissy KINGSTON Provider: Britany Weber MD :1965 A ge:60 Y S ex:Female Date:09/05/2025 Address:[address], [address], [place], [place]-[address] Subjective: * Chief Complaints: * 1 . 6 month ck. * Medical History: Objective: * Vitals: Assessment: Plan: * Treatment: * * Electronic signature of Jose Weber MD FAAP on 09/25/2025 at 09:19 AM EDT Sign off status: Pending * Provider: Britany Weber MD Date: 1 Generated for Fatmata villalba/Eugenio/Demi on: 09:19 AM EDT
--- NOTE | 2025-09-25 09:10 | XR_ITS ---
FINAL REPORT CLINICAL HISTORY: SCREENING COMPARISON: 09/19/2022 FINDINGS: Using L1-4, the bone mineral density of the spine is 1.051 g/cm2, corresponding to T-score of 0.0, within normal limits. Previously was 1.076 with a T-score of 0.3. Using the left hip, the bone mineral density of the femoral neck is 0.742 g/cm2, corresponding to a T-score of -1.0, within normal limits. Previously was 0.777 with a T-score of -0.7. Using the right hip, the bone mineral density of the femoral neck is 0.738 g/cm2, corresponding to a T-score of -1.0, within normal limits. Previously was 0.720 with a T-score of -1.2. FRAX not reported because all T-scores at or above-1.0. NOTE: T-score: Standard deviation compared with peak bone mass of young adult mean. *Following the recommendations of the International Society of Bone densitometry, classification of hip BMD is based on the lower of two T-scores; total hip or femoral neck. IMPRESSION: Normal bone mineral density of the lumbar spine and hips. Reviewed, Interpreted and Dictated by Alberto Reina MD Transcribed by Ros Merrill Authenticated and [facility]
--- NOTE | 2025-09-25 09:11 | CT_ITS ---
FINAL REPORT CLINICAL HISTORY: SCREENING. former smoker quit 6years ago. 1ppd for 35 years COMPARISON: 09/18/2024 FINDINGS: CTDI vol (mGy): 2.90 DLP: 114.[address] images of the chest were obtained using the low-dose protocol for screening. There is no evidence of mediastinal or hilar mass or adenopathy. No axillary mass or adenopathy is identified. On the lung window images, nodular density in the medial right upper lobe measuring 4 mm on image 27 of series 3 is stable. 5 mm right lower lobe nodule on image 51 of series 3 is also stable. Density along the minor fissure is unchanged but seen on image 51 of series 3 likely related to scarring. There is also mild right middle lobe and lingular scarring. IMPRESSION: Stable pulmonary nodules. Lung RADS category 2. Recommend 12 month followup low-dose CT for further evaluation. Reviewed, Interpreted and Dictated by Alberto Reina MD Transcribed by Gabby Goyal Authenticated and . [facility]
--- OUTSIDE RECORDS SUMMARY | 2025-09-25 09:19 | XMS_ITS | Clinical Summary ---
Author Organization [facility] Address [address] [place] [address] Care Team Providers Care Laborer Golf Course Name Role Phone Adolfo Weber MD Primary Care Provider + [phone] Allergies Active Allergy Reactions Criticality Noted Date Comments Codeine GI Intolerance Low 02/25/2024 Medications ALPRAZolam (XANAX) 0.5 MG tablet Take 2 tablets by mouth Every Night. Active potassium chloride (K-DUR,KLOR-CON ) 20 MEQ CR tablet Take 1 tablet by mouth Daily. 90 tablet 3 10/05/2018 Active Ipratropium-Alb uterol (COMBIVENT IN) 04/23/2015 Acti ve furosemide (LASIX) 40 MG tablet Take 1 tablet by mouth Daily. 12/14/2020 Active busPIRone (BUSPAR) 10 MG tablet Take 1 tablet by mouth 2 (Two) Times a Day. 04/23/2021 Active atorvastatin (LIPITOR) 80 MG tablet Take 1 tablet by mouth Every Night. 04/23/2015 Active losartan (COZAAR) 100 MG tablet Take 1 tablet by mouth Daily. 12/14/2020 Active Magnesium Oxide, Antacid, 500 MG capsule 500 mg 2 (Two) Times a Day. Active omeprazole (priLOSEC) 40 MG capsule Take 1 capsule by mouth 2 (Two) Times a Day. Active Trelegy Ellipta 100-62.5-25 MCG/ACT inhaler Inhale 1 puff Daily. 05/26/2024 Active Aspirin Low Dose 81 MG EC tablet Take 1 tablet by mouth Daily. Active metoprolol tartrate (LOPRESSOR) 50 MG tablet Take 1 tablet by mouth Daily. Active metoprolol succinate XL (TOPROL-XL) 25 MG 24 hr tablet Take 1 tablet by mouth Every 12 (Twelve) Hours. 04/09/2025 Active Active Problems Problem Noted Date Diagnosed Date Arthralgia of right knee 12/09/2024 Chest pain 11/02/2024 Hypercalcemia 11/02/2024 Hypomagnesemia 11/02/2024 PAC (premature atrial contraction) 11/02/2024 Palpitations 11/02/2024 PVC (premature ventricular contraction) 11/02/20 SVT (supraventricular tachycardia) 11/02/2024 CAP (community acquired pneumonia) 06/16/2024 Dizziness, nonspecific 06/16/2024 Hypertension 06/16/2024 Hypokalemia 06/16/2024 Obesity, Class II, BMI 35-39.9 06/16/2024 Upper abdominal pain 06/16/2024 Anxiety 02/25/2024 Arthritis 02/25/2024 Asthma 02/25/[address] scan 02/25/2024 Hx of colonic polyps 02/25/2024 Dysphonia 10/20/2022 Arthralgia of knee 12/01/2017 Immunizations Immunization Administration Dates Next Due Flublok 18+yrs 08/30/2024,09/08/2022,10/02/2020 Hepatitis B Adult/Adolescent IM 01/24/2011,06/24 Family History Medical History Relation Name Comments Deep vein thrombosis Father Hypertension Father Hypertension Mother Relation Name Status Comments Father Mother Social History Tobacco Use Types Packs/Day Years Used Date Smoking Tobacco: Former Cigarettes Smokeless Tobacco: Never Tobacco Cessation:Counseling Given: Not Answered Comments:Quit 2018 28 yr 1 ppd Alcohol Use Standard Drinks/Week Comments No 0 (1 standard drink = 0.6 oz pur e alcohol) Abuse Screen Answer Date Recorded Feels Unsafe at Home or Work/School no 04/05/2024 Feels Threatened by Someone no 05/2024 Does Anyone Try to Keep You From Having Contact with Others or Doing Things Outside Your Home? no 04/05/2024 Physical Signs of Abuse Present no 04/05/2024 Comments Unknown Sex and Gender Information Value Date Recorded Sex Assigned at Female 04/27/2025 8:35 AM EDT Legal Sex Female 10:29 AM EDT Gender Identity Not on file Sexual Orientation Not on file Last Filed Vital Signs Vital Sign Reading Time Taken Comments Blood Pressure 149/90 05/03/2025 12:08 PM EDT Pulse 62 05/03/2025 12:08 PM EDT Temperature 36.4 C (97.5 F) 04/13/2024 2:37 PM EDT Respiratory Rate 16 04/13/2024 2:37 PM EDT Oxygen Saturation 98% 11/02/2024 11:04 AM EST Inhaled Oxygen Concentration - - Weight 109 kg (241 lb) 05/03/2025 12:08 PM EDT Height 180.3 cm (5' 11 ) 05/03/2025 12:08 PM EDT Body Mass Index 33.61 05/03/2025 12:08 PM EDT Plan of Treatment Upcoming Encounters Date Type Department Care Team (Late st Contact Info) Description 10/23/2025 8:30 AM EST Appointment [facility] [place] [address] [place] [id number] 10/31/2025 10:15 AM EST Office Visit [facility] [address] [facility] [address] [place] [address] Shayy Schulz, [place] [address] [facility] [address] [place] [address] Health Maintenance Due Date Last Done Comments Annual Gynecologic Pelvic an d Breast Exam 1965 MAMMOGRAM 2003 COLOGUARD 02/04/2008 COLON CANCER SCREENING 5 YEA R SIGMOIDOSCOPY 02/04/2008 CT COLONOGRAPHY 02/04/2008 FECAL OCCULT BLOOD TEST 02/04/2008 FIT Testing (1 year) 02/04/2008 Hepatitis B (3 of 3 - Risk 3 -dose series) 03/21/2011 01/24/2011, 06/24/2010 ANNUAL PHYSICAL 04/20/2018 HEPATITIS C SCREENING 04/20/2018 Pneumococcal Vaccine 50+ (2 of 2 - PCV) 03/25/2020 03/25/2019 INFLUENZA VACCINE 06/30/2025 08/30/2024, , 09/08/2022, Additional history exists COLONOSCOPY 04/13/2034 04/13/2024, 03/30, 04/13/2024 COLORECTAL CANCER SCREENING 04/13/2034 TDAP/TD VACCINES (3 - Td or Tdap) 09/05/2034 024, 03/06/2017 ZOSTER VACCINE Completed 02/28/2025, 08/30/2024 Procedures Procedure Name Priority Date/Time Associated Diagnosis Comments COLONOSCOPY 04/13/2024 1:01 PM EDT from Last 3 Months or Most Recently Relevant to Health Maintenance Insurance [facility] Care Teams Laborer Golf Course Relationship Specialty Start Date End Date Adolfo Weber MD [address] [facility] [address] [place] [address] PCP - General Adolescent Medicine 04/15/18
--- OUTSIDE RECORDS SUMMARY | 2025-09-25 09:19 | XMS_ITS | Clinical Summary ---
Author Organization [facility] Address [address] [place] [address] Care Team Providers Care Legal Support Assistant Name Role Phone Adolfo Weber MD Primary Care Provider [phone] Allergies No known active allergies Medications ALPRAZolam (Xanax) 0.5 MG tablet TAKE 2 TAB(S) ORALLY EVERY NIGHT NEEDED 90 DAYS 2 Active bisoprolol (Zebeta) 10 MG tablet TAKE 2 TABLETS ORALLY ONCE A DAY 2 Active busPIRone (Buspar) 10 MG tablet TAKE 1 TABLET BY MOUTH TWICE A DAY FOR 90 DAYS 2 Active ergocalciferol 1.25 MG (00622 UT) capsule Take 1 capsule by mouth [...] (one) time each day. Active Active Problems No known active problems Resolved Problems Problem Noted Date Diagnosed Date Resolved Date Dysphonia 10/20/2022 08/20/2025 Social History Tobacco Use Types Packs/Day Years [...] (2 of 2 - PCV) 03/25/2020 03/25/2019 [id number]-35 Vaccine ( season) 2025 08/23/2021, 01/09/2021, 12/12/2020 [facility]-Influenza Vaccine (#1) 07/31/202509/08, 09/10/2021, 10/02/2020, Additional history exists [facility]-DTaP,Tdap,and Td Vaccines (3 - Td or Tdap) 03/06/2027 03/06/2017, 07/24/2008 [facility]-RSV Vaccine: 60+ Years or (1 - 1-dose 75+ series) 2038 [facility]-Obesity Intervention Completed 022, 10/20/2022, 10/20/2022, Additional history exists HPV Vaccines [...] to complete this topic Insurance Care Teams Legal Support Assistant Relationship Specialty Start Date End Date Adolfo Weber MD [address] [place] [address] PCP - General Internal Medicine 09/22/22
--- OUTSIDE RECORDS SUMMARY | 2025-09-25 09:19 | XMS_ITS | Encounter Summary ---
Author Organization [facility] Address [address] [place] [address] Care Team Providers Care Electric Tripper Machine Operator Name Role Phone Adolfo Weber MD Primary Care Provider [phone] Encounter Details Date Type Department Care Team (Late Contact Info) Description 04/28/2025 Results Follow-Up [facility] [address] [facility] [address] [place] [address] Shayy Schulz, MEDIEVAL ENGLISH LITERATURE PROFESSOR [address] [facility] [address] [place] [address] Social History Tobacco Use Types Packs/Day Years Used Date Smoking Tobacco: Former Cigarettes Smokeless Tobacco: Never Comments:Quit 2018 28 yr 1 p pd Alcohol Use Standard Drinks/Week Comments No 0 [...] on file Sexual Orientation Not on file documented as of this encounter Plan of Treatment Upcoming Encounters Date Type Department Care Team (Late st Contact Info) Description 10/23/2025 8:30 AM EST Appointment [facility] [place] [address] [place] [address] 10/31/2025 10:15 AM EST Office Visit [facility] [address] [facility] [address] [place] [address] Shayy Schulz, MEDIEVAL ENGLISH LITERATURE PROFESSOR [address] [facility] [address] [place] [address] documented as of this encounter Visit Diagnoses Not on filedocumented in this encounter Care Teams Electric Tripper Machine Operator Relationship Specialty Start Date End Date Adolfo Weber MD [address] [facility] [address] [facility] [address] [place] [address] PCP - General Adolescent Medicine 04/15/18 documented as of this encounter
--- NOTE | 2025-09-25 09:39 | MM_ITS ---
PROCEDURE INFORMATION: Exam: MG Bilateral Screening 3D Mammography Exam date and time: 09/25/2025 9:52 AM Age: 60 years old Clinical indication: Screening. No family history of breast cancer. TECHNIQUE: Imaging protocol: Bilateral Screening tomosynthesis and 2D mammography including computer-aided detection (CAD) when performed. COMPARISON: 1. MG MM DIG SCREENING MAMM BI W/CAD 09/22/2024 7:46 AM 2. MG MM DIG SCREENING MAMM BI W/CAD 10/09/2023 7:48 AM FINDINGS: MAMMOGRAPHY: Breast composition: There are scattered areas of fibroglandular density. Mass: No suspicious mass. Architectural distortion: None. Calcifications: No suspicious calcifications. Asymmetric density: None. Skin thickening: None. Axillary adenopathy: None. IMPRESSION: No mammographic evidence of malignancy. Annual screening is recommended unless otherwise clinically indicated. ASSESSMENT: BI-RADS Category 1: Negative.
== END 2025-09-25 23:59 | disposition home or self-care (01) ==
LOC: RAD 09:08
PROVIDERS: PCP Internal Medicine Adolescent Medicine; Visit Provider Internal Medicine Adolescent Medicine
DX: Z12.31 Encounter for screening mammogram for malignant neoplasm of breast (principal); R92.323 Mammographic fibroglandular density, bilateral breasts; R91.8 Other nonspecific abnormal finding of lung field; Z12.2 Encounter for screening for malignant neoplasm of respiratory organs; Z87.891 Personal history of nicotine dependence; Z78.0 Asymptomatic menopausal state
CPT/HCPCS: 71271; 77063; 77067; 77080

== ENCOUNTER 2025-11-03 14:08 | Outpatient (CLI) | payer OTHER, SELFPAY ==
--- NOTE | 2025-11-03 14:09 | CT_ITS ---
FINAL REPORT TECHNIQUE: Thin section axial images were obtained from the lung bases to the pubic symphysis without IV contrast. Coronal and sagittal reconstruction images were obtained from the axial data. Exam was performed using dose reduction technique. CLINICAL HISTORY: CYSTITIS HEMATURIA pt stated that she has had a hysterectomy and appendectomy COMPARISON: 01/15/2024 FINDINGS: The lung bases are clear. No renal or ureteral stones are identified. There is no hydronephrosis. The gallbladder is present. The remaining unenhanced solid abdominal organs are unremarkable. There is no evidence of small bowel obstruction. The appendix is surgically absent. GI tract is without acute abnormality. There is no lymphadenopathy or ascites. There are small fat-containing bilateral inguinal hernias. No acute osseous abnormality is identified. IMPRESSION: No renal or ureteral stones. No hydronephrosis. Reviewed, Interpreted and Dictated by Carolina Moralez MD Transcribed by Rakel Daniels Authenticated and [facility]
== END 2025-11-03 23:59 | disposition home or self-care (01) ==
LOC: RAD 14:09
PROVIDERS: PCP Internal Medicine Adolescent Medicine; Visit Provider Internal Medicine Adolescent Medicine
DX: N30.91 Cystitis, unspecified with hematuria (principal)
CPT/HCPCS: 74176